=== PATIENT | male | born 1955 | race Caucasian/White ===

== ENCOUNTER → 2017-09-02 | Outpatient (CLI) | payer OTHER ==
[2017-09-02 08:49] LABS: CREATININE 1.44 mg/dL (0.70-1.30)
--- NOTE | 2017-09-02 10:53 | CT ---
Examination: CT of the chest with contrast. Clinical history: Cough, shortness of breath. Technique: Multiple axial images were obtained from the lung apices down to the lung bases, following the intravenous administration of 100 mL of Omnipaque 350. Dose reduction techniques including autom ated exposure control (AEC) and adjustment of mA and kV were utilized. Comparison: None available. Findings: There are multiple sternal wires and surgical clips in the mediastinum, consistent with a prior CABG. The heart is normal in size. The thoracic aorta is calcified with associated atherosclerotic changes, but is normal in caliber. Th e remainder of the great vessels are within normal limits. A small 1.7 x 0.8 cm right lower paratracheal lymph node is noted. No enlarged lymph nodes, by CT cri teria, are noted in the mediastinum, rita or axilla bilaterally. No central obstructing bronchial lesion is noted. No pleural or pericardial effusion is noted. Early emphysematous changes are noted at the lung apices bilaterally. The lungs otherwise clear. There is a 4.9 cm exophytic low-density mass associated with the mid to upper pole of the right kidne y, which measures approximately 23 Hounsfield units on the post contrasted images and probably repres ents a complicated benign cyst. A CT of the abdomen, with and without intravenous contrast could be o btained to exclude the possibility of a cystic neoplasm. The remainder of the visualized portion of t he upper abdomen is unremarkable. Degenerative changes are noted in the spine. No acute osseous abnormality is noted. Impression: 1. Early emphysematous changes are noted at the lung apices bilaterally. The lungs otherwise clear. 2. There is a 4.9 cm exophytic low-density mass associated with the mid to upper pole of the right ki dney, which measures approximately 23 Hounsfield units on the post contrasted images and probably rep resents a complicated benign cyst. A CT of the abdomen, with and without intravenous contrast could b e obtained to exclude the possibility of a cystic neoplasm. 3. There are postsurgical changes from a prior CABG. Reported By:
== END ==
LOC: RAD 08:11
PROVIDERS: ATTEND Nurse Practitioner Family
DX: R07.89 Other chest pain (principal); I25.10 Atherosclerotic heart disease of native coronary artery without angina pectoris; I70.219 Atherosclerosis of native arteries of extremities with intermittent claudication, unspecified extremity; J40 Bronchitis, not specified as acute or chronic; R09.89 Other specified symptoms and signs involving the circulatory and respiratory systems
CPT/HCPCS: 36415; 71260; 82565; 84520; A4222

== ENCOUNTER 2022-05-28 10:49 | Observation (INO) ==
[2022-05-28] MEDS: DUONEB 0.5 MG/3 MG (3 mL) NEB SCH ×3 (13:30→20:25)
[2022-05-28 14:27] LABS: BASOPHILS # (AUTO) 0.1 X10^3/uL (0.0-0.1); BASOPHILS % (AUTO) 1.2 % (0.2-1.0); EOSINOPHILS # (AUTO) 0.3 x10^3/uL (0.0-0.2); EOSINOPHILS % (AUTO) 2.8 % (0.9-2.9); HEMATOCRIT 46.2 % (42.0-54.0); HEMOGLOBIN 15.7 g/dL (13.5-18.0); LYMPHOCYTES # (AUTO) 4.2 X10^3/uL (1.3-2.9); LYMPHOCYTES % (AUTO) 35.8 % (21.0-51.0); MEAN CORPUSCULAR HEMOGLOBIN 28.6 pg (27.0-34.0); MEAN CORPUSCULAR HGB CONC 34.1 g/dL (33.0-35.0); MEAN PLATELET VOLUME 9.4 fL (7.4-11.0); MONOCYTES # (AUTO) 0.6 x10^3/uL (0.3-0.8); MONOCYTES % (AUTO) 5.5 % (0.0-13.0); NEUTROPHILS # (AUTO) 6.5 x10^3/uL (2.2-4.8); NEUTROPHILS % (AUTO) 54.7 % (42.0-75.0); RED CELL DISTRIBUTION WIDTH 15.3 % (11.6-16.5); WHITE BLOOD COUNT 11.8 X10^3/uL (3.6-10.0)
[2022-05-28 14:38] LABS: ALANINE AMINOTRANSFERASE 22 Units/L (12-78); ALBUMIN 3.8 g/dL (3.4-5.0); ALKALINE PHOSPHATASE 76 Units/L (46-116); ASPARTATE AMINO TRANSFERASE 13 Units/L (15-37); BLOOD UREA NITROGEN 17 mg/dL (7-18); CALCIUM 8.4 mg/dL (8.5-10.1); CARBON DIOXIDE 26.1 mmol/L (21-32); CHLORIDE 103 mmol/L (98-107); COR NA(FOR HYPERGLY) 137 mmol/L (136-145); SODIUM 137 mmol/L (136-145); TOTAL PROTEIN 7.1 g/dL (6.4-8.2); eGFR NON BLACK RACES 54 (>60)
[2022-05-28 15:48] VITALS: BMI 30.7
[2022-05-28] MEDS: NS 1,000 ML IV 1,000 ML IV SCH (16:00)
[2022-05-28] MEDS: LEVAQUIN PREMIX IV 750 MG 750 MG/150 ML BAG IV SCH (16:01)
[2022-05-28] MEDS: ZOSYN VIAL 4.5 GRAMS 4.5 G in NS 100 ML IV 100 ML IV SCH ×2 (16:03→21:12)
[2022-05-28] MEDS ORDERED: PULMICORT NEB TX 0.5 MG NEB ONE (19:27)
[2022-05-28] MEDS: PULMICORT NEB TX 0.5 MG NEB SCH (20:25)
[2022-05-28] MEDS: MORPHINE SULFATE INJ 2 MG INJ IVP PRN (23:47)
[2022-05-29] MEDS: DUONEB 0.5 MG/3 MG (3 mL) NEB SCH ×6 (00:05→21:00)
[2022-05-29 02:11] LABS: BASOPHILS # (AUTO) 0.1 X10^3/uL (0.0-0.1); BASOPHILS % (AUTO) 1.2 % (0.2-1.0); EOSINOPHILS # (AUTO) 0.1 x10^3/uL (0.0-0.2); EOSINOPHILS % (AUTO) 1.3 % (0.9-2.9); HEMATOCRIT 43.2 % (42.0-54.0); HEMOGLOBIN 14.8 g/dL (13.5-18.0); LYMPHOCYTES # (AUTO) 3.6 X10^3/uL (1.3-2.9); LYMPHOCYTES % (AUTO) 34.2 % (21.0-51.0); MEAN CORPUSCULAR HEMOGLOBIN 28.9 pg (27.0-34.0); MEAN CORPUSCULAR HGB CONC 34.4 g/dL (33.0-35.0); MEAN PLATELET VOLUME 9.3 fL (7.4-11.0); MONOCYTES # (AUTO) 0.6 x10^3/uL (0.3-0.8); MONOCYTES % (AUTO) 5.5 % (0.0-13.0); NEUTROPHILS # (AUTO) 6.1 x10^3/uL (2.2-4.8); NEUTROPHILS % (AUTO) 57.8 % (42.0-75.0); RED BLOOD COUNT 5.14 X10^6/uL (4.7-6.0); RED CELL DISTRIBUTION WIDTH 15.1 % (11.6-16.5); WHITE BLOOD COUNT 10.5 X10^3/uL (3.6-10.0)
[2022-05-29 02:22] LABS: ALBUMIN 3.3 g/dL (3.4-5.0); CALCIUM 7.9 mg/dL (8.5-10.1); CARBON DIOXIDE 26.8 mmol/L (21-32); COR CA(FOR HYPOALB) 8.5 mg/dL (8.5-10.1); CREATININE 1.49 mg/dL (0.70-1.30); TOTAL PROTEIN 6.2 g/dL (6.4-8.2)
[2022-05-29] MEDS: MORPHINE SULFATE INJ 2 MG INJ IVP PRN (03:56)
[2022-05-29] MEDS: NS 1,000 ML IV 1,000 ML IV SCH ×3 (03:58→19:53)
[2022-05-29] MEDS: ZOSYN VIAL 4.5 GRAMS 4.5 G in NS 100 ML IV 100 ML IV SCH ×3 (05:08→21:16)
--- NOTE | 2022-05-29 07:36 | RAD ---
HISTORYPneumoniaSTUDYChest AP [id number]/01/2022FINDINGSPati ent is status post median sternotomy and CABG. Heart size is normal. Serene are normal. Lung lopez are clear. No pleural effusions are identified. Bony thorax is unremarkable.IMPRESSIONNo significant abnormality identifiedElectronically signed by: NANCY RINALDI (May 29, 2022 07:35:13)
--- NOTE | 2022-05-29 08:25 | RAD ---
HISTORYFollow-up pneumoniaSTUDYChest AP [id number]/19/2022FINDINGSPati ent is status post median sternotomy and CABG. Heart size is normal. Serene are normal. Lungs are mildly hyperinflated but free of acute infiltrates. No pleural effusions are identified. Bony thorax is unremarkable.IMPRESSIONLungs hyperinflated but clearElectronically signed by: NANCY RINALDI (May 29, 2022 08:23:32)
[2022-05-29] MEDS: PULMICORT NEB TX 0.5 MG NEB SCH ×2 (08:37→21:00)
[2022-05-29] MEDS: LOVENOX INJ 40 MG SYR SC SCH (10:00)
[2022-05-29] MEDS: LEVAQUIN PREMIX IV 750 MG 750 MG/150 ML BAG IV SCH (10:00)
[2022-05-29] MEDS: DEMEROL INJ IVP PRN ×2 (11:34→17:57)
[2022-05-29] MEDS: PEPCID TAB 20 MG PO SCH (11:36)
[2022-05-29] MEDS: FLOMAX PO SCH (11:36)
[2022-05-29] MEDS: HYDROCHLOROTHIAZIDE 25 MG TAB PO SCH (11:36)
[2022-05-29] MEDS: PERCOCET TAB 5/325 MG PO SCH ×3 (11:45→21:15)
--- NOTE | 2022-05-29 13:14 | DR.UPDATE ---
H&P Update H&P Reviewed: Yes Any changes to H&P?: Yes Changes noted:: WAS A DIRECT ADMISSION FOR TREATMENT OF REFRACTORY SINUSITIS, DIZZINESS, AND BRONCHOPNEUMONIA. HE COMPLAINS OF INTRACTABLE HEADACHE, FRONTAL AND MAXILLARY SINUS TENDERNESS, DIZZINESS, NASAL CONGESTION, COUGH, AND INTERMITTENT CHEST DISCOMFORT. HE HAS TAKEN A Z-PACK AND LEVAQUIN 500MG PO DAILY X 7 DAYS, AND IPRATROPIUM NEBULIZER TREATMENTS WITHOUT IMPROVEMENT IN SYMPTOMS. ON ARRIVAL TO THE HOSPITAL, VITALS WERE 98.2 -64-20-97%-181/84. LABS WERE OBTAINED. WBC 11.87, RBC 5.50, HGB 15.7, HCT 46.2, SODIUM 137, POTASSIUM 4.5, CHLORIDE 103, CARBON DIOXIDE 26.1, BUN 17, CREATININE 1.40, GLUCOSE 118, CALCIUM 8.4, AST 13, ALT 22, ALK PHOS 76, TOTAL PROTEIN 7.1, ALBUMIN 3.8. A RESPIRATORY VIRAL PANEL WAS SET UP. CHEST XRAY WAS OBTAINED AND REVEALED: Patient is status post median sternotomy and CABG. Heart size is tosin l. Serene are normal. Lung lopez are clear. No pleural effusions are identified. Bony thorax is unremarkable. EKG REVEALED NORMAL SINUS RHYTHM WITH HR 60. HE WAS STARTED ON NORMAL SALINE AT 75 ML/HR, ZOSYN 4.5G IV TID, LEVAQUIN 750MG IV DAILY, DUONEBS Q4H, PULMICORT NEBS BID, LOVENOX 40MG SC DAILY, AND HIS HOME MEDICATIONS WERE RESUMED. WE WILL OBTAIN SERIAL CARDIAC ENZYMES AND EKGS, A CAROTID ULTRASOUND, AND A SINUS CT WITHOUT CONTRAST. OTHERWISE, WE PLAN TO FOLLOW-UP WITH AM LABS AND CONTINUE TO MONITOR. TIME SPENT ON CLINICAL ASSESSMENT, REVIWING LABS AND IMAGING, DECISION MAKING, AND DOCUMENTATION GREATER THAN 75 MINUTES. Patient was examined?: Yes
[2022-05-29] MEDS: NEURONTIN CAP 400 MG PO SCH ×2 (15:00→21:14)
[2022-05-30] MEDS: DEMEROL INJ IVP PRN ×2 (00:23→09:06)
[2022-05-30] MEDS: DUONEB 0.5 MG/3 MG (3 mL) NEB SCH ×3 (00:37→08:44)
[2022-05-30] MEDS: NEURONTIN CAP 400 MG PO SCH (05:21)
[2022-05-30] MEDS: PERCOCET TAB 5/325 MG PO SCH (05:23)
[2022-05-30] MEDS: ZOSYN VIAL 4.5 GRAMS 4.5 G in NS 100 ML IV 100 ML IV SCH (05:23)
[2022-05-30] MEDS: NS 1,000 ML IV 1,000 ML IV SCH ×2 (05:51→10:15)
[2022-05-30 06:44] LABS: BASOPHILS # (AUTO) 0.1 X10^3/uL (0.0-0.1); BASOPHILS % (AUTO) 1.2 % (0.2-1.0); EOSINOPHILS # (AUTO) 0.3 x10^3/uL (0.0-0.2); EOSINOPHILS % (AUTO) 3.1 % (0.9-2.9); HEMATOCRIT 41.7 % (42.0-54.0); HEMOGLOBIN 14.3 g/dL (13.5-18.0); LYMPHOCYTES # (AUTO) 4.6 X10^3/uL (1.3-2.9); LYMPHOCYTES % (AUTO) 44.5 % (21.0-51.0); MEAN CORPUSCULAR HGB CONC 34.3 g/dL (33.0-35.0); MEAN CORPUSCULAR VOLUME 84.6 fL (80.0-100.0); MEAN PLATELET VOLUME 9.8 fL (7.4-11.0); MONOCYTES # (AUTO) 0.7 x10^3/uL (0.3-0.8); MONOCYTES % (AUTO) 6.7 % (0.0-13.0); NEUTROPHILS # (AUTO) 4.6 x10^3/uL (2.2-4.8); NEUTROPHILS % (AUTO) 44.5 % (42.0-75.0); RED BLOOD COUNT 4.93 X10^6/uL (4.7-6.0); RED CELL DISTRIBUTION WIDTH 15.4 % (11.6-16.5); WHITE BLOOD COUNT 10.4 X10^3/uL (3.6-10.0)
[2022-05-30 06:58] LABS: ALANINE AMINOTRANSFERASE 20 Units/L (12-78); ALBUMIN 3.2 g/dL (3.4-5.0); ALKALINE PHOSPHATASE 70 Units/L (46-116); ASPARTATE AMINO TRANSFERASE 11 Units/L (15-37); BLOOD UREA NITROGEN 14 mg/dL (7-18); CALCIUM 7.8 mg/dL (8.5-10.1); CARBON DIOXIDE 25.1 mmol/L (21-32); CHLORIDE 107 mmol/L (98-107); COR CA(FOR HYPOALB) 8.4 mg/dL (8.5-10.1); COR NA(FOR HYPERGLY) 143 mmol/L (136-145); CREATININE 1.33 mg/dL (0.70-1.30); SODIUM 142 mmol/L (136-145); TOTAL PROTEIN 6.3 g/dL (6.4-8.2); eGFR NON BLACK RACES 57 (>60)
[2022-05-30] MEDS: PULMICORT NEB TX 0.5 MG NEB SCH (08:44)
[2022-05-30] MEDS: LEVAQUIN PREMIX IV 750 MG 750 MG/150 ML BAG IV SCH (08:55)
[2022-05-30] MEDS: HYDROCHLOROTHIAZIDE 25 MG TAB PO SCH (08:56)
[2022-05-30] MEDS: LOVENOX INJ 40 MG SYR SC SCH (08:56)
[2022-05-30] MEDS: FLOMAX PO SCH (08:56)
[2022-05-30] MEDS: PEPCID TAB 20 MG PO SCH (08:56)
--- NOTE | 2022-05-30 09:16 | VAS ---
HISTORY: Concern for carotid artery stenosis. Dizziness.EXAM: BILATERAL DOPPLER CAROTID ULTRASOUND EXAMTechnique: Multiple avila scale and color flow Doppler images of the right and left carotid arterial system were obtained. The vertebral arterial system was evaluated as well.Findings:Nonocclusive color flow Doppler is seen throughout the right and left carotid arterial system. No hemodynamically significant carotid arterial stenosis is seen based on velocity criteria. There is moderate bilateral carotid atherosclerosis and hard plaque formation of the bilateral carotid bulbs and ICAs with associated intimal thickening but without evidence for high-grade stenosis (>70%) or occlusion of the carotid arteries. The right and left vertebral artery demonstrate antegrade flow.IMPRESSION:Moderate bilateral carotid atherosclerosis and hard atherosclerotic plaque formation of the bilateral carotid bulbs and [in both] ICAs with [id number] associated carotid intimal thickening but without evidence for high-grade stenosis or occlusion of the carotid arteries, based on Doppler velocity criteria.Appropriate, antegrade, vertebral arterial flow.Peak right ICA velocity: 118 centimeter/seconds.Peak right CCA velocity: 76 centimeter/seconds.Peak left ICA velocity: 84 centimeter/seconds.Peak left CCA velocity: 54 centimeter/seconds.Right ICA to CCA ratio: 2.0.Left ICA to CCA ratio: 1.8.Electronically signed by: SAÚL JAQUEZ III (May 30, 2022 09:13:52)
[2022-05-30 10:13] VITALS: BP 159/71
== END 2022-05-30 13:34 | disposition home or self-care (01) ==
LOC: MED/SURG
PROVIDERS: ADMIT Internal Medicine; ATTEND Internal Medicine
DX: Z86.79 Personal history of other diseases of the circulatory system; Z20.822 Contact with and (suspected) exposure to COVID-19; J18.0 Bronchopneumonia, unspecified organism; E11.65 Type 2 diabetes mellitus with hyperglycemia; Z72.0 Tobacco use; J01.00 Acute maxillary sinusitis, unspecified; Z95.1 Presence of aortocoronary bypass graft; R51.9 Headache, unspecified; I10 Essential (primary) hypertension; I25.10 Atherosclerotic heart disease of native coronary artery without angina pectoris; R42 Dizziness and giddiness; B96.89 Other specified bacterial agents as the cause of diseases classified elsewhere; R07.9 Chest pain, unspecified; Z16.39 Resistance to other specified antimicrobial drug

== ENCOUNTER 2023-03-17 13:46 | Inpatient (IN) ==
--- NOTE | 2023-03-17 14:30 | DR.DIZZY ---
HPI Time seen Time Seen by Provider: 03/17/23 14:30 PCP Primary Care Physician: Dr. Ruff Complaint Chief Complaint Doctor Comments: 67 y/o male presents for evaluation. Having increasing weakness, dramatic weight loss over the past 6 weeks or so. Has had decreased appetite, worsening constipation. Has been falling frequently. Has left rib, R shoulder pain from recent falls. Saw GI today, recently had an EGD, dx'd with gastroparesis. Had a colonoscopy last year. Denies headache, visual changes, changes in meds. No URI symptoms. Has slight cough. No dyspnea. Denies vomiting or diarrhea. No urinary issues. Feels weak in general. Chief Complaint:: Pt states that over the past 6 weeks he has had around 45 lb weight loss. Over this period of time he has had progressively worsening generalized weakness, unsteady gait and several falls at home. Pt has had two falls this week. Pt c/o right shoulder pain and left rib pain from these recent falls. Nurses Notes Reviewed Nurses Notes Review: Yes Source History Provided: Patient Mode of Arrival Mode of Arrival: Wheelchair Timing Onset of Chief Complaint: 03/17/23 Context Stroke Symptoms: None PMH PMH Past Medical History: Yes Past Medical History: COPD, Coronary Artery Disease and Dyslipidemia Past Medical History Comment: gastroparesis Past Surgical History: Yes Surgical History: CABG/Valve Surgery Family History History of Family Medical Conditions: Yes Family Medical History: Diabetes Mellitus and Hypertension Social History Does patient currently use any type of tobacco product: Yes Have you used tobacco products in the last 12 months: Yes Type of Tobacco Use: Cigarettes Does any household member use tobacco: No Alcohol Use: None Do you use any recreational Drugs:: No Lives With: Spouse Lives Where: Home Infectious screening In the last 2 months have you had wt loss of >10#?: NO Have you had fever, night sweats or hemotysis?: No Have you traveled outside the country in the last 6 months?: No Isolation: Standard ROS Review of Systems Constitutional: Malaise and Weakness Eyes: No Symptoms Reported ENTM: No Symptoms Reported Respiratoy: Moist Cough Cardiovascular: Chest Pain (from fall) Gastrointestinal/Abdominal: Constipation Genitourinary: No Symptoms Reported Neurological: Weakness Musculoskeletal: No Symptoms Reported Integumentary: No Symptoms Reported Hematologic/Lymphatic: No Symptoms Reported All Other Systems: Reviewed and Negative PE Vital Signs Vitals: Vital Signs Temperature 98.1 F Pulse Rate 57 Pulse Rate 62 Pulse Rate 59 Pulse Rate 61 Pulse Rate 61 Pulse Rate 70 Pulse Rate 71 Pulse Rate 63 Pulse Rate 63 Pulse Rate 61 Pulse Rate 79 Pulse Rate 63 Respiratory Rate 22 Blood Pressure 157/72 Blood Pressure 153/74 Blood Pressure 172/82 Blood Pressure 154/84 Blood Pressure 187/86 O2 Sat by Pulse Oximetry 100 O2 Sat by Pulse Oximetry 98 O2 Sat by Pulse Oximetry 100 O2 Sat by Pulse Oximetry 98 O2 Sat by Pulse Oximetry 97 O2 Sat by Pulse Oximetry 97 O2 Sat by Pulse Oximetry 97 O2 Sat by Pulse Oximetry 98 O2 Sat by Pulse Oximetry 97 O2 Sat by Pulse Oximetry 98 O2 Sat by Pulse Oximetry 98 O2 Sat by Pulse Oximetry 100 General General Appearance: Alert and In No Apparent Distress Head Head Exam: Normal Inspection Eyes Eye exam: PERRL and EOMI ENT ENT Exam: Normal Exam, Normal Oropharynx and Mucous Membranes Moist Neck Neck Exam: Normal Inspection and Full ROM Respiratory Respiratory Exam: Normal Lung Sounds Bilat; negative Accessory Muscle Use or Respiratory Distress Cardiovascular Cardiovascular Exam: Regular Rate, Normal Rhythm and Normal Heart Sounds Abdominal Exam Abdominal Exam: Normal Bowel Sounds and Soft; negative Tenderness Extremeties Extremities Exam: Normal Inspection and Full ROM; negative Edema Neurologic Neurological Exam: Alert, Oriented X3 and CN II-XII Intact; negative Motor Sensory Deficit Skin Skin Exam: Warm and Dry COURSE Treatment Treatment: 67 y/o male with worsening weakness over the past several weaks, with a significant weight loss. PE benign, w/u initiated. 1614 - labs show calcium to be markedly elevated - 15.6. Rest of w/u overall acceptable. Highly concerning for possible bony malignancy. Recommend admission for IV hydration, to help lower calcium level. ROR Labs Reviewed Laboratory Results Reviewed?: Yes 03/17/23 15:10 03/17/23 15:10 Laboratory: WBC 16.0 X10^3/uL (3.6-10.0) H 03/17/23 15:10 RBC 5.98 X10^6/uL (4.7-6.0) 03/17/23 15:10 Hgb 16.3 g/dL (13.5-18.0) 03/17/23 15:10 Hct 49.5 % (42.0-54.0) 03/17/23 15:10 MCV 82.8 fL (80.0-100.0) 03/17/23 15:10 MCH 27.2 pg (27.0-34.0) 03/17/23 15:10 MCHC 32.8 g/dL (33.0-35.0) L 03/17/23 15:10 RDW 14.3 % (11.6-16.5) 03/17/23 15:10 Plt Count 364 X10^3/uL (150.0-450.0) 03/17/23 15:10 MPV 9.2 fL (7.4-11.0) 03/17/23 15:10 Neut % (Auto) 71.7 % (42.0-75.0) 03/17/23 15:10 Lymph % (Auto) 18.1 % (21.0-51.0) L 03/17/23 15:10 [place] % (Auto) 7.7 % (0.0-13.0) 03/17/23 15:10 Eos % (Auto) 1.3 % (0.9-2.9) 03/17/23 15:10 Baso % (Auto) 1.2 % (0.2-1.0) H 03/17/23 15:10 Neut # (Auto) 11.5 x10^3/uL (2.2-4.8) H 03/17/23 15:10 Lymph # (Auto) 2.9 X10^3/uL (1.3-2.9) 03/17/23 15:10 [place] # (Auto) 1.2 x10^3/uL (0.3-0.8) H 03/17/23 15:10 Eos # (Auto) 0.2 x10^3/uL (0.0-0.2) 03/17/23 15:10 Baso # (Auto) 0.2 X10^3/uL (0.0-0.1) H 03/17/23 15:10 Absolute Nucleated RBC 0.1 /100WBC 03/17/23 15:10 Sodium 134 mmol/L (136-145) L 03/17/23 15:10 Corrected Sodium 134 mmol/L (136-145) L 03/17/23 15:10 Potassium 3.3 mmol/L (3.5-5.1) L 03/17/23 15:10 Chloride 95 mmol/L (98-107) L 03/17/23 15:10 Carbon Dioxide 34.9 mmol/L (21-32) H 03/17/23 15:10 BUN 17 mg/dL (7-18) 03/17/23 15:10 Creatinine 2.02 mg/dL (0.70-1.30) H 03/17/23 15:10 Est GFR (MDRD) Af Amer 42 (>60) L 03/17/23 15:10 Est GFR (MDRD) Non-Af 35 (>60) L 03/17/23 15:10 Glucose 116 mg/dL (65-99) H 03/17/23 15:10 Calcium 15.6 mg/dL (8.5-10.1) H* 03/17/23 15:10 Corrected Calcium 16.2 mg/dL (8.5-10.1) H 03/17/23 15:10 Total Bilirubin 0.50 mg/dL (0.2-1.0) 03/17/23 15:10 AST 15 Units/L (15-37) 03/17/23 15:10 ALT 16 Units/L (12-78) 03/17/23 15:10 Alkaline Phosphatase 110 Units/L (46-116) 03/17/23 15:10 Troponin I High Sens 7.0 ng/L (4.0-60.0) 03/17/23 15:10 Total Protein 7.7 g/dL (6.4-8.2) 03/17/23 15:10 Albumin 3.3 g/dL (3.4-5.0) L 03/17/23 15:10 Globulin 4.4 g/dL (2.5-4.5) 03/17/23 15:10 Albumin/Globulin Ratio 0.8 Ratio (1.1-2.1) L 03/17/23 15:10 Lipase 99 Units/L (73-393) 03/17/23 15:10 TSH 3rd Generation 0.755 uIU/mL (0.358-3.74) 03/17/23 15:10 Specimen Type Clean catch urine 03/17/23 15:46 Urine Color Yellow (YELLOW) 03/17/23 15:46 Urine Appearance Hazy (CLEAR) 03/17/23 15:46 Urine pH 6.0 (5.0 - 8.0) 03/17/23 15:46 Ur Specific Lares 1.020 (1.000-1.030) 03/17/23 15:46 Urine Protein 1+ (NEGATIVE) 03/17/23 15:46 Urine Glucose (UA) Negative (NEGATIVE) 03/17/23 15:46 Urine Ketones Negative (NEGATIVE) 03/17/23 15:46 Urine Blood Negative (NEGATIVE) 03/17/23 15:46 Urine Nitrite Negative (NEGATIVE) 03/17/23 15:46 Urine Bilirubin Negative (NEGATIVE) 03/17/23 15:46 Urine Urobilinogen Normal (NORMAL) 03/17/23 15:46 Ur Leukocyte Esterase Negative (NEGATIVE) 03/17/23 15:46 Urine RBC None seen /HPF (0-3) 03/17/23 15:46 Urine WBC 0-2 /HPF (0-5) 03/17/23 15:46 Ur Squamous Epith Cells Few /HPF (NEGATIVE) 03/17/23 15:46 Amorphous Sediment 2+ /HPF (NEGATIVE) 03/17/23 15:46 Urine Bacteria Trace /HPF (NEGATIVE) 03/17/23 15:46 Hyaline Casts Few /LPF (NEGATIVE) 03/17/23 15:46 Urine Mucus Few /HPF (NEGATIVE) 03/17/23 15:46 Ur Culture Indicated? No/not indicated 03/17/23 15:46 Markedly elevated calcium XRAY XRAY Interpreted by: Both X-ray Results: CXR, R shoulder, L ribs - all without acute abnormallities. Opioid Opioid Risk Tool Total: 0 Total Score Risk Category: Low Risk Copyright: Nathaniel JAMES predicting aberrant behaviors Discharge Plan Diagnosis Discharge Problem: Hypercalcemia Discharge Plan Patient Disposition: 09 ADMITTED INPATIENT Condition: Stable Orders to Discharge Patient Discharge Orders: Transfer (Routine); Ordered 03/17/23 Ordered By: Bhupinder Crawley
[2023-03-17] MEDS ORDERED: NS 1,000 ML IV 1,000 ML IV ONE (14:35)
[2023-03-17] MEDS ORDERED: NS 1,000 ML IV 1,000 ML ONE (14:39)
[2023-03-17 15:20] LABS: BASOPHILS # (AUTO) 0.2 X10^3/uL (0.0-0.1); BASOPHILS % (AUTO) 1.2 % (0.2-1.0); EOSINOPHILS # (AUTO) 0.2 x10^3/uL (0.0-0.2); EOSINOPHILS % (AUTO) 1.3 % (0.9-2.9); HEMATOCRIT 49.5 % (42.0-54.0); HEMOGLOBIN 16.3 g/dL (13.5-18.0); LYMPHOCYTES # (AUTO) 2.9 X10^3/uL (1.3-2.9); LYMPHOCYTES % (AUTO) 18.1 % (21.0-51.0); MEAN CORPUSCULAR HEMOGLOBIN 27.2 pg (27.0-34.0); MEAN CORPUSCULAR HGB CONC 32.8 g/dL (33.0-35.0); MEAN CORPUSCULAR VOLUME 82.8 fL (80.0-100.0); MEAN PLATELET VOLUME 9.2 fL (7.4-11.0); MONOCYTES # (AUTO) 1.2 x10^3/uL (0.3-0.8); MONOCYTES % (AUTO) 7.7 % (0.0-13.0); NEUTROPHILS # (AUTO) 11.5 x10^3/uL (2.2-4.8); NEUTROPHILS % (AUTO) 71.7 % (42.0-75.0); PLATELET COUNT 364 X10^3/uL (150.0-450.0); RED BLOOD COUNT 5.98 X10^6/uL (4.7-6.0); RED CELL DISTRIBUTION WIDTH 14.3 % (11.6-16.5)
[2023-03-17 15:40] LABS: ALBUMIN 3.3 g/dL (3.4-5.0); CARBON DIOXIDE 34.9 mmol/L (21-32); CREATININE 2.02 mg/dL (0.70-1.30); POTASSIUM 3.3 mmol/L (3.5-5.1); TOTAL PROTEIN 7.7 g/dL (6.4-8.2); TSH (3RD GENERATION) 0.755 uIU/mL (0.358-3.74)
[2023-03-17 15:51] LABS: BILIRUBIN,URINE NEGATIVE (NEGATIVE); BLOOD/HEMOGLOBIN,URINE NEGATIVE (NEGATIVE); GLUCOSE, URINE NEGATIVE (NEGATIVE); KETONES,URINE NEGATIVE (NEGATIVE); LEUKOCYTE ESTERASE ,URINE NEGATIVE (NEGATIVE); NITRITES,URINE NEGATIVE (NEGATIVE); PROTEIN,URINE 1+ (NEGATIVE); UROBILINOGEN,URINE NORMAL (NORMAL)
--- NOTE | 2023-03-17 15:52 | CT ---
EXAM: HEAD CT WITHOUT INTRAVENOUS CONTRASTHISTORY: Frequent falls. Cannot keep balance.TECHNIQUE: Spiral axial CT images are obtained through the brain without the administration of intravenous contrast. Sagittal and coronal reformatted images are reconstructed.DOSIMETRY: Total DLP 912.24 mGycm; CTDI 48 mGyCOMPARISON: None available.FINDINGS:There is mild diffuse cerebral cortical atrophy. The centrum semiovale, basal ganglia, cerebellum, and brainstem are otherwise grossly unremarkable for a noncontrast CT scan. Atherosclerosis of the carotid siphons is seen. Consider follow-up MRA as clinically warranted.There is no acute intracranial hemorrhage, discernible acute infarction, mass lesion, midline shift, or hydrocephalus seen. Nonspecific pineal gland calcification is seen. No extra-axial mass or abnormal fluid collection is seen.The calvarium is intact. The partially imaged paranasal sinuses, middle ear cavities, and mastoid air cells are clear.IMPRESSION:1. No skull fracture, intracranial hemorrhage, discernible acute infarction, mass lesions, midline shift, mass effect or hydrocephalus seen.2. Mild diffuse cerebral cortical atrophy.3. Atherosclerosis of the carotid siphons is seen.4. Consider followup evaluation with MRI /MRA imaging for further assessment as clinically warranted.Electronically signed by: Nel Mckeon (Mar 17, 2023 15:49:21)
[2023-03-17 15:54] LABS: CALCIUM 15.6 mg/dL (8.5-10.1); COR CA(FOR HYPOALB) 16.2 mg/dL (8.5-10.1)
[2023-03-17 15:59] LABS: APPEARANCE,URINE HAZY (CLEAR); BACTERIA,URINE TRACE /HPF (NEGATIVE); COLOR,URINE YELLOW (YELLOW); HYALINE CASTS, URINE FEW /LPF (NEGATIVE); RBC,URINE NONE SEEN /HPF (0-3); SQUAMOUS EPITHELIAL CELL,UR FEW /HPF (NEGATIVE)
[2023-03-17] MEDS ORDERED: PROTONIX INJ 40 MG VIAL IVP ONE (16:29)
[2023-03-17] MEDS ORDERED: MAALOX or MYLANTA PO ONE (16:30)
[2023-03-17] MEDS ORDERED: MAALOX or MYLANTA ONE (16:32)
[2023-03-17] MEDS ORDERED: PROTONIX INJ 40 MG VIAL ONE (16:32)
[2023-03-17] MEDS ORDERED: CONSULT PHARMACY - POTASSIUM & MAGNESIUM XX SCH (17:36)
[2023-03-17] MEDS: D5 1/2 NS 1,000 ML 1,000 ML IV SCH (18:15)
[2023-03-17] MEDS: NICOTINE PATCH TD SCH (18:16)
[2023-03-17] MEDS ORDERED: K-DUR TAB 20 MEQ PO ONE (19:00)
[2023-03-17] MEDS: NEURONTIN CAP 400 MG PO SCH (21:02)
[2023-03-17] MEDS: ROXICODONE TAB 15 MG PO PRN (21:04)
--- NOTE | 2023-03-17 22:54 | RAD ---
HISTORYRib pain, injury in a fall, weakness and weight loss deleteSTUDYRIB SERIESCOMPARISONNoneFINDINGSThe frontal chest radiograph demonstrates abnormal masslike density in the right infrahilar lung. Median sternotomy wires. No displaced fracture.IMPRESSIONMasslike density right infrahilar chest requires further evaluation with contrast enhanced CT of the chest. Pulmonary malignancy, summation artifact, vascular engorgement or adenopathy would be differential considerations.No displaced rib fracture.Electronically signed by: Lalo Johnson (Mar 17, 2023 22:52:22)
--- NOTE | 2023-03-17 22:59 | RAD ---
HISTORYRight shoulder painSTUDYSHOULDER, RIGHTCOMPARISONNoneFINDINGSMedian sternotomy wires. There is lucency and cortical loss involving the distal clavicle which could be due to re-absorption. Shoulder is not dislocated. Possible right infrahilar mass.IMPRESSIONRight infrahilar masslike density may represent lung malignancy. Contrast enhanced CT imaging of the chest is suggested.Demineralization and cortical loss distal clavicle.Electronically signed by: Lalo Johnson (Mar 17, 2023 22:58:24)
[2023-03-18] MEDS: D5 1/2 NS 1,000 ML 1,000 ML IV SCH ×2 (01:04→07:28)
[2023-03-18] MEDS: NEURONTIN CAP 400 MG PO SCH (05:05)
[2023-03-18 06:22] LABS: ALBUMIN 2.7 g/dL (3.4-5.0); CARBON DIOXIDE 33.4 mmol/L (21-32); COR CA(FOR HYPOALB) 15.3 mg/dL (8.5-10.1); CREATININE 1.97 mg/dL (0.70-1.30); POTASSIUM 3.9 mmol/L (3.5-5.1); TOTAL PROTEIN 6.4 g/dL (6.4-8.2)
[2023-03-18 06:23] LABS: BASOPHILS # (AUTO) 0.1 X10^3/uL (0.0-0.1); BASOPHILS % (AUTO) 0.7 % (0.2-1.0); EOSINOPHILS # (AUTO) 0.4 x10^3/uL (0.0-0.2); EOSINOPHILS % (AUTO) 2.8 % (0.9-2.9); HEMATOCRIT 43.9 % (42.0-54.0); HEMOGLOBIN 14.7 g/dL (13.5-18.0); LYMPHOCYTES % (AUTO) 19.7 % (21.0-51.0); MEAN CORPUSCULAR HEMOGLOBIN 27.4 pg (27.0-34.0); MEAN CORPUSCULAR HGB CONC 33.4 g/dL (33.0-35.0); MEAN PLATELET VOLUME 9.7 fL (7.4-11.0); MONOCYTES # (AUTO) 1.2 x10^3/uL (0.3-0.8); MONOCYTES % (AUTO) 7.5 % (0.0-13.0); NEUTROPHILS # (AUTO) 10.7 x10^3/uL (2.2-4.8); NEUTROPHILS % (AUTO) 69.3 % (42.0-75.0); PLATELET COUNT 331 X10^3/uL (150.0-450.0); RED BLOOD COUNT 5.35 X10^6/uL (4.7-6.0); RED CELL DISTRIBUTION WIDTH 14.2 % (11.6-16.5); WHITE BLOOD COUNT 15.5 X10^3/uL (3.6-10.0)
[2023-03-18 06:31] LABS: CALCIUM 14.3 mg/dL (8.5-10.1)
[2023-03-18] MEDS: D5 NS 1,000 ML IV 1,000 ML IV SCH ×2 (08:30→20:26)
[2023-03-18] MEDS: ROXICODONE TAB 15 MG PO PRN ×2 (08:57→20:25)
[2023-03-18] MEDS: ATIVAN TAB 1 MG PO PRN (08:57)
[2023-03-18] MEDS: NICOTINE PATCH TD SCH (08:57)
[2023-03-18] MEDS: FLOMAX PO SCH (08:57)
[2023-03-18] MEDS ORDERED: LASIX IVP SCH (09:00)
[2023-03-18] MEDS ORDERED: PROTONIX TAB 40 MG PO SCH (09:00)
[2023-03-18] MEDS ORDERED: KEFLEX CAP 500 MG PO SCH (09:00)
[2023-03-18] MEDS ORDERED: PROTONIX INJ 40 MG VIAL IVP SCH (12:00)
--- NOTE | 2023-03-18 12:04 | DR.H&P ---
H&P - History & Physical for Day of: H&P Date: 03/17/23 - Chief Complaint Chief Complaint: WEAKNESS, WEIGHT LOSS, DECREASED APPETITE, COUGH - History of Present Illness History of Present Illness: IS A 67 YEAR OLD PATIENT OF OURS. HE PRESENTED TO THE ER WITH COMPLAINTS OF INCREASING WEAKNESS, WEIGHT LOSS, DECREASED APPETITE, AND WORSENING CONSTIPATION. HE ADMITS TO A 45 POUND WEIGHT LOSS OVER THE PAST 6 WEEKS. HE ALSO REPORTS RIGHT SHOULDER PAIN AND LEFT RIB PAIN DUE TO RECENT FALLS. PATIENT REPORTS THAT HE HAS BEEN FALLING FREQUENTLY. HE SAW THE PRODUCTION COST ESTIMATOR RECENTLY FOR AN EGD. HE WAS DIAGNOSED WITH GASTROPARESIS. HE REPORTS HAVING A COLONOSCOPY LAST YEAR. HE DENIES HEADACHE, VISUAL CHANGES, URI SYMPTOMS, OR CHANGES IN MEDICATIONS. HE DOES ADMIT TO HAVING A SLIGHT. COUGH. HE DESCRIBES HIS RIB AND SHOULDER PAIN DULL AND ACHING. HE RATES PAIN A HIS PMH INCLUDES: COPD, CAD, DYSLIPIDEMIA, GASTROPARESIS, CABG. ON ARRIVAL TO THE ER, HIS VITALS WERE: 98.1-79-22-98%-187/86. LABS WERE OBTAINED. WBC 16.0, RBC 5.98, HGB 16.3, HCT 49.5, PLT COUNT 364, SODIUM 134, POTASSIUM 3.3, CHLORIDE 95, CARBON DIOXIDE 34.9, BUN 17, CREATININE 2.02, GLUCOSE 116, CALCIUM 15.6, MAGENSIUM 2.2, AST 15, ALT 16, ALK PHOS 110, TOTAL PROTEIN 7.7, ALBUMIN 3.3, GLOBULIN 4.4, LIPASE 99, TSH 0.755, PSA 1.32. A URINALYSIS WAS OBTAINED. WBC 0-2, RBC NONE SEEN, BACTERIA TRACE, URINE PROTEIN 1+. A RIB SERIES AND CHEST XRAY WAS OBTAINED AND REVEALED: Masslike density right infrahilar chest requires further evaluation with contrast enhanced CT of the chest. Pulmonary malignancy, summation artifact, vascular engorgement or adenopathy would be differential considerations. No displaced rib fracture. A RIGHT SHOULDER XRAY WAS OBTAINED AND REVEALED: Right infrahilar masslike density may represent lung malignancy. Contrast enhanced CT imaging of the chest is suggested. Demineralization and cortical loss distal clavicle. A BRAIN CT WITHOUT CONTRAST WAS OBTAINED AND REVEALED: No skull fracture,. intracranial hemorrhage, discernible acute infarction, mass lesions, midline shift, mass effect or hydrocephalus seen. 2. Mild diffuse cerebral cortical atrophy. 3. Atherosclerosis of the carotid siphons is seen. 4. Consider follow-up e valuation with MRI /MRA imaging for further assessment as clinically. warranted. IN THE ER, HE WAS GIVEN A NORMAL SALINE BOLUS, PROTONIX 40MG IV X 1, MAALOX 30ML PO X 1, POTASSIUM 40MEQ PO X 1. HE WAS ADMITTED TO THE HOSPITAL FOR FURTHER EVALUATION AND TREATMENT OF RIGHT LUNG MASS, WEIGHT LOSS, GENERALIZED WEAKNESS, DEHYDRATION, HYPERCALCEMIA, HYPOKALEMIA, HYPOALBUMINEMIA. HE WAS STARTED ON D5NS AT 150 ML/HR, PEPCID 20MG IV Q12H, PROTONIX 40MG IV BID, AND A NICOTINE PATCH. WE WILL RESUME HIS HOME MEDICATIONS OF GABAPENTIN, LORAZEPAM, ROXICODONE, AND FLOMAX. WE WILL OBTAIN A CHEST CT WITH CONTRAST TO FURTHER ASSESS THE RIGHT LUNG MASS. WE WILL ORDER A CEA LEVEL, IONIZED CALCIUM, PTH INTACT, UPEP, SPEP, AND PROTEIN ELECTROPHORESIS. WE WILL ORDER AN OUTPATIENT BONE SCAN. OTHERWISE, WE WILL FOLLOW-UP WITH AM LABS AND CONTINUE TO MONITOR. TIME SPENT ON CLINICAL ASSESSMENT, REVIEWING LABS AND IMAGING, DECISION MAKING, AND DOCUMENTATION GREATER THAN 75 MINUTES. - Past Medical History Past Medical History: Coronary Artery Disease, Dyslipidemia, COPD Additional Medical History: GASTROPARESIS - Past Surgical History Surgical History: CABG/Valve Surgery - Family History Family Medical History: Diabetes Mellitus, Hypertension - Social History Does patient currently use any type of tobacco product: Yes Have you used tobacco products in the last 12 months: Yes Type of Tobacco Use: Cigarettes Does any household member use tobacco: No Alcohol Use: None Drug Use: None - Review of Systems Constitutional: Weakness, Other (WEIGHT LOSS ) ENT: No Symptoms Reported Respiratory: Cough Cardiovascular: Chest Pain (LEFT SIDE CHEST AND RIB PAIN ) Gastrointestinal: Nausea, Constipation. denies: Vomiting, Abdominal Pain Genitourinary: No Symptoms Reported Musculoskeletal: Shoulder Pain (RIGHT ), Other (LEFT SIDE RIB PAIN ) Skin: No Symptoms Reported Neurological: Weakness - Physical Exam Vital Signs: Vital Signs Temperature 97.0 F Temperature 98.2 F Pulse Rate [Left Radial] 72 Pulse Rate [Left Radial] 68 Respiratory Rate 15 Respiratory Rate 15 Respiratory Rate 20 Respiratory Rate 20 Blood Pressure [Left Arm] 132/66 Blood Pressure [Left Arm] 192/77 Blood Pressure [Left Arm] 169/75 O2 Sat by Pulse Oximetry 97 O2 Sat by Pulse Oximetry 98 Oriented: Normal Eyes: Normal Ear: Normal Nose: Normal Throat: Normal Respiratory: Diminished Throughout Cardiovascular: Normal : Normal Auscultation: Bowel Sounds: Normal Palpation: Normal Tenderness: Normal Skin: Decreased Turgur Musculoskeletal: Right, Shoulder, Tender Psychiatric: Normal Mood Description: Calm Affect: Normal Speech Pattern: Clear - Assessment/Plan (1) Mass of right lung Status: Acute Plan: ADMIT, D5NS AT 150 ML/HR, PEPCID 20MG IV Q12H, PROTONIX 40MG IV BID, AND A NICOTINE PATCH. WE WILL RESUME HIS HOME MEDICATIONS OF GABAPENTIN, LORAZEPAM, ROXICODONE, AND FLOMAX. OBTAIN CHEST CT WITH CONTAST, CEA LEVEL, IONIZED CALCIU M, PTH INTACT, UPEP, SPEP, AND PROTEIN ELECTROPHORESIS (2) Dehydration Status: Acute (3) Hypercalcemia Status: Acute (4) Hypokalemia Status: Acute (5) Hypoalbuminemia Status: Acute (6) Generalized weakness Status: Acute (7) Weight loss Status: Acute (8) BPH (benign prostatic hyperplasia) Qualifiers: Lower urinary tract symptom presence: unspecified whether lower urinary tract symptoms present Qualified Code(s): N40.0 - Benign prostatic hyperplasia without lower urinary tract symptoms Status: Chronic (9) GERD (gastroesophageal reflux disease) Qualifiers: Esophagitis presence: esophagitis presence not specified Qualified Code(s): K21.9 - Gastro-esophageal reflux disease without esophagitis Status: Chronic (10) Generalized anxiety disorder Status: Chronic (11) Gastroparesis Status: Chronic - Allergies Allergies/Adverse Reactions: Allergies Allergy/AdvReac Type Severity Reaction Status Date / Time No Known Allergies Allergy Verified 03/17/23 14:45 - Medications Home Medications: Home Medications Medication Instructions Recorded Confirmed ergocalciferol (vitamin D2) 1,250 1,250 mcg PO QWEEK 03/17/23 03/17/23 mcg (50,000 unit) capsule furosemide 40 mg tablet 40 mg PO BID 03/17/23 03/17/23 gabapentin 800 mg tablet 800 mg PO TID 03/17/23 03/17/23 lorazepam 1 mg tablet 1 mg PO BID PRN 03/17/23 03/17/23 oxycodone 15 mg tablet 15 mg PO TID PRN pain 03/17/23 03/17/23 pantoprazole 40 mg tablet,delayed 40 mg PO QDAY 03/17/23 03/17/23 release tamsulosin 0.4 mg capsule 0.4 mg PO QDAY 03/17/23 03/17/23
[2023-03-18] MEDS: PEPCID 20 MG VIAL 20 MG in NS 50 ML IV 50 ML IV SCH (13:06)
[2023-03-18] MEDS: NEURONTIN CAP 300 MG PO SCH ×2 (13:07→21:03)
[2023-03-18] MEDS: LOVENOX INJ 40 MG SYR SC SCH (15:13)
[2023-03-18] MEDS: PROTONIX INJ 40 MG VIAL IVP SCH (20:26)
[2023-03-19] MEDS: D5 NS 1,000 ML IV 1,000 ML IV SCH ×3 (03:04→16:10)
[2023-03-19 05:44] LABS: BASOPHILS # (AUTO) 0.2 X10^3/uL (0.0-0.1); BASOPHILS % (AUTO) 1.2 % (0.2-1.0); EOSINOPHILS # (AUTO) 0.6 x10^3/uL (0.0-0.2); EOSINOPHILS % (AUTO) 4.5 % (0.9-2.9); HEMATOCRIT 43.4 % (42.0-54.0); HEMOGLOBIN 14.3 g/dL (13.5-18.0); LYMPHOCYTES # (AUTO) 2.8 X10^3/uL (1.3-2.9); LYMPHOCYTES % (AUTO) 21.3 % (21.0-51.0); MEAN CORPUSCULAR HEMOGLOBIN 27.3 pg (27.0-34.0); MEAN CORPUSCULAR HGB CONC 33.1 g/dL (33.0-35.0); MEAN CORPUSCULAR VOLUME 82.5 fL (80.0-100.0); MEAN PLATELET VOLUME 9.5 fL (7.4-11.0); MONOCYTES % (AUTO) 7.4 % (0.0-13.0); NEUTROPHILS # (AUTO) 8.8 x10^3/uL (2.2-4.8); NEUTROPHILS % (AUTO) 65.6 % (42.0-75.0); PLATELET COUNT 363 X10^3/uL (150.0-450.0); RED BLOOD COUNT 5.25 X10^6/uL (4.7-6.0); WHITE BLOOD COUNT 13.4 X10^3/uL (3.6-10.0)
[2023-03-19] MEDS: ROXICODONE TAB 15 MG PO PRN ×2 (05:48→10:03)
[2023-03-19] MEDS: NEURONTIN CAP 300 MG PO SCH ×4 (05:48→22:02)
[2023-03-19] MEDS ORDERED: OMNIPAQUE 350 mg/mL 100 mL BTL 100 ML ONE (05:49)
[2023-03-19 05:59] LABS: ALANINE AMINOTRANSFERASE 40 Units/L (12-78); ALBUMIN 2.5 g/dL (3.4-5.0); ALKALINE PHOSPHATASE 103 Units/L (46-116); ASPARTATE AMINO TRANSFERASE 39 Units/L (15-37); BLOOD UREA NITROGEN 15 mg/dL (7-18); CHLORIDE 100 mmol/L (98-107); COR CA(FOR HYPOALB) 14.4 mg/dL (8.5-10.1); CREATININE 1.87 mg/dL (0.70-1.30); GLUCOSE 108 mg/dL (65-99); POTASSIUM 3.7 mmol/L (3.5-5.1); SODIUM 136 mmol/L (136-145); TOTAL PROTEIN 6.2 g/dL (6.4-8.2); eGFR NON BLACK RACES 38 (>60)
[2023-03-19 06:02] LABS: CALCIUM 13.2 mg/dL (8.5-10.1)
[2023-03-19] MEDS ORDERED: CONSULT PHARMACY - POTASSIUM & MAGNESIUM XX SCH (07:00)
[2023-03-19] MEDS ORDERED: K-DUR TAB 20 MEQ PO SCH (09:00)
[2023-03-19] MEDS: FLOMAX PO SCH (09:16)
[2023-03-19] MEDS: MAG-OX TAB PO SCH ×2 (09:16→20:34)
[2023-03-19] MEDS: LOVENOX INJ 40 MG SYR SC SCH (09:16)
[2023-03-19] MEDS: PEPCID 20 MG VIAL 20 MG in NS 50 ML IV 50 ML IV SCH (09:17)
[2023-03-19] MEDS: PROTONIX INJ 40 MG VIAL IVP SCH ×2 (09:17→20:34)
[2023-03-19] MEDS: NICOTINE PATCH TD SCH (09:17)
[2023-03-19] MEDS ORDERED: NS 500 ML IV 500 ML with AREDIA 90 MG IV ONE ×2 (11:00)
--- NOTE | 2023-03-19 11:31 | CT ---
HISTORYSUSPECTED MASS right infrahilar region, abnormal chest x-ray, weight loss, weaknessSTUDYCT chest with IV contrastCOMPARISONX-ray 03/17/2023TECHNIQUEMultiple axial images of the chest were obtained from the thoracic inlet to the upper abdomenwith the administration of IV contrast. Sagittal and coronal reformations are performed. Dose reduction techniques including Automated Exposure Control (AEC) and adjustment of mA and kV were utilized.FINDINGSThere is a mass in the right hilum and right lower lobe of the lungs. It is highly suspicious for primary lung cancer. It measures approximately 5.6 x 3.9 x 4.8 cm. There is probable endobronchial spread of the tumor in the right lower lobe, also but this may just be mucous plugging. There is a 1.5 mm right lower lobe nodule on image 49 of series 5.In the left lower lobe there is a 9 mm nodule on image 56 of series 5. This could be metastatic disease but may just be rounded atelectasis. Another 2.0 mm nodule is suspected in the right upper lobe on image 25. No pneumothorax or pleural effusion is seen. Mild COPD changes are suspected.There is malignant sub carinal lymphadenopathy that measures 2.9 x 2.1 cm. In the superior aspect of the right hilum there is either malignant lymphadenopathy or direct spread of tumor that measures 2.1 x 1.4 cm. A few small mediastinal lymph nodes are present, also. The heart and thoracic aorta are normal in size.There is a slightly hyperdense nodule in the lateral limb of the left adrenal gland. It measures 1.1 x 1.0 cm and is worrisome for metastatic disease. Suggest characterization with MRI. There is a mass medial to the superior aspect of the right kidney that measures 1.5 x 1.5 cm. A few smaller nodules are seen in the para renal fat, also. These are suspicious for metastatic disease. It is uncertain if the 1.5 cm mass near the right renal hilum is renal in origin or is metastatic disease. Two benign-appearing right renal cysts are present, also. Accessory splenule is seen inferiorly.IMPRESSION5.6 x 3.9 x 4.8 cm mass is seen in the right hilum and right lower lobe of the lungs and is highly suspicious for lung cancer. Less likely this is metastatic disease. Malignant-appearing mediastinal lymphadenopathy is seen.Probable small metastasis is seen in the left adrenal gland and there are severalRenal nodular density that are suspicious for metastatic disease. A 1.5 cm mass associated with the medial aspect of the right kidney could be of renal origin but may be metastatic disease.Suggest further evaluation of the lung mass with biopsy. Contrast enhanced MRI of the abdomen is recommended to evaluate the adrenal and renal lesions.Electronically signed by: Kenneth Smith (Mar 19, 2023 11:29:59)
--- NOTE | 2023-03-19 13:16 | PCM.PROG ---
Progress Note - Progress Note for Day of Date of Exam: 03/19/23 - Subjective Subjective: IS CURRENTLY INPATIENT STATUS. HE WAS ADMITTED FOR FURTHER EVALUATION AND TREATMENT OF A MASS OF THE RIGHT LUNG, DEHYDRATION, HYPERCALCEMIA, HYPOKALEMIA, HYPOALBUMINEMIA, GENERALIZED WEAKNESS, AND WEIGHT LOSS. HE HAS A PMH OF COPD, CAD, DYSLIPIDEMIA, GASTROPARESIS, CABG. TODAY, HE IS ALERT AND ORIENTED, LYING IN BED ON MORNING ROUNDS. HE CONTINUES TO COMPLAIN OF WEAKNESS, DECREASED APPETITE, RIGHT SHOULDER PAIN, AND CONSTIPATION THIS MORNING. HE DENIES SIGNIFICANT IMPROVEMENT IN SYMPTOMS SINCE ADMISSION. ON EXAMINATION, HEART IS REGULAR IN RATE AND RHYTHM. BILATERAL LUNGS ARE NOTED WITH DIMINISHED LUNG SOUNDS THROUGHOUT. ABDOMEN IS ROUND, SOFT, AND NON-TENDER WITH HYPERACTIVE BOWEL SOUNDS NOTED IN ALL QUADRANTS. GOOD MOVEMENT NOTED TO UPPER AND LOWER EXTREMITIES WITH NO EDEMA NOTED. HIS VITALS THIS MORNING ARE: 97.6-66-20-98%-150/70. LABS WERE OBTAINED. WBC 13.4, RBC 5.25, HGB 14.3, HCT 43.4, PLT COUNT 363, SODIUM 136, POTASSIUM 3.7, CHLORIDE 100, CARBON DIOXIDE 33.0, BUN 15, CREATININE 1.87, GLUCOSE 108, CALCIUM 13.2, MAGNESIUM 1.8, AST 39, ALT 40, ALK PHOS 103, TOTAL PROTEIN 6.2, ALBUMIN 2.5. A CHEST CT WITH CONTRAST WAS OBTAINED THIS MORNING AND REVEALED: 5.6 x 3.9 x 4.8 cm mass is seen in the right hilum and right lower lobe of the lungs and is highly suspicious for lung cancer. Less likely this is metastatic disease. Malignant-appearing mediastinal. lymphadenopathy is seen. Probable small metastasis is seen in the left adrenal gland and there are several. Renal nodular density that are suspicious for metastatic disease. A 1.5 cm mass associated with the medial aspect of the right kidney could be of renal origin but may be metastatic disease. Suggest further evaluation of the lung mass with biopsy. Contrast enhanced MRI of the abdomen is recommended to evaluate the adrenal and renal lesions. HE IS CURRENTLY RECEIVING D5NS AT 150 ML/HR, PEPCID 20MG IV Q12H, PROTONIX 40MG IV BID, AND A NICOTINE PATCH. WE WILL RESUME HIS HOME MEDICATIONS OF GABAPENTIN, LORAZEPAM, ROXICODONE, AND FLOMAX. WE WILL ORDER A MRI OF THE ABDOMEN WITH CONTRAST TO GET A BETTER LOOK AT THE ADRENAL AND RENAL LESIONS. OTHERWISE, WE WILL CONTINUE WITH CURRENT PLAN OF CARE TODAY. HE WILL NEED AN ONCOLOGY REFERRAL FOLLOWING DISCHARGE. CEA, IONIZED CALCIUM, PTH INTACT, UPEP, SPEP, AND PROTEIN ELECTROPHORESIS LEVELS ARE PENDING. WE WILL FOLLOW UP WITH AM LABS AND CONTINUE TO MONITOR. TIME SPENT ON CLINICAL ASSESSMENT, REVIEWING LABS AND IMAGING, DECISION MAKING, AND DOCUM ENTATION GREATER THAN 45 MINUTES. - Past Medical Family Social History Past Med/Fam/Surg Hx: No changes since H&P Allergies: Allergies No Known Allergies Allergy (Verified 03/17/23 14:45) - Review of Systems ROS: No change since H&P - Vital Signs and I&O's Vital Signs: Vital Signs Temperature 98.2 F Temperature 97.6 F Pulse Rate [Left Radial] 55 Pulse Rate [Left Radial] 66 Respiratory Rate 20 Respiratory Rate 20 Respiratory Rate 20 Respiratory Rate 20 Respiratory Rate 16 Respiratory Rate 16 Blood Pressure [Left Arm] 112/64 Blood Pressure [Left Arm] 150/70 O2 Sat by Pulse Oximetry 99 O2 Sat by Pulse Oximetry 98 Intake and Output: Intake & Output 03/17/23 03/18/23 03/19/23 03/20/23 11:59 11:59 11:59 11:59 Intake Total 1700 / 1700 4722 / 4722 Balance 1700 / 1700 4722 / 4722 - Physical Exam Oriented: Normal Eyes: Normal Ear: Normal Nose: Normal Throat: Normal Respiratory: Generalized, Diminished Cardiovascular: Normal : Normal Auscultation: Bowel Sounds: Increased Palpation: Normal Tenderness: Normal Skin: Decreased Turgur Musculoskeletal: Right, Shoulder, Tender Psychiatric: Normal Mood Description: Calm Affect: Normal Speech Pattern: Clear, Appropriate - Laboratory and Diagnostics Result Diagrams: 03/19/23 05:14 03/19/23 05:14 Labs: Laboratory WBC 13.4 X10^3/uL (3.6-10.0) H 03/19/23 05:14 RBC 5.25 X10^6/uL (4.7-6.0) 03/19/23 05:14 Hgb 14.3 g/dL (13.5-18.0) 03/19/23 05:14 Hct 43.4 % (42.0-54.0) 03/19/23 05:14 MCV 82.5 fL (80.0-100.0) 03/19/23 05:14 MCH 27.3 pg (27.0-34.0) 03/19/23 05:14 MCHC 33.1 g/dL (33.0-35.0) 03/19/23 05:14 RDW 14.0 % (11.6-16.5) 03/19/23 05:14 Plt Count 363 X10^3/uL (150.0-450.0) 03/19/23 05:14 MPV 9.5 fL (7.4-11.0) 03/19/23 05:14 Neut % (Auto) 65.6 % (42.0-75.0) 03/19/23 05:14 Lymph % (Auto) 21.3 % (21.0-51.0) 03/19/23 05:14 [place] % (Auto) 7.4 % (0.0-13.0) 03/19/23 05:14 Eos % (Auto) 4.5 % (0.9-2.9) H 03/19/23 05:14 Baso % (Auto) 1.2 % (0.2-1.0) H 03/19/23 05:14 Neut # (Auto) 8.8 x10^3/uL (2.2-4.8) H 03/19/23 05:14 Lymph # (Auto) 2.8 X10^3/uL (1.3-2.9) 03/19/23 05:14 [place] # (Auto) 1.0 x10^3/uL (0.3-0.8) H 03/19/23 05:14 Eos # (Auto) 0.6 x10^3/uL (0.0-0.2) H 03/19/23 05:14 Baso # (Auto) 0.2 X10^3/uL (0.0-0.1) H 03/19/23 05:14 Absolute Nucleated RBC 0.1 /100WBC 03/19/23 05:14 Sodium 136 mmol/L (136-145) 03/19/23 05:14 Corrected Sodium TNP 03/19/23 05:14 Potassium 3.7 mmol/L (3.5-5.1) 03/19/23 05:14 Chloride 100 mmol/L (98-107) 03/19/23 05:14 Carbon Dioxide 33.0 mmol/L (21-32) H 03/19/23 05:14 BUN 15 mg/dL (7-18) 03/19/23 05:14 Creatinine 1.87 mg/dL (0.70-1.30) H 03/19/23 05:14 Est GFR (MDRD) Af Amer 46 (>60) L 03/19/23 05:14 Est GFR (MDRD) Non-Af 38 (>60) L 03/19/23 05:14 Glucose 108 mg/dL (65-99) H 03/19/23 05:14 Calcium 13.2 mg/dL (8.5-10.1) H* 03/19/23 05:14 Corrected Calcium 14.4 mg/dL (8.5-10.1) H 03/19/23 05:14 Magnesium 1.8 mg/dL (2.0-2.9) L 03/19/23 05:14 Total Bilirubin 0.40 mg/dL (0.2-1.0) 03/19/23 05:14 AST 39 Units/L (15-37) H 03/19/23 05:14 ALT 40 Units/L (12-78) 03/19/23 05:14 Alkaline Phosphatase 103 Units/L (46-116) 03/19/23 05:14 Troponin I High Sens 7.0 ng/L (4.0-60.0) 03/17/23 15:10 Total Protein 6.2 g/dL (6.4-8.2) L 03/19/23 05:14 Albumin 2.5 g/dL (3.4-5.0) L 03/19/23 05:14 Globulin 3.7 g/dL (2.5-4.5) 03/19/23 05:14 Albumin/Globulin Ratio 0.7 Ratio (1.1-2.1) L 03/19/23 05:14 Lipase 99 Units/L (73-393) 03/17/23 15:10 Total PSA 1.32 ng/mL (0.13-4.0) 03/17/23 16:51 TSH 3rd Generation 0.755 uIU/mL (0.358-3.74) 03/17/23 15:10 Specimen Type Clean catch urine 03/17/23 15:46 Urine Color Yellow (YELLOW) 03/17/23 15:46 Urine Appearance Hazy (CLEAR) 03/17/23 15:46 Urine pH 6.0 (5.0 - 8.0) 03/17/23 15:46 Ur Specific [place] 1.020 (1.000-1.030) 03/17/23 15:46 Urine Protein 1+ (NEGATIVE) 03/17/23 15:46 Urine Glucose (UA) Negative (NEGATIVE) 03/17/23 15:46 Urine Ketones Negative (NEGATIVE) 03/17/23 15:46 Urine Blood Negative (NEGATIVE) 03/17/23 15:46 Urine Nitrite Negative (NEGATIVE) 03/17/23 15:46 Urine Bilirubin Negative (NEGATIVE) 03/17/23 15:46 Urine Urobilinogen Normal (NORMAL) 03/17/23 15:46 Ur Leukocyte Esterase Negative (NEGATIVE) 03/17/23 15:46 Urine RBC None seen /HPF (0-3) 03/17/23 15:46 Urine WBC 0-2 /HPF (0-5) 03/17/23 15:46 Ur Squamous Epith Cells Few /HPF (NEGATIVE) 03/17/23 15:46 Amorphous Sediment 2+ /HPF (NEGATIVE) 03/17/23 15:46 Urine Bacteria Trace /HPF (NEGATIVE) 03/17/23 15:46 Hyaline Casts Few /LPF (NEGATIVE) 03/17/23 15:46 Urine Mucus Few /HPF (NEGATIVE) 03/17/23 15:46 Ur Culture Indicated? No/not indicated 03/17/23 15:46 - Plan (1) Mass of right lung Status: Acute Plan: ADMIT, D5NS AT 150 ML/HR, PEPCID 20MG IV Q12H, PROTONIX 40MG IV BID, AND A NICOTINE PATCH. WE WILL RESUME HIS HOME MEDICATIONS OF GABAPENTIN, LORAZEPAM, ROXICODONE, AND FLOMAX. OBTAIN CHEST CT WITH CONTAST, CEA LEVEL, IONIZED CALCIUM, PTH INTACT, UPEP, SPEP, AND PROTEIN ELECTROPHORESIS (2) Dehydration Status: Acute (3) Hypercalcemia Status: Acute (4) Hypokalemia Status: Acute (5) Hypoalbuminemia Status: Acute (6) Generalized weakness Status: Acute (7) Weight loss Status: Acute (8) BPH (benign prostatic hyperplasia) Status: Chronic Qualifiers: Lower urinary tract symptom presence: unspecified whether lower urinary tract symptoms present Qualified Code(s): N40.0 - Benign prostatic hyperplasia without lower urinary tract symptoms (9) GERD (gastroesophageal reflux disease) Status: Chronic Qualifiers: Esophagitis presence: esophagitis presence not specified Qualified Code(s): K21.9 - Gastro-esophageal reflux disease without esophagitis (10) Generalized anxiety disorder Status: Chronic (11) Gastroparesis Status: Chronic
[2023-03-19] MEDS: MILK OF MAGNESIA PO SCH ×2 (15:34→20:33)
[2023-03-19] MEDS: COLACE CAP 100 MG PO SCH ×2 (15:34→20:33)
[2023-03-19] MEDS: MIRALAX POWDER (1 DOSE 17 G) PO SCH (15:35)
[2023-03-19] MEDS ORDERED: ZOFRAN INJ 4 MG VIAL IVP PRN (22:48)
[2023-03-20] MEDS: D5 NS 1,000 ML IV 1,000 ML IV SCH (00:52)
[2023-03-20] MEDS: NEURONTIN CAP 300 MG PO SCH ×3 (05:13→21:39)
[2023-03-20 05:51] LABS: BASOPHILS # (AUTO) 0.1 X10^3/uL (0.0-0.1); BASOPHILS % (AUTO) 1.2 % (0.2-1.0); EOSINOPHILS # (AUTO) 0.2 x10^3/uL (0.0-0.2); EOSINOPHILS % (AUTO) 1.7 % (0.9-2.9); HEMATOCRIT 43.9 % (42.0-54.0); HEMOGLOBIN 14.9 g/dL (13.5-18.0); LYMPHOCYTES # (AUTO) 0.5 X10^3/uL (1.3-2.9); LYMPHOCYTES % (AUTO) 5.2 % (21.0-51.0); MEAN CORPUSCULAR HEMOGLOBIN 27.7 pg (27.0-34.0); MEAN CORPUSCULAR VOLUME 81.5 fL (80.0-100.0); MEAN PLATELET VOLUME 9.8 fL (7.4-11.0); MONOCYTES # (AUTO) 0.5 x10^3/uL (0.3-0.8); MONOCYTES % (AUTO) 4.6 % (0.0-13.0); NEUTROPHILS # (AUTO) 9.1 x10^3/uL (2.2-4.8); NEUTROPHILS % (AUTO) 87.3 % (42.0-75.0); PLATELET COUNT 304 X10^3/uL (150.0-450.0); RED BLOOD COUNT 5.39 X10^6/uL (4.7-6.0); RED CELL DISTRIBUTION WIDTH 14.4 % (11.6-16.5); WHITE BLOOD COUNT 10.4 X10^3/uL (3.6-10.0)
[2023-03-20 06:01] LABS: ALBUMIN 2.8 g/dL (3.4-5.0); CARBON DIOXIDE 30.3 mmol/L (21-32); COR CA(FOR HYPOALB) 13.7 mg/dL (8.5-10.1); CREATININE 1.87 mg/dL (0.70-1.30); TOTAL PROTEIN 6.8 g/dL (6.4-8.2)
[2023-03-20 06:10] LABS: CALCIUM 12.7 mg/dL (8.5-10.1)
[2023-03-20] MEDS ORDERED: CONSULT PHARMACY - POTASSIUM & MAGNESIUM XX SCH ×2 (07:00)
[2023-03-20] MEDS: PEPCID 20 MG VIAL 20 MG in NS 50 ML IV 50 ML IV SCH (08:26)
[2023-03-20] MEDS: LOVENOX INJ 40 MG SYR SC SCH (08:27)
[2023-03-20] MEDS: NICOTINE PATCH TD SCH (08:27)
[2023-03-20] MEDS: PROTONIX INJ 40 MG VIAL IVP SCH ×2 (08:27→20:27)
[2023-03-20] MEDS: COLACE CAP 100 MG PO SCH ×2 (08:39→20:30)
[2023-03-20] MEDS: MILK OF MAGNESIA PO SCH ×4 (08:40→20:32)
[2023-03-20] MEDS: FLOMAX PO SCH (08:40)
[2023-03-20] MEDS: MAG-OX TAB PO SCH ×2 (08:41→20:33)
[2023-03-20] MEDS: MIRALAX POWDER (1 DOSE 17 G) PO SCH (08:41)
[2023-03-20] MEDS ORDERED: K-DUR TAB 20 MEQ PO SCH (09:00)
[2023-03-20] MEDS: D5 NS + KCL 20 MEQ/L 1,000 ML IV SCH ×4 (10:45→20:33)
[2023-03-20] MEDS ORDERED: MULTIHANCE INJ VIAL ONE (12:31)
--- NOTE | 2023-03-20 13:20 | PCM.PROG ---
Progress Note - Progress Note for Day of Date of Exam: 03/20/23 - Subjective Subjective: IS CURRENTLY INPATIENT STATUS. HE WAS ADMITTED FOR FURTHER EVALUATION AND TREATMENT OF A MASS OF THE RIGHT LUNG, DEHYDRATION, HYPERCALCEMIA, HYPOKALEMIA, HYPOALBUMINEMIA, GENERALIZED WEAKNESS, AND WEIGHT LOSS. HE HAS A PMH OF COPD, CAD, DYSLIPIDEMIA, GASTROPARESIS, CABG. TODAY, HE IS LYING IN BED WITH EYES CLOSED ON MORNING ROUNDS. HE DOES AWAKEN TO VERBAL STIMULI, BUT IS DISORIENTED. HE CONTINUES TO COMPLAIN OF WEAKNESS, DECREASED APPETITE, RIGHT SHOULDER PAIN, AND CONSTIPATION THIS MORNING. HE DENIES SIGNIFICANT IMPROVEMENT IN SYMPTOMS SINCE ADMISSION. ON EXAMINATION, HEART IS REGULAR IN RATE AND RHYTHM. BILATERAL LUNGS ARE NOTED WITH DIMINISHED LUNG SOUNDS THROUGHOUT. ABDOMEN IS ROUND, SOFT, AND NON-TENDER WITH HYPERACTIVE BOWEL SOUNDS NOTED IN ALL QUADRANTS. GOOD MOVEMENT NOTED TO UPPER AND LOWER EXTREMITIES WITH NO EDEMA NOTED. HIS VITALS THIS MORNING ARE: 98.6-90-20 -91%-127/58. LABS WERE OBTAINED. WBC 10.4, RBC 5.39, HGB 14.9, HCT 43.9, PLT COUNT 304, SODIUM 134, POTASSIUM 3.0, CHLORIDE 97, BUN 14, CREATININE 1.87, GLUCOSE 127, CALCIUM 12.7, TOTAL BILI 0.60, AST 35, ALT 44, ALK PHOS 123, TOTAL PROTIEN 6.8, ALBUMIN 2.8. A CHEST CT WITH CONTRAST WAS OBTAINED YESTERDAY AND REVEALED: 5.6 x 3.9 x 4.8 cm mass is seen in the right hilum and right lower lobe of the lungs and is highly suspicious for lung cancer. Less likely this is metastatic disease. Malignant-appearing mediastinal. lymphadenopathy is seen. Probable small metastasis is seen in the left adrenal gland and there are several. Renal nodular density that are suspicious for metastatic disease. A 1.5 cm mass associated with the medial aspect of the right kidney could be of renal origin but may be metastatic disease. Suggest further evaluation of the lung mass with biopsy. Contrast enhanced MRI of the abdomen is recommended to evaluate the adrenal and renal lesions. HE IS CURRENTLY RECEIVING D5NS WITH 20MEQ KCL AT 150 ML/HR, PEPCID 20MG IV Q12H, PROTONIX 40MG IV BID, AND A NICOTINE PATCH. WE WILL RESUME HIS HOME MEDICATIONS OF GABAPENTIN, LORAZEPAM, ROXICODONE, AND FLOMAX. WE WILL OBTAIN A MRI OF THE ABDOMEN WITH CONTRAST THIS MORNING TO GET A BETTER LOOK AT THE ADRENAL AND RENAL LESIONS. OTHERWISE, WE WILL CONTINUE WITH CURRENT PLAN OF CARE TODAY. HE WILL NEED AN ONCOLOGY REFERRAL FOLLOWING DISCHARGE. CEA, IONIZED CALCIUM, PTH INTACT, UPEP, SPEP, AND PROTEIN ELECTROPHORESIS LEVELS ARE PENDING. WE WILL FOLLOW UP WITH AM LABS AND CONTINUE TO MONITOR. TIME SPENT ON CLINICAL ASSESSMENT, REVIEWING LABS AND IMAGING, DECISION MAKING, AND DOCUMENTATION GREATER THAN 45 MINUTES. - Past Medical Family Social History Past Med/Fam/Surg Hx: No changes since H&P Allergies: Allergies No Known Allergies Allergy (Verified 03/17/23 14:45) - Review of Systems ROS: No change since H&P - Vital Signs and I&O's Vital Signs: Vital Signs Temperature 99.0 F Temperature 98.6 F Pulse Rate [Left Radial] 78 Pulse Rate [Left Radial] 90 Respiratory Rate 20 Respiratory Rate 20 Blood Pressure [Left Arm] 119/59 Blood Pressure [Left Arm] 127/58 O2 Sat by Pulse Oximetry 96 O2 Sat by Pulse Oximetry 91 Intake and Output: Intake & Output 03/18/23 03/19/23 03/20/23 03/21/23 11:59 11:59 11:59 11:59 Intake Total 1700 / 1700 4722 / 4722 2618 / 2618 Balance 1700 / 1700 4722 / 4722 2618 / 2618 - Physical Exam Oriented: Normal Eyes: Normal Ear: Normal Nose: Normal Throat: Normal Respiratory: Generalized, Diminished Cardiovascular: Normal : Normal Auscultation: Bowel Sounds: Increased Palpation: Normal Tenderness: Normal Skin: Decreased Turgur Musculoskeletal: Right, Shoulder, Tender Psychiatric: Normal Mood Description: Calm Affect: Normal Speech Pattern: Clear, Appropriate - Laboratory and Diagnostics Result Diagrams: 03/20/23 05:00 03/20/23 05:00 Labs: Laboratory WBC 10.4 X10^3/uL (3.6-10.0) H 03/20/23 05:00 RBC 5.39 X10^6/uL (4.7-6.0) 03/20/23 05:00 Hgb 14.9 g/dL (13.5-18.0) 03/20/23 05:00 Hct 43.9 % (42.0-54.0) 03/20/23 05:00 MCV 81.5 fL (80.0-100.0) 03/20/23 05:00 MCH 27.7 pg (27.0-34.0) 03/20/23 05:00 MCHC 34.0 g/dL (33.0-35.0) 03/20/23 05:00 RDW 14.4 % (11.6-16.5) 03/20/23 05:00 Plt Count 304 X10^3/uL (150.0-450.0) 03/20/23 05:00 MPV 9.8 fL (7.4-11.0) 03/20/23 05:00 Neut % (Auto) 87.3 % (42.0-75.0) H 03/20/23 05:00 Lymph % (Auto) 5.2 % (21.0-51.0) L 03/20/23 05:00 [place] % (Auto) 4.6 % (0.0-13.0) 03/20/23 05:00 Eos % (Auto) 1.7 % (0.9-2.9) 03/20/23 05:00 Baso % (Auto) 1.2 % (0.2-1.0) H 03/20/23 05:00 Neut # (Auto) 9.1 x10^3/uL (2.2-4.8) H 03/20/23 05:00 Lymph # (Auto) 0.5 X10^3/uL (1.3-2.9) L 03/20/23 05:00 [place] # (Auto) 0.5 x10^3/uL (0.3-0.8) 03/20/23 05:00 Eos # (Auto) 0.2 x10^3/uL (0.0-0.2) 03/20/23 05:00 Baso # (Auto) 0.1 X10^3/uL (0.0-0.1) 03/20/23 05:00 Absolute Nucleated RBC 0.1 /100WBC 03/20/23 05:00 Sodium 134 mmol/L (136-145) L 03/20/23 05:00 Corrected Sodium 135 mmol/L (136-145) L 03/20/23 05:00 Potassium 3.0 mmol/L (3.5-5.1) L 03/20/23 05:00 Chloride 97 mmol/L (98-107) L 03/20/23 05:00 Carbon Dioxide 30.3 mmol/L (21-32) 03/20/23 05:00 BUN 14 mg/dL (7-18) 03/20/23 05:00 Creatinine 1.87 mg/dL (0.70-1.30) H 03/20/23 05:00 Est GFR (MDRD) Af Amer 46 (>60) L 03/20/23 05:00 Est GFR (MDRD) Non-Af 38 (>60) L 03/20/23 05:00 Glucose 127 mg/dL (65-99) H 03/20/23 05:00 Calcium 12.7 mg/dL (8.5-10.1) H* 03/20/23 05:00 Corrected Calcium 13.7 mg/dL (8.5-10.1) H 03/20/23 05:00 Ionized Calcium Feli 1.87 mmol/L (1.09-1.30) H* 03/17/23 16:51 Ionized Calcium pH 7.4 1.95 mmol/L (1.09-1.30) H* 03/17/23 16:51 Magnesium 2.2 mg/dL (2.0-2.9) 03/20/23 05:00 Total Bilirubin 0.60 mg/dL (0.2-1.0) 03/20/23 05:00 AST 35 Units/L (15-37) 03/20/23 05:00 ALT 44 Units/L (12-78) 03/20/23 05:00 Alkaline Phosphatase 123 Units/L (46-116) H 03/20/23 05:00 Troponin I High Sens 7.0 ng/L (4.0-60.0) 03/17/23 15:10 Total Protein 6.8 g/dL (6.4-8.2) 03/20/23 05:00 Albumin 2.8 g/dL (3.4-5.0) L 03/20/23 05:00 Globulin 4.0 g/dL (2.5-4.5) 03/20/23 05:00 Albumin/Globulin Ratio 0.7 Ratio (1.1-2.1) L 03/20/23 05:00 Lipase 99 Units/L (73-393) 03/17/23 15:10 Carcinoembryonic Ag 66.6 ng/mL (<=3.8) H 03/17/23 16:51 Total PSA 1.32 ng/mL (0.13-4.0) 03/17/23 16:51 TSH 3rd Generation 0.755 uIU/mL (0.358-3.74) 03/17/23 15:10 Specimen Type Clean catch urine 03/17/23 15:46 Urine Color Yellow (YELLOW) 03/17/23 15:46 Urine Appearance Hazy (CLEAR) 03/17/23 15:46 Urine pH 6.0 (5.0 - 8.0) 03/17/23 15:46 Ur Specific [place] 1.020 (1.000-1.030) 03/17/23 15:46 Urine Protein 1+ (NEGATIVE) 03/17/23 15:46 Urine Glucose (UA) Negative (NEGATIVE) 03/17/23 15:46 Urine Ketones Negative (NEGATIVE) 03/17/23 15:46 Urine Blood Negative (NEGATIVE) 03/17/23 15:46 Urine Nitrite Negative (NEGATIVE) 03/17/23 15:46 Urine Bilirubin Negative (NEGATIVE) 03/17/23 15:46 Urine Urobilinogen Normal (NORMAL) 03/17/23 15:46 Ur Leukocyte Esterase Negative (NEGATIVE) 03/17/23 15:46 Urine RBC None seen /HPF (0-3) 03/17/23 15:46 Urine WBC 0-2 /HPF (0-5) 03/17/23 15:46 Ur Squamous Epith Cells Few /HPF (NEGATIVE) 03/17/23 15:46 Amorphous Sediment 2+ /HPF (NEGATIVE) 03/17/23 15:46 Urine Bacteria Trace /HPF (NEGATIVE) 03/17/23 15:46 Hyaline Casts Few /LPF (NEGATIVE) 03/17/23 15:46 Urine Mucus Few /HPF (NEGATIVE) 03/17/23 15:46 Ur Culture Indicated? No/not indicated 03/17/23 15:46 - Plan (1) Mass of right lung Status: Acute Plan: D5NS WITH 20MEQ KCL AT ML/HR, PEPCID 20MG IV Q12H, PROTONIX 40MG IV BID, AND A NICOTINE PATCH. WE WILL RESUME HIS HOME MEDICATIONS OF GABAPENTIN, LORAZEPAM, ROXICODONE, AND FLOMAX. OBTAIN CHEST CT WITH CONTAST, CEA LEVEL, IONIZED CALCIUM, PTH INTACT, UPEP, SPEP, AND PROTEIN ELECTROPHORESIS (2) Dehydration Status: Acute (3) Hypercalcemia Status: Acute (4) Hypokalemia Status: Acute (5) Hypoalbuminemia Status: Acute (6) Generalized weakness Status: Acute (7) Weight loss Status: Acute (8) BPH (benign prostatic hyperplasia) Status: Chronic Qualifiers: Lower urinary tract symptom presence: unspecified whether lower urinary tract symptoms present Qualified Code(s): N40.0 - Benign prostatic hyperplasia without lower urinary tract symptoms (9) GERD (gastroesophageal reflux disease) Status: Chronic Qualifiers: Esophagitis presence: esophagitis presence not specified Qualified Code(s): K21.9 - Gastro-esophageal reflux disease without esophagitis (10) Generalized anxiety disorder Status: Chronic (11) Gastroparesis Status: Chronic
[2023-03-20] MEDS: ATIVAN TAB 1 MG PO PRN (20:30)
[2023-03-21] MEDS: D5 NS + KCL 20 MEQ/L 1,000 ML IV SCH ×6 (00:15→21:12)
[2023-03-21] MEDS: NEURONTIN CAP 300 MG PO SCH ×3 (05:18→21:02)
[2023-03-21 06:33] LABS: BASOPHILS # (AUTO) 0.2 X10^3/uL (0.0-0.1); BASOPHILS % (AUTO) 2.4 % (0.2-1.0); EOSINOPHILS # (AUTO) 0.2 x10^3/uL (0.0-0.2); EOSINOPHILS % (AUTO) 2.3 % (0.9-2.9); HEMATOCRIT 42.6 % (42.0-54.0); HEMOGLOBIN 14.3 g/dL (13.5-18.0); LYMPHOCYTES # (AUTO) 1.4 X10^3/uL (1.3-2.9); LYMPHOCYTES % (AUTO) 14.6 % (21.0-51.0); MEAN CORPUSCULAR HEMOGLOBIN 27.1 pg (27.0-34.0); MEAN CORPUSCULAR HGB CONC 33.6 g/dL (33.0-35.0); MEAN CORPUSCULAR VOLUME 80.6 fL (80.0-100.0); MEAN PLATELET VOLUME 9.6 fL (7.4-11.0); MONOCYTES # (AUTO) 0.4 x10^3/uL (0.3-0.8); MONOCYTES % (AUTO) 4.1 % (0.0-13.0); NEUTROPHILS # (AUTO) 7.4 x10^3/uL (2.2-4.8); NEUTROPHILS % (AUTO) 76.6 % (42.0-75.0); PLATELET COUNT 263 X10^3/uL (150.0-450.0); RED BLOOD COUNT 5.28 X10^6/uL (4.7-6.0); RED CELL DISTRIBUTION WIDTH 14.1 % (11.6-16.5); WHITE BLOOD COUNT 9.6 X10^3/uL (3.6-10.0)
[2023-03-21 06:54] LABS: ALBUMIN 2.4 g/dL (3.4-5.0); CALCIUM 10.5 mg/dL (8.5-10.1); CARBON DIOXIDE 26.1 mmol/L (21-32); COR CA(FOR HYPOALB) 11.8 mg/dL (8.5-10.1); CREATININE 1.71 mg/dL (0.70-1.30); MAGNESIUM 2.6 mg/dL (2.0-2.9); POTASSIUM 3.2 mmol/L (3.5-5.1); TOTAL PROTEIN 6.1 g/dL (6.4-8.2)
[2023-03-21] MEDS: MILK OF MAGNESIA PO SCH ×4 (08:45→21:03)
[2023-03-21] MEDS: COLACE CAP 100 MG PO SCH ×2 (08:45→21:02)
[2023-03-21] MEDS: FLOMAX PO SCH (08:45)
[2023-03-21] MEDS: LOVENOX INJ 40 MG SYR SC SCH (08:46)
[2023-03-21] MEDS: NICOTINE PATCH TD SCH (08:46)
[2023-03-21] MEDS: MIRALAX POWDER (1 DOSE 17 G) PO SCH (08:46)
[2023-03-21] MEDS: MAG-OX TAB PO SCH (08:46)
[2023-03-21] MEDS: PEPCID 20 MG VIAL 20 MG in NS 50 ML IV 50 ML IV SCH (08:47)
[2023-03-21] MEDS: PROTONIX INJ 40 MG VIAL IVP SCH ×2 (08:47→21:05)
[2023-03-21] MEDS ORDERED: K-DUR TAB 20 MEQ PO SCH (10:00)
[2023-03-21] MEDS ORDERED: CONSULT PHARMACY - POTASSIUM & MAGNESIUM XX SCH (10:00)
[2023-03-21 10:21] LABS: PARATHYROID HORMONE INT 9 pg/mL (15-65)
[2023-03-21 15:33] LABS: ALPHA-2 (SPEP) 1.12 g/dL (0.48-1.05); GAMMA (SPEP) 0.83 g/dL (0.62-1.51)
[2023-03-21] MEDS: ROXICODONE TAB 15 MG PO PRN (17:33)
[2023-03-21] MEDS: ATIVAN TAB 1 MG PO PRN (21:02)
[2023-03-22] MEDS: D5 NS + KCL 20 MEQ/L 1,000 ML IV SCH ×3 (02:00→08:53)
[2023-03-22] MEDS: NEURONTIN CAP 300 MG PO SCH ×3 (05:23→21:00)
[2023-03-22] MEDS: ROXICODONE TAB 15 MG PO PRN ×2 (05:29→15:27)
[2023-03-22 06:13] LABS: BASOPHILS # (AUTO) 0.1 X10^3/uL (0.0-0.1); EOSINOPHILS # (AUTO) 0.4 x10^3/uL (0.0-0.2); EOSINOPHILS % (AUTO) 2.7 % (0.9-2.9); HEMATOCRIT 41.4 % (42.0-54.0); HEMOGLOBIN 13.8 g/dL (13.5-18.0); LYMPHOCYTES # (AUTO) 2.2 X10^3/uL (1.3-2.9); LYMPHOCYTES % (AUTO) 16.6 % (21.0-51.0); MEAN CORPUSCULAR HGB CONC 33.3 g/dL (33.0-35.0); MEAN CORPUSCULAR VOLUME 81.2 fL (80.0-100.0); MEAN PLATELET VOLUME 9.3 fL (7.4-11.0); MONOCYTES # (AUTO) 0.9 x10^3/uL (0.3-0.8); NEUTROPHILS # (AUTO) 9.6 x10^3/uL (2.2-4.8); NEUTROPHILS % (AUTO) 72.7 % (42.0-75.0); PLATELET COUNT 269 X10^3/uL (150.0-450.0); RED BLOOD COUNT 5.09 X10^6/uL (4.7-6.0); RED CELL DISTRIBUTION WIDTH 14.2 % (11.6-16.5); WHITE BLOOD COUNT 13.1 X10^3/uL (3.6-10.0)
[2023-03-22 06:24] LABS: ALANINE AMINOTRANSFERASE 30 Units/L (12-78); ALBUMIN 2.4 g/dL (3.4-5.0); ALKALINE PHOSPHATASE 101 Units/L (46-116); ASPARTATE AMINO TRANSFERASE 25 Units/L (15-37); BLOOD UREA NITROGEN 9 mg/dL (7-18); CARBON DIOXIDE 28.7 mmol/L (21-32); CHLORIDE 102 mmol/L (98-107); COR CA(FOR HYPOALB) 10.3 mg/dL (8.5-10.1); COR NA(FOR HYPERGLY) 135 mmol/L (136-145); CREATININE 1.41 mg/dL (0.70-1.30); GLUCOSE 119 mg/dL (65-99); POTASSIUM 3.6 mmol/L (3.5-5.1); SODIUM 135 mmol/L (136-145); eGFR NON BLACK RACES 53 (>60)
[2023-03-22] MEDS ORDERED: CONSULT PHARMACY - POTASSIUM & MAGNESIUM XX SCH (07:00)
[2023-03-22] MEDS: NICOTINE PATCH TD SCH (08:46)
[2023-03-22] MEDS: LOVENOX INJ 40 MG SYR SC SCH (08:47)
[2023-03-22] MEDS: PEPCID 20 MG VIAL 20 MG in NS 50 ML IV 50 ML IV SCH (08:47)
[2023-03-22] MEDS: FLOMAX PO SCH (08:48)
[2023-03-22] MEDS: PROTONIX INJ 40 MG VIAL IVP SCH ×2 (08:49→20:59)
[2023-03-22] MEDS: MIRALAX POWDER (1 DOSE 17 G) PO SCH (08:53)
[2023-03-22] MEDS: MILK OF MAGNESIA PO SCH ×4 (08:54→21:03)
[2023-03-22] MEDS: COLACE CAP 100 MG PO SCH ×2 (08:54→21:02)
[2023-03-22] MEDS ORDERED: K-DUR TAB 20 MEQ PO SCH (09:00)
[2023-03-22] MEDS: MAG-OX TAB PO SCH (10:01)
[2023-03-22 13:11] VITALS: BMI 30.1
[2023-03-22] MEDS: NS 1,000 ML IV 1,000 ML IV SCH ×2 (15:25→21:01)
[2023-03-22] MEDS: ATIVAN TAB 1 MG PO PRN (15:29)
[2023-03-23] MEDS: ROXICODONE TAB 15 MG PO PRN ×2 (00:48→09:27)
[2023-03-23] MEDS: ATIVAN TAB 1 MG PO PRN ×2 (00:51→09:47)
[2023-03-23] MEDS: NEURONTIN CAP 300 MG PO SCH ×2 (05:07→14:45)
[2023-03-23] MEDS: NS 1,000 ML IV 1,000 ML IV SCH ×2 (05:08→14:44)
[2023-03-23 06:21] LABS: BASOPHILS # (AUTO) 0.1 X10^3/uL (0.0-0.1); BASOPHILS % (AUTO) 0.8 % (0.2-1.0); EOSINOPHILS # (AUTO) 0.5 x10^3/uL (0.0-0.2); EOSINOPHILS % (AUTO) 3.8 % (0.9-2.9); HEMATOCRIT 39.2 % (42.0-54.0); HEMOGLOBIN 12.9 g/dL (13.5-18.0); LYMPHOCYTES # (AUTO) 2.4 X10^3/uL (1.3-2.9); LYMPHOCYTES % (AUTO) 19.3 % (21.0-51.0); MEAN CORPUSCULAR HEMOGLOBIN 26.7 pg (27.0-34.0); MEAN CORPUSCULAR HGB CONC 32.9 g/dL (33.0-35.0); MEAN CORPUSCULAR VOLUME 81.4 fL (80.0-100.0); MEAN PLATELET VOLUME 9.6 fL (7.4-11.0); MONOCYTES # (AUTO) 1.1 x10^3/uL (0.3-0.8); MONOCYTES % (AUTO) 8.9 % (0.0-13.0); NEUTROPHILS # (AUTO) 8.2 x10^3/uL (2.2-4.8); NEUTROPHILS % (AUTO) 67.2 % (42.0-75.0); PLATELET COUNT 274 X10^3/uL (150.0-450.0); RED BLOOD COUNT 4.82 X10^6/uL (4.7-6.0); RED CELL DISTRIBUTION WIDTH 14.1 % (11.6-16.5); WHITE BLOOD COUNT 12.2 X10^3/uL (3.6-10.0)
[2023-03-23 06:26] LABS: ALANINE AMINOTRANSFERASE 21 Units/L (12-78); ALBUMIN 2.1 g/dL (3.4-5.0); ALKALINE PHOSPHATASE 89 Units/L (46-116); ASPARTATE AMINO TRANSFERASE 17 Units/L (15-37); BLOOD UREA NITROGEN 9 mg/dL (7-18); CALCIUM 7.9 mg/dL (8.5-10.1); CARBON DIOXIDE 25.9 mmol/L (21-32); CHLORIDE 102 mmol/L (98-107); COR CA(FOR HYPOALB) 9.4 mg/dL (8.5-10.1); CREATININE 1.37 mg/dL (0.70-1.30); GLUCOSE 108 mg/dL (65-99); POTASSIUM 3.9 mmol/L (3.5-5.1); SODIUM 134 mmol/L (136-145); TOTAL PROTEIN 5.4 g/dL (6.4-8.2); eGFR NON BLACK RACES 55 (>60)
[2023-03-23 08:03] VITALS: RESP 20
[2023-03-23] MEDS: MILK OF MAGNESIA PO SCH ×2 (09:08→14:44)
[2023-03-23] MEDS: COLACE CAP 100 MG PO SCH (09:08)
--- NOTE | 2023-03-23 09:15 | MRI ---
HISTORYRENAL AND ADRENAL MASSESSTUDYMRI ABDOMEN without and with IV contrastCOMPARISONCT 03/19/2023TECHNIQUEMRI of the abdomenwithout and with IV contrast is performed using standard sequences in multiple planes. 20 cc MultiHance IV contrast.FINDINGSRight adrenal gland appears normal. There is a 1.3 cm nodule in the left adrenal gland that has no loss of signal on out of phase imaging. It enhances following contrast administration and is worrisome for metastatic disease.Multiple renal lesions are seen. The largest of these lesions are benign simple cysts. However, abnormal appearing lesion medial to the right kidney has heterogeneous signal and enhances. It is probably of renal origin and may be an exophytic 2.0 x 1.7 cm renal cell carcinoma. A 2nd exophytic lesion in the mid right kidney laterally has thick rim enhancement. It only measures 1.0 cm. It is difficult to determine internal enhancement but may have delayed internal enhancement. It could be malignancy, also. The other renal foci appear to be proteinaceous/hemorrhagic cysts.There is a probable malignant lymph node anterior to the left psoas muscle in the lower abdomen. It measures 1.0 x 1.2 cm. There is normal variant diminished enhancement in the bare area of the liver. No suspicious hepatic lesion is seen. There is another probable retroperitoneal metastasis is inferior and lateral to the left kidney that measures 9 mm greatest dimension. Probable mild diffuse constipation. There is mild cholelithiasis without suggestion of cholecystitis or biliary ductal dilation.IMPRESSION1.3 cm left adrenal nodule is concerning for metastatic disease.2 of the right renal lesions measuring 1.0 cm and 2.0 cm are worrisome for possible renal cell carcinoma. Other lesions in the right kidney and left kidney appear more likely benign.However, there is a probable malignant lymph node anterior to the left psoas muscle near the pelvic inlet and another retroperitoneal metastasis measuring 9 mm inferior to the left kidney.Electronically signed by: Kenneth Smith (Mar 23, 2023 09:14:18)
[2023-03-23] MEDS: MAG-OX TAB PO SCH (09:27)
[2023-03-23] MEDS: PROTONIX INJ 40 MG VIAL IVP SCH (09:28)
[2023-03-23] MEDS: NICOTINE PATCH TD SCH (09:28)
[2023-03-23] MEDS: LOVENOX INJ 40 MG SYR SC SCH (09:29)
[2023-03-23] MEDS: PEPCID 20 MG VIAL 20 MG in NS 50 ML IV 50 ML IV SCH (09:30)
[2023-03-23] MEDS: FLOMAX PO SCH (09:47)
[2023-03-23 12:13] VITALS: BP 112/56; PULSE 67; TEMP 97.9; O2SAT 98
[2023-03-23] MEDS: MIRALAX POWDER (1 DOSE 17 G) PO SCH (14:41)
== END 2023-03-23 14:35 | disposition home health service (06) | DRG 182 ==
LOC: ER 13:46 → MERGE 16:30 → MED/SURG 16:30 → UNDODISIN 17:05 → MED/SURG 17:06
PROVIDERS: ADMIT Internal Medicine; ATTEND Internal Medicine
DX: E83.42 Hypomagnesemia; K59.00 Constipation, unspecified; W19.XXXA Unspecified fall, initial encounter; R55 Syncope and collapse; M25.511 Pain in right shoulder; F41.9 Anxiety disorder, unspecified; Z91.81 History of falling; K31.84 Gastroparesis; Y92.231 Patient bathroom in hospital as the place of occurrence of the external cause; C34.90 Malignant neoplasm of unspecified part of unspecified bronchus or lung; Z87.09 Personal history of other diseases of the respiratory system; R26.81 Unsteadiness on feet; R63.4 Abnormal weight loss; E87.6 Hypokalemia; Z20.822 Contact with and (suspected) exposure to COVID-19; Z95.1 Presence of aortocoronary bypass graft; E88.09 Other disorders of plasma-protein metabolism, not elsewhere classified; N40.0 Benign prostatic hyperplasia without lower urinary tract symptoms; E86.0 Dehydration; E78.49 Other hyperlipidemia; R07.9 Chest pain, unspecified; Z72.0 Tobacco use; R53.1 Weakness; N28.89 Other specified disorders of kidney and ureter

== ENCOUNTER 2023-04-01 09:50 | Inpatient (IN) ==
[2023-04-01 10:01] VITALS: BMI 25.4
--- NOTE | 2023-04-01 11:57 | DR.GENAD ---
HPI Time Seen Time Seen by Provider: 04/01/23 10:47 PCP Primary Care Physician: JESUS Fallon Complaint/Symptoms Chief Complaint Doctors Comments: 67 y/o male presents for evaluation. Seen and admitted here 03/17 for hypercalcemia. W/u showed lung CA to be present. Has had decreased po intake, increasing weakness, since d/c from the hospital. Denies fever, chills, abdominal pain, cough or shortness of breath. Having some muscle pain. + slight nausea, no active vomiting. Has been constipated, but not eating. Chief Complaint:: Since being discharged from our hospital 9 days ago pt has had progressively worsening generalized weakness, decreased appetite, and nausea. Pt states that he is barely able to eat or drink anything. Denies vomiting or fever. Pt does c/o 7 days of generalized bodyaches and states that he hasn't had a BM since he left the hospital but that he does suffer with chronic constipation. COVID-19 Coronavirus risk:travel/contact w/high risk person: No Has patient experienced Coronavirus symptoms: No Nurses notes reviewed Nurses Notes Review: Yes Source History Provided: Patient Mode of Arrival Mode of Arrival: Wheelchair Timing Onset of Chief Complaint: 03/18/23 PMH PMH Past Medical History: Yes Past Medical History: COPD, Coronary Artery Disease and Dyslipidemia Past Medical History Comment: metastatic lung cancer, gastroparesis Past Surgical History: Yes Surgical History: CABG/Valve Surgery Family History History of Family Medical Conditions: Yes Family Medical History: Diabetes Mellitus and Hypertension Social History Does patient currently use any type of tobacco product: Yes Have you used tobacco products in the last 12 months: Yes Type of Tobacco Use: Cigarettes Does any household member use tobacco: No Alcohol Use: None Do you use any recreational Drugs:: No Lives With: Spouse Lives Where: Home Travel Risk Coronavirus risk:travel/contact w/high risk person: No Has patient experienced Coronavirus symptoms: No Infectious screening In the last 2 months have you had wt loss of >10#?: NO Have you had fever, night sweats or hemotysis?: No Have you traveled outside the country in the last 6 months?: No Isolation: Standard ROS Review of Systems Constitutional: Malaise and Weakness Eyes: No Symptoms Reported ENTM: No Symptoms Reported Respiratoy: No Symptoms Reported Cardiovascular: No Symptoms Reported Gastrointestinal/Abdominal: Nausea Genitourinary: No Symptoms Reported Neurological: Weakness Musculoskeletal: Muscle Pain Integumentary: No Symptoms Reported Hematologic/Lymphatic: No Symptoms Reported All Other Systems: Reviewed and Negative PE Vital Signs Vitals: Vital Signs Temperature 98.0 F Pulse Rate 89 Respiratory Rate 18 Blood Pressure 102/58 O2 Sat by Pulse Oximetry 94 General General Appearance: Alert and In No Apparent Distress Eyes Eye exam: PERRL and EOMI ENT ENT Exam: Mucous Membranes Moist Neck Neck Exam: Normal Inspection and Full ROM Respiratory Respiratory Exam: Normal Lung Sounds Bilat; negative Accessory Muscle Use or Respiratory Distress Cardiovascular Cardiovascular Exam: Regular Rate, Normal Rhythm and Normal Heart Sounds Abdominal Exam Abdominal Exam: Normal Inspection, Normal Bowel Sounds and Soft; negative Tenderness Extremities Extremities Exam: Normal Inspection; negative Edema Neurologic Neurological Exam: Alert, Oriented X3 and CN II-XII Intact; negative Motor Sensory Deficit Skin Skin Exam: Warm and Dry COURSE Treatment Treatment: 67 y/o male with recent CA diagnosis, due to see oncology in 1 week. Having poor po intake, generalized weakness. W/u initiated. Pt given IV fluids, IV zofran/protonix. Labs - shows elevated calcium, 13, and low sodium, 130. Pt given additional IV hydration/ Discussed with Dr morris, will admit. ROR Labs Reviewed Laboratory Results Reviewed?: Yes 04/01/23 12:50 04/01/23 12:50 Laboratory: WBC 18.0 X10^3/uL (3.6-10.0) H 04/01/23 12:50 RBC 4.79 X10^6/uL (4.7-6.0) 04/01/23 12:50 Hgb 12.7 g/dL (13.5-18.0) L 04/01/23 12:50 Hct 38.8 % (42.0-54.0) L 04/01/23 12:50 MCV 80.8 fL (80.0-100.0) 04/01/23 12:50 MCH 26.5 pg (27.0-34.0) L 04/01/23 12:50 MCHC 32.8 g/dL (33.0-35.0) L 04/01/23 12:50 RDW 14.6 % (11.6-16.5) 04/01/23 12:50 Plt Count 470 X10^3/uL (150.0-450.0) H 04/01/23 12:50 MPV 8.4 fL (7.4-11.0) 04/01/23 12:50 Neut % (Auto) 81.2 % (42.0-75.0) H 04/01/23 12:50 Lymph % (Auto) 11.6 % (21.0-51.0) L 04/01/23 12:50 [place] % (Auto) 5.3 % (0.0-13.0) 04/01/23 12:50 Eos % (Auto) 0.9 % (0.9-2.9) 04/01/23 12:50 Baso % (Auto) 1.0 % (0.2-1.0) 04/01/23 12:50 Neut # (Auto) 14.7 x10^3/uL (2.2-4.8) H 04/01/23 12:50 Lymph # (Auto) 2.1 X10^3/uL (1.3-2.9) 04/01/23 12:50 [place] # (Auto) 0.9 x10^3/uL (0.3-0.8) H 04/01/23 12:50 Eos # (Auto) 0.2 x10^3/uL (0.0-0.2) 04/01/23 12:50 Baso # (Auto) 0.2 X10^3/uL (0.0-0.1) H 04/01/23 12:50 Absolute Nucleated RBC 0.0 /100WBC 04/01/23 12:50 Sodium 130 mmol/L (136-145) L 04/01/23 12:50 Corrected Sodium 131 mmol/L (136-145) L 04/01/23 12:50 Potassium 5.6 mmol/L (3.5-5.1) H 04/01/23 12:50 Chloride 100 mmol/L (98-107) 04/01/23 12:50 Carbon Dioxide 25.4 mmol/L (21-32) 04/01/23 12:50 BUN 10 mg/dL (7-18) 04/01/23 12:50 Creatinine 1.26 mg/dL (0.70-1.30) 04/01/23 12:50 Est GFR (MDRD) Af Amer > 60 (>60) 04/01/23 12:50 Est GFR (MDRD) Non-Af > 60 (>60) 04/01/23 12:50 Glucose 121 mg/dL (65-99) H 04/01/23 12:50 Calcium 13.0 mg/dL (8.5-10.1) H* 04/01/23 12:50 Corrected Calcium 14.4 mg/dL (8.5-10.1) H 04/01/23 12:50 Total Bilirubin 0.50 mg/dL (0.2-1.0) 04/01/23 12:50 AST 17 Units/L (15-37) 04/01/23 12:50 ALT 17 Units/L (12-78) 04/01/23 12:50 Alkaline Phosphatase 106 Units/L (46-116) 04/01/23 12:50 Total Protein 6.4 g/dL (6.4-8.2) 04/01/23 12:50 Albumin 2.3 g/dL (3.4-5.0) L 04/01/23 12:50 Globulin 4.1 g/dL (2.5-4.5) 04/01/23 12:50 Albumin/Globulin Ratio 0.6 Ratio (1.1-2.1) L 04/01/23 12:50 Lipase 166 Units/L (73-393) 04/01/23 12:50 Specimen Type Clean catch urine 04/01/23 13:41 Urine Color Yellow (YELLOW) 04/01/23 13:41 Urine Appearance Clear (CLEAR) 04/01/23 13:41 Urine pH 6.0 (5.0 - 8.0) 04/01/23 13:41 Ur Specific [place] 1.020 (1.000-1.030) 04/01/23 13:41 Urine Protein 1+ (NEGATIVE) 04/01/23 13:41 Urine Glucose (UA) Negative (NEGATIVE) 04/01/23 13:41 Urine Ketones Negative (NEGATIVE) 04/01/23 13:41 Urine Blood Negative (NEGATIVE) 04/01/23 13:41 Urine Nitrite Negative (NEGATIVE) 04/01/23 13:41 Urine Bilirubin Negative (NEGATIVE) 04/01/23 13:41 Urine Urobilinogen Normal (NORMAL) 04/01/23 13:41 Ur Leukocyte Esterase Negative (NEGATIVE) 04/01/23 13:41 Urine RBC 0-2 /HPF (0-3) 04/01/23 13:41 Urine WBC 0-2 /HPF (0-5) 04/01/23 13:41 Ur Squamous Epith Cells Rare /HPF (NEGATIVE) 04/01/23 13:41 Urine Bacteria Trace /HPF (NEGATIVE) 04/01/23 13:41 Hyaline Casts Rare /LPF (NEGATIVE) 04/01/23 13:41 Ur Culture Indicated? No/not indicated 04/01/23 13:41 SARS CoV-2 RNA Rapid [place] Negative (NEGATIVE) 04/01/23 10:40 Ca 13, Na 130 XRAY XRAY Interpreted by: Both X-ray Results: + R sided mass Opioid Opioid Risk Tool Age ([place]liver box if 16-45): No History of Preadolescent Sexual Abuse: No Total: 0 Total Score Risk Category: Low Risk Copyright: Nathaniel JAMES predicting aberrant behaviors Discharge Plan Diagnosis Discharge Problem: Hypercalcemia, Hyponatremia Discharge Plan Patient Disposition: ADMITTED INPATIENT Condition: Stable Orders to Discharge Patient Discharge Orders: Transfer (Routine); Ordered 04/01/23 Ordered By: Bhupinder Crawley
[2023-04-01] MEDS ORDERED: PROTONIX INJ 40 MG VIAL IVP ONE (11:59)
[2023-04-01] MEDS ORDERED: NS 1,000 ML IV 1,000 ML IV ONE ×2 (11:59→15:02)
[2023-04-01] MEDS ORDERED: ZOFRAN INJ 4 MG VIAL IVP ONE (11:59)
[2023-04-01] MEDS ORDERED: ZOFRAN INJ 4 MG VIAL ONE (12:08)
[2023-04-01] MEDS ORDERED: PROTONIX INJ 40 MG VIAL ONE (12:08)
[2023-04-01] MEDS ORDERED: NS 1,000 ML IV 1,000 ML ONE ×4 (12:08→20:38)
[2023-04-01 12:57] LABS: BASOPHILS # (AUTO) 0.2 X10^3/uL (0.0-0.1); EOSINOPHILS # (AUTO) 0.2 x10^3/uL (0.0-0.2); EOSINOPHILS % (AUTO) 0.9 % (0.9-2.9); HEMATOCRIT 38.8 % (42.0-54.0); HEMOGLOBIN 12.7 g/dL (13.5-18.0); LYMPHOCYTES # (AUTO) 2.1 X10^3/uL (1.3-2.9); LYMPHOCYTES % (AUTO) 11.6 % (21.0-51.0); MEAN CORPUSCULAR HEMOGLOBIN 26.5 pg (27.0-34.0); MEAN CORPUSCULAR HGB CONC 32.8 g/dL (33.0-35.0); MEAN CORPUSCULAR VOLUME 80.8 fL (80.0-100.0); MEAN PLATELET VOLUME 8.4 fL (7.4-11.0); MONOCYTES # (AUTO) 0.9 x10^3/uL (0.3-0.8); MONOCYTES % (AUTO) 5.3 % (0.0-13.0); NEUTROPHILS # (AUTO) 14.7 x10^3/uL (2.2-4.8); NEUTROPHILS % (AUTO) 81.2 % (42.0-75.0); PLATELET COUNT 470 X10^3/uL (150.0-450.0); RED BLOOD COUNT 4.79 X10^6/uL (4.7-6.0); RED CELL DISTRIBUTION WIDTH 14.6 % (11.6-16.5)
[2023-04-01 13:09] LABS: ALANINE AMINOTRANSFERASE 17 Units/L (12-78); ALBUMIN 2.3 g/dL (3.4-5.0); ALKALINE PHOSPHATASE 106 Units/L (46-116); ASPARTATE AMINO TRANSFERASE 17 Units/L (15-37); BLOOD UREA NITROGEN 10 mg/dL (7-18); CARBON DIOXIDE 25.4 mmol/L (21-32); CHLORIDE 100 mmol/L (98-107); COR CA(FOR HYPOALB) 14.4 mg/dL (8.5-10.1); COR NA(FOR HYPERGLY) 131 mmol/L (136-145); CREATININE 1.26 mg/dL (0.70-1.30); GLUCOSE 121 mg/dL (65-99); LIPASE 166 Units/L (73-393); POTASSIUM 5.6 mmol/L (3.5-5.1); SODIUM 130 mmol/L (136-145); TOTAL PROTEIN 6.4 g/dL (6.4-8.2); eGFR NON BLACK RACES > 60 (>60)
[2023-04-01 13:48] LABS: BILIRUBIN,URINE NEGATIVE (NEGATIVE); BLOOD/HEMOGLOBIN,URINE NEGATIVE (NEGATIVE); GLUCOSE, URINE NEGATIVE (NEGATIVE); KETONES,URINE NEGATIVE (NEGATIVE); LEUKOCYTE ESTERASE ,URINE NEGATIVE (NEGATIVE); NITRITES,URINE NEGATIVE (NEGATIVE); PROTEIN,URINE 1+ (NEGATIVE); UROBILINOGEN,URINE NORMAL (NORMAL)
[2023-04-01 13:50] LABS: APPEARANCE,URINE CLEAR (CLEAR); COLOR,URINE YELLOW (YELLOW)
[2023-04-01 14:00] LABS: BACTERIA,URINE TRACE /HPF (NEGATIVE); HYALINE CASTS, URINE RARE /LPF (NEGATIVE); RBC,URINE 0-2 /HPF (0-3); SQUAMOUS EPITHELIAL CELL,UR RARE /HPF (NEGATIVE)
--- NOTE | 2023-04-01 15:48 | RAD ---
HISTORYWeakness, history of lung CASTUDYAP chestCOMPARISONChest CT March 19, 2023FINDINGSHeart size normal with sternal wires. The left lung is clear. There is a soft tissue mass density projected below the right hilum in the medial right lower lung. The right upper lobe is clear. There is no definite pleural fluid.IMPRESSIONSoft tissue mass density in the right lower lung is concerning for neoplasm, as described on the recent chest CT examination.Electronically signed by: ADAL SUAREZ (Apr 01, 2023 15:46:40)
[2023-04-01] MEDS: NS 1,000 ML IV 1,000 ML IV SCH ×3 (15:59→22:49)
[2023-04-01] MEDS ORDERED: LASIX PO PRN (16:53)
[2023-04-01] MEDS ORDERED: NS 1,000 ML IV 1,000 ML IV SCH (17:00)
[2023-04-01] MEDS ORDERED: CONSULT PHARMACY - POTASSIUM & MAGNESIUM XX SCH (17:00)
[2023-04-01] MEDS ORDERED: NICOTINE PATCH TD ONE (17:02)
[2023-04-01] MEDS ORDERED: ROXICODONE TAB 5 MG PO ONE (17:03)
[2023-04-01] MEDS: NICOTINE PATCH TD SCH (17:07)
[2023-04-01] MEDS: ROXICODONE TAB 15 MG PO PRN (17:08)
[2023-04-01] MEDS ORDERED: TUMS PO PRN (17:09)
[2023-04-01] MEDS ORDERED: TUMS ONE (17:12)
[2023-04-01] MEDS: REGLAN TAB 10 MG PO SCH ×2 (17:19→20:46)
[2023-04-01] MEDS ORDERED: MAALOX or MYLANTA PO PRN (19:40)
[2023-04-01] MEDS ORDERED: COLACE CAP 100 MG PO ONE (19:57)
[2023-04-01] MEDS ORDERED: MAALOX or MYLANTA ONE (19:58)
[2023-04-01] MEDS ORDERED: CHRONULAC ONE (19:58)
[2023-04-01] MEDS ORDERED: ELIQUIS ONE (19:58)
[2023-04-01] MEDS ORDERED: NEURONTIN CAP 400 MG ONE (20:33)
[2023-04-01] MEDS: CHRONULAC PO SCH (20:46)
[2023-04-01] MEDS: ELIQUIS PO SCH (20:46)
[2023-04-01] MEDS: COLACE CAP 100 MG PO SCH (20:47)
[2023-04-01] MEDS: CHECK PATCH XX SCH (20:47)
[2023-04-01] MEDS ORDERED: PATIENT'S HOME MEDICATION (Lactulose 10 gram/15 mL solution) PO SCH (21:00)
[2023-04-01] MEDS: NEURONTIN CAP 400 MG PO SCH (21:34)
[2023-04-02] MEDS: NS 1,000 ML IV 1,000 ML IV SCH ×3 (00:55→21:04)
--- NOTE | 2023-04-02 04:52 | RAD ---
HISTORYSOB Relevant Clinical InformationSTUDYCHEST, 1 [id number]/23/2023FINDINGSThe trachea is midline. The cardiac silhouette is unremarkable. Changes of prior CABG surgery. The lungs are clear without focal infiltrate or effusion. The bony thorax is unremarkable.IMPRESSIONNo acute cardiopulmonary findings .Electronically signed by: Dimitry Mcwilliams (Apr 02, 2023 04:51:15)
[2023-04-02] MEDS: ROXICODONE TAB 15 MG PO PRN ×3 (05:25→20:57)
[2023-04-02] MEDS: NEURONTIN CAP 400 MG PO SCH ×3 (05:25→23:05)
[2023-04-02] MEDS: REGLAN TAB 10 MG PO SCH ×4 (05:48→20:58)
[2023-04-02 06:29] LABS: BASOPHILS # (AUTO) 0.3 X10^3/uL (0.0-0.1); BASOPHILS % (AUTO) 1.5 % (0.2-1.0); EOSINOPHILS # (AUTO) 0.1 x10^3/uL (0.0-0.2); EOSINOPHILS % (AUTO) 0.7 % (0.9-2.9); HEMATOCRIT 39.5 % (42.0-54.0); HEMOGLOBIN 12.9 g/dL (13.5-18.0); LYMPHOCYTES % (AUTO) 9.9 % (21.0-51.0); MEAN CORPUSCULAR HEMOGLOBIN 26.4 pg (27.0-34.0); MEAN CORPUSCULAR HGB CONC 32.6 g/dL (33.0-35.0); MEAN CORPUSCULAR VOLUME 80.7 fL (80.0-100.0); MEAN PLATELET VOLUME 9.1 fL (7.4-11.0); MONOCYTES # (AUTO) 1.1 x10^3/uL (0.3-0.8); MONOCYTES % (AUTO) 5.5 % (0.0-13.0); NEUTROPHILS # (AUTO) 16.5 x10^3/uL (2.2-4.8); NEUTROPHILS % (AUTO) 82.4 % (42.0-75.0); PLATELET COUNT 454 X10^3/uL (150.0-450.0); RED BLOOD COUNT 4.89 X10^6/uL (4.7-6.0); RED CELL DISTRIBUTION WIDTH 14.6 % (11.6-16.5)
[2023-04-02 06:52] LABS: ALANINE AMINOTRANSFERASE 15 Units/L (12-78); ALBUMIN 2.3 g/dL (3.4-5.0); ALKALINE PHOSPHATASE 99 Units/L (46-116); ASPARTATE AMINO TRANSFERASE 23 Units/L (15-37); BLOOD UREA NITROGEN 9 mg/dL (7-18); CARBON DIOXIDE 21.6 mmol/L (21-32); CHLORIDE 101 mmol/L (98-107); COR CA(FOR HYPOALB) 14.7 mg/dL (8.5-10.1); CREATININE 1.12 mg/dL (0.70-1.30); GLUCOSE 106 mg/dL (65-99); POTASSIUM 5.3 mmol/L (3.5-5.1); SODIUM 130 mmol/L (136-145); TOTAL PROTEIN 6.5 g/dL (6.4-8.2); eGFR NON BLACK RACES > 60 (>60)
[2023-04-02 07:02] LABS: CALCIUM 13.3 mg/dL (8.5-10.1)
[2023-04-02] MEDS: ELIQUIS PO SCH ×2 (09:27→20:58)
[2023-04-02] MEDS: COLACE CAP 100 MG PO SCH ×2 (09:27→20:58)
[2023-04-02] MEDS: CHRONULAC PO SCH ×2 (09:27→20:58)
[2023-04-02] MEDS: PROTONIX TAB 40 MG PO SCH (09:27)
[2023-04-02] MEDS: NICOTINE PATCH TD SCH (09:28)
[2023-04-02] MEDS: FLOMAX PO SCH (09:28)
[2023-04-02] MEDS: CHECK PATCH XX SCH ×2 (09:28→21:03)
[2023-04-02] MEDS: LEVAQUIN PREMIX IV 500 MG 500 MG/100 ML BAG IV SCH (10:39)
[2023-04-02] MEDS: LASIX IVP SCH ×2 (10:39→16:44)
[2023-04-02] MEDS ORDERED: FORTAZ or TAZICEF VIAL INJ IVP SCH (11:00)
[2023-04-02] MEDS ORDERED: NS 500 ML IV 500 ML with AREDIA 90 MG IV ONE ×2 (11:00)
[2023-04-02] MEDS: FORTAZ or TAZICEF VIAL INJ 1 G in NS 100 ML IV 100 ML IV SCH ×3 (12:20→23:04)
--- NOTE | 2023-04-02 12:31 | DR.UPDATE ---
H&P Update Prescription drug monitoring program results: PDMP reviewed with concerns identified H&P Reviewed: Yes Any changes to H&P?: Yes Changes noted:: WAS HOSPITALIZED FROM 03/17 UNTIL 03/23 FOR TREATMENT OF DEHYDRATION, HYPERCALCEMIA, HYPOKALEMIA, AND HYPOALBUMINEMIA. CT AND MRI ALSO REVEALED A LUNG MASS AND A LEFT ADRENAL NODULE AND RENAL LESIONS, CONCERNING FOR METASTATIC DISEASE. HE WAS REFERRED TO ONCOLOGY, . HE HAS AN APPOINTMENT SCHEDULE WITH HIM ON 04/08/23. HE RETURNED TO THE ER ON 04/01 WITH COMPLAINTS OF INCREASING WEAKNESS, DECREASED ORAL INTAKE, NAUSEA, AND GENERALIZED BODY ACHES. HE DENIES HAVING A BOWEL MOVEMENT IN THE PAST WEEK, BUT DOES REPORT HAVING CHRONIC CONSTIPATION. HE DENIES FEVER, CHILLS, ABDOMINAL PAIN, COUGH, OR SHORTNESS OF BREATH. ON ARRIVAL TO THE ER, HIS VITALS WERE: 98.0-89-18-94%-102/58. LABS WERE OBTAINED. WBC 18.0, RBC 4.79, HGB 12.7, HCT 38.8, PLT COUNT 470, SODIUM 130, POTASSIUM 5.6, CHLORIDE 100, CARBON DIOXIDE 25.4, BUN 10, CREATININE 1.26, GLUCOSE 121, CALCIUM 13.0, TOTAL BILI 0.50, AST 17, ALT 17, ALK PHOS 106, TOTAL PROTEIN 6.4, ALBUMIN 2.3, LIPASE 166. URINALYSIS WAS OBTAINED AND REVEALED: WBC 0-2, RBC 0-2, BACTERIA TRACE, LEUKOCYTES NEGATIVE. BLOOD CULTURES WERE SET UP. A CHEST XRAY WAS OBTAINED AND REVEALED: Soft tissue mass density in the right lower lung is concerning for neoplasm, as described on the recent chest CT examination. IN THE ER, HE WAS GIVEN A NORMAL SALINE BOLUS X 2 LITERS, PROTONIX 40MG IV X 1, ZOFRAN 4MG IV X 1. HE WAS ADMITTED TO THE HOSPITAL, INPATIENT STATUS, FOR FURTHER EVALUATION AND TREATMENT OF LEUKOCYTOSIS, HYPERCALCEMIA, HYPERKALEMIA, HYPONATREMIA. HE WAS STARTED ON NORMAL SALINE AT 125 ML/HR, FORTAZ 1G IV Q8H, LEVAQUIN 500MG IV DAILY, PAMIDRONATE DISODIUM 90MG IV X 1, LASIX 20MG IV BID, AND A NICOTINE PATCH. HIS HOME MEDICATIONS OF ELIQUIS, NEURONITIN, LACTULOSE, LORAZEPAM, METOCLOPRAMIDE, OXYCODONE, PANTOPRAZOLE, AND TAMSULOSIN WERE RESUMED. WE WILL OBTAIN A KUB, AIT RESPIRATORY PANEL, STOOL CULTURE, AND URINE CULTURE. OTHERWISE, WE WILL FOLLOW UP WITH AM LABS AND CONTINUE TO MONITOR. TIME SPENT ON CLINICAL ASSESSMENT, REVIEWING LABS AND IMAGING, DECISION MAKING, AND DOCUMENTATION GREATER THAN 75 MINUTES. Patient was examined?: Yes
--- NOTE | 2023-04-02 16:55 | RAD ---
HISTORYconstipationSTUDYKUBCOMPARISON r.br.br.br.br.br normal bowel gas pattern. No pathological soft tissue mass or calcification can be observed. The bony structures are grossly intact.IMPRESSIONNo evidence for acute abdominal pathology identified.Electronically signed by: Awais Jennings (Apr 02, 2023 16:54:29)
[2023-04-03] MEDS: NS 1,000 ML IV 1,000 ML IV SCH ×3 (01:31→18:57)
[2023-04-03] MEDS: FORTAZ or TAZICEF VIAL INJ 1 G in NS 100 ML IV 100 ML IV SCH ×3 (05:30→20:59)
[2023-04-03] MEDS: ROXICODONE TAB 15 MG PO PRN ×3 (05:31→20:52)
[2023-04-03] MEDS: NEURONTIN CAP 400 MG PO SCH ×3 (05:31→20:59)
[2023-04-03] MEDS: REGLAN TAB 10 MG PO SCH ×4 (05:32→20:51)
--- NOTE | 2023-04-03 06:42 | RAD ---
HISTORYShortness of breathSTUDYChest AP [id number]/24/2023FINDINGSPati ent is status post median sternotomy and CABG. Heart size is normal. Lungs are mildly hyperinflated and free of acute infiltrates. No pneumothoraces or pleural effusions are identified. Bony thorax is unremarkable.IMPRESSIONLungs mildly hyperinflated but clearElectronically signed by: NANCY RINALDI (Apr 03, 2023 06:40:47)
[2023-04-03 06:48] LABS: BASOPHILS # (AUTO) 0.2 X10^3/uL (0.0-0.1); BASOPHILS % (AUTO) 0.8 % (0.2-1.0); EOSINOPHILS # (AUTO) 0.1 x10^3/uL (0.0-0.2); EOSINOPHILS % (AUTO) 0.6 % (0.9-2.9); HEMATOCRIT 36.3 % (42.0-54.0); LYMPHOCYTES # (AUTO) 1.7 X10^3/uL (1.3-2.9); LYMPHOCYTES % (AUTO) 9.3 % (21.0-51.0); MEAN CORPUSCULAR HEMOGLOBIN 26.4 pg (27.0-34.0); MEAN CORPUSCULAR VOLUME 79.9 fL (80.0-100.0); MEAN PLATELET VOLUME 9.2 fL (7.4-11.0); MONOCYTES % (AUTO) 5.8 % (0.0-13.0); NEUTROPHILS % (AUTO) 83.5 % (42.0-75.0); PLATELET COUNT 452 X10^3/uL (150.0-450.0); RED BLOOD COUNT 4.54 X10^6/uL (4.7-6.0); RED CELL DISTRIBUTION WIDTH 14.7 % (11.6-16.5)
[2023-04-03 06:56] LABS: ALANINE AMINOTRANSFERASE 13 Units/L (12-78); ALKALINE PHOSPHATASE 97 Units/L (46-116); ASPARTATE AMINO TRANSFERASE 26 Units/L (15-37); BLOOD UREA NITROGEN 9 mg/dL (7-18); CHLORIDE 101 mmol/L (98-107); COR CA(FOR HYPOALB) 14.7 mg/dL (8.5-10.1); CREATININE 1.07 mg/dL (0.70-1.30); GLUCOSE 110 mg/dL (65-99); POTASSIUM 4.7 mmol/L (3.5-5.1); SODIUM 130 mmol/L (136-145); TOTAL PROTEIN 6.1 g/dL (6.4-8.2); eGFR NON BLACK RACES > 60 (>60)
[2023-04-03 07:00] LABS: CALCIUM 13.1 mg/dL (8.5-10.1)
[2023-04-03] MEDS: COLACE CAP 100 MG PO SCH ×2 (09:30→20:51)
[2023-04-03] MEDS: CHRONULAC PO SCH ×2 (09:30→20:51)
[2023-04-03] MEDS: PROTONIX TAB 40 MG PO SCH (09:31)
[2023-04-03] MEDS: LEVAQUIN PREMIX IV 500 MG 500 MG/100 ML BAG IV SCH (09:31)
[2023-04-03] MEDS: NICOTINE PATCH TD SCH (09:31)
[2023-04-03] MEDS: LASIX IVP SCH ×2 (09:31→16:58)
[2023-04-03] MEDS: CHECK PATCH XX SCH ×2 (09:31→20:51)
[2023-04-03] MEDS: FLOMAX PO SCH (09:31)
[2023-04-03] MEDS: ELIQUIS PO SCH ×2 (09:31→20:51)
[2023-04-03] MEDS: TORADOL 30 MG VIAL IVP SCH ×2 (09:35→17:00)
--- NOTE | 2023-04-03 10:52 | PCM.PROG ---
Progress Note - Progress Note for Day of Date of Exam: 04/03/23 - Subjective Subjective: IS CURRENTLY INPATIENT STATUS. HE WAS ADMITTED FOR TREATMENT OF LEUKOCYTOSIS, HYPERCALCEMIA, HYPERKALEMIA, HYPONATREMIA, AND NEWLY DIAGNOSED METASTATIC DISEASE. PRIMARY IS IN THE LUNGS. THERE ARE ADRENAL AND RENAL LESIONS. HE HAS AN INITIAL APPOINTMENT SCHEDULED WITH NEXT WEEK. HE HAS A PMH OF COPD, CAD, DYSLIPIDEMIA, GASTROPARESIS, CABG. TODAY, HE IS LYING IN BED WITH EYES CLOSED ON MORNING ROUNDS. HE DOES AWAKEN TO VERBAL STIMULI. HE IS ABLE TO ANSWER QUESTIONS AND FOLLOW COMMANDS APPROPRIATELY THIS MORNING. HE CONTINUES TO COMPLAIN OF WEAKNESS, DECREASED APPETITE, NAUSEA, AND GENERALIZED PAIN THIS MORNING. HE DENIES SIGNIFICANT IMPROVEMENT IN SYMPTOMS SINCE ADMISSIO N. ON EXAMINATION, HEART IS REGULAR IN RATE AND RHYTHM. BILATERAL LUNGS ARE NOTED WITH DIMINISHED LUNG SOUNDS THROUGHOUT. ABDOMEN IS ROUND, SOFT, AND NON- TENDER WITH HYPERACTIVE BOWEL SOUNDS NOTED IN ALL QUADRANTS. GOOD MOVEMENT NOTED TO UPPER AND LOWER EXTREMITIES WITH NO EDEMA NOTED. A FREEDMAN CATHETER IS NOTED TO BEDSIDE DRAINAGE. HIS VITALS THIS MORNING ARE: 98.5-93-20-96%-133/63. LABS WERE OBTAINED. WBC 18.0, RBC 4.54, HGB 12.0, HCT 36.3, PLT COUNT 452, SODIUM 130, POTASSIUM 4.7, CHLORIDE 101, BUN 9, CREATININE 1.07, GLUCOSE 110, CALCIUM 13.1, TOTAL BILI 0.50, AST 26, ALT 13, ALK PHOS 97, TOTAL PROTEIN 6.1, ALBUMIN 2.0. BLOOD AND URINE CULTURES ARE PENDING. RESPIRATORY PANEL IS PENDING. A KUB WAS OBTAINED YESTERDAY AND WAS UNREMARKABLE. A CHEST XRAY WAS REPEATED THIS MORNING. LUNGS WERE MILDLY HYPERINFLATED, BUT CLEAR. HE IS CURRENTLY RECEIVING NORMAL SALINE AT 125 ML/HR, FORTAZ 1G IV Q8H, LEVAQUIN 500MG IV DAILY, PAMIDRONATE DISODIUM 90MG IV X 1, LASIX 20MG IV BID, AND A NICOTINE PATCH. HIS HOME MEDICATIONS OF ELIQUIS, NEURONITIN, LACTULOSE, LORAZEPAM, METOCLOPRAMIDE, OXYCODONE, PANTOPRAZOLE, AND TAMSULOSIN WERE RESUMED. WE WILL OBTAIN A KUB, AIT RESPIRATORY PANEL, STOOL CULTURE, AND URINE CULTURE. TODAY, WE WILL ADD TORADOL 30MG IV Q8H AND INCREASE OXYCODONE TO 15MG QID. OTHERWISE, WE WILL FOLLOW UP WITH AM LABS AND CONTINUE TO MONITOR. TIME SPENT ON CLINICAL ASSESSMENT, R EVIEWING LABS AND IMAGING, DECISION MAKING, AND DOCUMENTATION GREATER THAN 45 MINUTES. - Past Medical Family Social History Past Med/Fam/Surg Hx: No changes since H&P Allergies: Allergies No Known Drug Allergies Allergy (Verified 03/25/23 08:37) - Review of Systems ROS: No change since H&P - Vital Signs and I&O's Vital Signs: Vital Signs Temperature 98.5 F Temperature 98.9 F Pulse Rate [Left Radial] 93 Pulse Rate [Left Radial] 74 Respiratory Rate 18 Respiratory Rate 15 Respiratory Rate 20 Respiratory Rate 18 Respiratory Rate 18 Respiratory Rate 20 Blood Pressure [Left Arm] 133/63 Blood Pressure [Left Arm] 145/65 O2 Sat by Pulse Oximetry 96 O2 Sat by Pulse Oximetry 96 Intake and Output: Intake & Output 03/31/23 04/01/23 04/02/23 04/03/23 11:59 11:59 11:59 11:59 Intake Total 1913 4300 / 4300 Output Total 4000 / 4000 Balance 1913 300 / 300 - Physical Exam Oriented: Normal Eyes: Normal Ear: Normal Nose: Normal Throat: Normal Respiratory: Diminished Cardiovascular: Normal : Normal Auscultation: Bowel Sounds: Normal Palpation: Normal Tenderness: Normal Skin: Normal Musculoskeletal: Normal Psychiatric: Normal Mood Description: Calm Affect: Normal Speech Pattern: Clear, Appropriate - Laboratory and Diagnostics Result Diagrams: 04/03/23 05:52 04/03/23 05:52 Labs: Laboratory WBC 18.0 X10^3/uL (3.6-10.0) H 04/03/23 05:52 RBC 4.54 X10^6/uL (4.7-6.0) L 04/03/23 05:52 Hgb 12.0 g/dL (13.5-18.0) L 04/03/23 05:52 Hct 36.3 % (42.0-54.0) L 04/03/23 05:52 MCV 79.9 fL (80.0-100.0) L 04/03/23 05:52 MCH 26.4 pg (27.0-34.0) L 04/03/23 05:52 MCHC 33.0 g/dL (33.0-35.0) 04/03/23 05:52 RDW 14.7 % (11.6-16.5) 04/03/23 05:52 Plt Count 452 X10^3/uL (150.0-450.0) H 04/03/23 05:52 MPV 9.2 fL (7.4-11.0) 04/03/23 05:52 Neut % (Auto) 83.5 % (42.0-75.0) H 04/03/23 05:52 Lymph % (Auto) 9.3 % (21.0-51.0) L 04/03/23 05:52 [place] % (Auto) 5.8 % (0.0-13.0) 04/03/23 05:52 Eos % (Auto) 0.6 % (0.9-2.9) L 04/03/23 05:52 Baso % (Auto) 0.8 % (0.2-1.0) 04/03/23 05:52 Neut # (Auto) 15.0 x10^3/uL (2.2-4.8) H 04/03/23 05:52 Lymph # (Auto) 1.7 X10^3/uL (1.3-2.9) 04/03/23 05:52 [place] # (Auto) 1.0 x10^3/uL (0.3-0.8) H 04/03/23 05:52 Eos # (Auto) 0.1 x10^3/uL (0.0-0.2) 04/03/23 05:52 Baso # (Auto) 0.2 X10^3/uL (0.0-0.1) H 04/03/23 05:52 Absolute Nucleated RBC 0.0 /100WBC 04/03/23 05:52 Sodium 130 mmol/L (136-145) L 04/03/23 05:52 Corrected Sodium TNP 04/03/23 05:52 Potassium 4.7 mmol/L (3.5-5.1) 04/03/23 05:52 Chloride 101 mmol/L (98-107) 04/03/23 05:52 Carbon Dioxide 23.0 mmol/L (21-32) 04/03/23 05:52 BUN 9 mg/dL (7-18) 04/03/23 05:52 Creatinine 1.07 mg/dL (0.70-1.30) 04/03/23 05:52 Est GFR (MDRD) Af Amer > 60 (>60) 04/03/23 05:52 Est GFR (MDRD) Non-Af > 60 (>60) 04/03/23 05:52 Glucose 110 mg/dL (65-99) H 04/03/23 05:52 POC Glucose (mg/dL) 109 mg/dL (65-99) H 04/03/23 05:31 Calcium 13.1 mg/dL (8.5-10.1) H* 04/03/23 05:52 Corrected Calcium 14.7 mg/dL (8.5-10.1) H 04/03/23 05:52 Total Bilirubin 0.50 mg/dL (0.2-1.0) 04/03/23 05:52 AST 26 Units/L (15-37) 04/03/23 05:52 ALT 13 Units/L (12-78) 04/03/23 05:52 Alkaline Phosphatase 97 Units/L (46-116) 04/03/23 05:52 Total Protein 6.1 g/dL (6.4-8.2) L 04/03/23 05:52 Albumin 2.0 g/dL (3.4-5.0) L 04/03/23 05:52 Globulin 4.1 g/dL (2.5-4.5) 04/03/23 05:52 Albumin/Globulin Ratio 0.5 Ratio (1.1-2.1) L 04/03/23 05:52 Lipase 166 Units/L (73-393) 04/01/23 12:50 Specimen Type Clean catch urine 04/01/23 13:41 Urine Color Yellow (YELLOW) 04/01/23 13:41 Urine Appearance Clear (CLEAR) 04/01/23 13:41 Urine pH 6.0 (5.0 - 8.0) 04/01/23 13:41 Ur Specific [place] 1.020 (1.000-1.030) 04/01/23 13:41 Urine Protein 1+ (NEGATIVE) 04/01/23 13:41 Urine Glucose (UA) Negative (NEGATIVE) 04/01/23 13:41 Urine Ketones Negative (NEGATIVE) 04/01/23 13:41 Urine Blood Negative (NEGATIVE) 04/01/23 13:41 Urine Nitrite Negative (NEGATIVE) 04/01/23 13:41 Urine Bilirubin Negative (NEGATIVE) 04/01/23 13:41 Urine Urobilinogen Normal (NORMAL) 04/01/23 13:41 Ur Leukocyte Esterase Negative (NEGATIVE) 04/01/23 13:41 Urine RBC 0-2 /HPF (0-3) 04/01/23 13:41 Urine WBC 0-2 /HPF (0-5) 04/01/23 13:41 Ur Squamous Epith Cells Rare /HPF (NEGATIVE) 04/01/23 13:41 Urine Bacteria Trace /HPF (NEGATIVE) 04/01/23 13:41 Hyaline Casts Rare /LPF (NEGATIVE) 04/01/23 13:41 Ur Culture Indicated? No/not indicated 04/01/23 13:41 SARS CoV-2 RNA Rapid [place] Negative (NEGATIVE) 04/01/23 10:40 - Plan (1) Leukocytosis Status: Acute Qualifiers: Leukocytosis type: unspecified Qualified Code(s): D72.829 - Elevated white blood cell count, unspecified Plan: NORMAL SALINE AT 125 ML/HR, FORTAZ 1G IV Q8H, LEVAQUIN 500MG IV DAILY, PAMIDRONATE DISODIUM 90MG IV X 1, LASIX 20MG IV BID, AND A NICOTINE PATCH. RESUME HOME MEDS (2) Hypercalcemia Status: Acute (3) Hyponatremia Status: Acute (4) Generalized weakness Status: Acute (5) Mass of right lung Status: Acute (6) BPH (benign prostatic hyperplasia) Status: Chronic Qualifiers: Lower urinary tract symptom presence: unspecified whether lower urinary tract symptoms present Plan: CONTINUE TAMSULOSIN (7) GERD (gastroesophageal reflux disease) Status: Chronic Qualifiers: Esophagitis presence: esophagitis presence not specified Plan: CONTINUE PANTOPRAZOLE (8) Generalized anxiety disorder Status: Chronic Plan: CONTINUE LORAZEPAM (9) CAD (coronary artery disease) Status: Chronic Qualifiers: Coronary Disease-Associated Artery/Lesion type: bypass graft [place] vs. transplanted heart: [place] heart Associated angina: unspecified whether angina present Qualified Code(s): I25.810 - Atherosclerosis of coronary artery bypass graft(s) without angina pectoris Plan: CONTINUE ELIQUIS (10) Gastroparesis Status: Chronic Plan: CONTINUE METOCLOPRAMIDE
[2023-04-04] MEDS: NS 1,000 ML IV 1,000 ML IV SCH ×3 (02:02→15:59)
[2023-04-04] MEDS: TORADOL 30 MG VIAL IVP SCH ×3 (02:03→16:59)
[2023-04-04] MEDS: FORTAZ or TAZICEF VIAL INJ 1 G in NS 100 ML IV 100 ML IV SCH ×3 (05:31→20:59)
[2023-04-04] MEDS: NEURONTIN CAP 400 MG PO SCH ×3 (05:32→20:59)
[2023-04-04] MEDS: REGLAN TAB 10 MG PO SCH ×4 (05:32→20:56)
[2023-04-04] MEDS: ROXICODONE TAB 15 MG PO PRN ×2 (05:34→20:57)
[2023-04-04] MEDS: CHRONULAC PO SCH ×5 (05:41→20:57)
[2023-04-04 06:07] LABS: BASOPHILS # (AUTO) 0.2 X10^3/uL (0.0-0.1); BASOPHILS % (AUTO) 1.3 % (0.2-1.0); EOSINOPHILS # (AUTO) 0.2 x10^3/uL (0.0-0.2); EOSINOPHILS % (AUTO) 1.3 % (0.9-2.9); HEMATOCRIT 34.2 % (42.0-54.0); HEMOGLOBIN 11.1 g/dL (13.5-18.0); LYMPHOCYTES # (AUTO) 1.3 X10^3/uL (1.3-2.9); LYMPHOCYTES % (AUTO) 9.1 % (21.0-51.0); MEAN CORPUSCULAR HEMOGLOBIN 25.9 pg (27.0-34.0); MEAN CORPUSCULAR HGB CONC 32.6 g/dL (33.0-35.0); MEAN CORPUSCULAR VOLUME 79.5 fL (80.0-100.0); MEAN PLATELET VOLUME 9.2 fL (7.4-11.0); MONOCYTES # (AUTO) 0.8 x10^3/uL (0.3-0.8); MONOCYTES % (AUTO) 5.2 % (0.0-13.0); NEUTROPHILS # (AUTO) 12.1 x10^3/uL (2.2-4.8); NEUTROPHILS % (AUTO) 83.1 % (42.0-75.0); PLATELET COUNT 428 X10^3/uL (150.0-450.0); RED CELL DISTRIBUTION WIDTH 14.8 % (11.6-16.5); WHITE BLOOD COUNT 14.5 X10^3/uL (3.6-10.0)
[2023-04-04 06:22] LABS: ALANINE AMINOTRANSFERASE 19 Units/L (12-78); ALBUMIN 1.8 g/dL (3.4-5.0); ALKALINE PHOSPHATASE 95 Units/L (46-116); ASPARTATE AMINO TRANSFERASE 31 Units/L (15-37); BLOOD UREA NITROGEN 11 mg/dL (7-18); CARBON DIOXIDE 24.7 mmol/L (21-32); CHLORIDE 102 mmol/L (98-107); COR CA(FOR HYPOALB) 14.7 mg/dL (8.5-10.1); GLUCOSE 105 mg/dL (65-99); POTASSIUM 4.3 mmol/L (3.5-5.1); SODIUM 131 mmol/L (136-145); TOTAL PROTEIN 5.5 g/dL (6.4-8.2); eGFR NON BLACK RACES > 60 (>60)
[2023-04-04 06:25] LABS: CALCIUM 12.9 mg/dL (8.5-10.1)
--- NOTE | 2023-04-04 08:11 | RAD ---
HISTORYSOBSTUDYCHEST, 1 [id number]/25/2023FINDINGSThe cardiomediastinal silhouette is stable. Similar post sternotomy changes. Right basilar opacities. No pneumothorax or effusion. The bony thorax appears intact.IMPRESSIONRight basilar opacities which may reflect atelectasis or pneumonia. Continued follow-up recommended.Electronically signed by: NANCY RINALDI (Apr 04, 2023 08:10:15)
[2023-04-04] MEDS: LEVAQUIN PREMIX IV 500 MG 500 MG/100 ML BAG IV SCH (09:19)
[2023-04-04] MEDS: COLACE CAP 100 MG PO SCH ×2 (09:19→20:57)
[2023-04-04] MEDS: PROTONIX TAB 40 MG PO SCH (09:20)
[2023-04-04] MEDS: LASIX IVP SCH ×2 (09:20→16:12)
[2023-04-04] MEDS: FLOMAX PO SCH (09:20)
[2023-04-04] MEDS: ELIQUIS PO SCH ×2 (09:20→20:56)
[2023-04-04] MEDS: NICOTINE PATCH TD SCH (09:21)
[2023-04-04] MEDS: CHECK PATCH XX SCH ×2 (10:30→20:56)
[2023-04-05] MEDS: NS 1,000 ML IV 1,000 ML IV SCH ×3 (01:34→20:47)
[2023-04-05] MEDS: TORADOL 30 MG VIAL IVP SCH ×3 (01:35→18:44)
[2023-04-05] MEDS: ROXICODONE TAB 15 MG PO PRN ×2 (04:29→20:47)
[2023-04-05] MEDS: FORTAZ or TAZICEF VIAL INJ 1 G in NS 100 ML IV 100 ML IV SCH ×3 (05:03→20:59)
[2023-04-05] MEDS: NEURONTIN CAP 400 MG PO SCH ×3 (05:04→20:59)
[2023-04-05] MEDS: REGLAN TAB 10 MG PO SCH ×4 (05:39→20:46)
[2023-04-05] MEDS: MILK OF MAGNESIA PO SCH ×2 (05:39→18:45)
[2023-04-05 07:18] LABS: BASOPHILS # (AUTO) 0.1 X10^3/uL (0.0-0.1); BASOPHILS % (AUTO) 0.7 % (0.2-1.0); EOSINOPHILS # (AUTO) 0.2 x10^3/uL (0.0-0.2); EOSINOPHILS % (AUTO) 0.8 % (0.9-2.9); HEMATOCRIT 34.8 % (42.0-54.0); HEMOGLOBIN 11.5 g/dL (13.5-18.0); LYMPHOCYTES # (AUTO) 1.7 X10^3/uL (1.3-2.9); LYMPHOCYTES % (AUTO) 9.1 % (21.0-51.0); MEAN CORPUSCULAR HEMOGLOBIN 26.1 pg (27.0-34.0); MEAN CORPUSCULAR HGB CONC 32.9 g/dL (33.0-35.0); MEAN CORPUSCULAR VOLUME 79.4 fL (80.0-100.0); MEAN PLATELET VOLUME 9.6 fL (7.4-11.0); MONOCYTES # (AUTO) 1.3 x10^3/uL (0.3-0.8); MONOCYTES % (AUTO) 6.9 % (0.0-13.0); NEUTROPHILS # (AUTO) 15.6 x10^3/uL (2.2-4.8); NEUTROPHILS % (AUTO) 82.5 % (42.0-75.0); PLATELET COUNT 427 X10^3/uL (150.0-450.0); RED BLOOD COUNT 4.39 X10^6/uL (4.7-6.0); RED CELL DISTRIBUTION WIDTH 14.9 % (11.6-16.5); WHITE BLOOD COUNT 18.9 X10^3/uL (3.6-10.0)
--- NOTE | 2023-04-05 07:45 | RAD ---
HISTORYSOBSTUDYCHEST, 1 [id number]/26/2023FINDINGSThe cardiomediastinal silhouette is stable. Similar post sternotomy changes. Right basilar opacities. No pneumothorax or effusion. The bony thorax appears intact.IMPRESSIONSimilar right basilar opacities which may reflect atelectasis or pneumonia.Electronically signed by: NANCY RINALDI (Apr 05, 2023 07:43:47)
[2023-04-05 07:51] LABS: ALANINE AMINOTRANSFERASE 20 Units/L (12-78); ALBUMIN 1.8 g/dL (3.4-5.0); ALKALINE PHOSPHATASE 94 Units/L (46-116); ASPARTATE AMINO TRANSFERASE 33 Units/L (15-37); BLOOD UREA NITROGEN 14 mg/dL (7-18); CARBON DIOXIDE 24.7 mmol/L (21-32); CHLORIDE 101 mmol/L (98-107); COR CA(FOR HYPOALB) 14.5 mg/dL (8.5-10.1); CREATININE 1.01 mg/dL (0.70-1.30); GLUCOSE 89 mg/dL (65-99); POTASSIUM 4.6 mmol/L (3.5-5.1); SODIUM 133 mmol/L (136-145); TOTAL PROTEIN 5.8 g/dL (6.4-8.2); eGFR NON BLACK RACES > 60 (>60)
[2023-04-05 08:07] LABS: CALCIUM 12.7 mg/dL (8.5-10.1)
[2023-04-05] MEDS: LEVAQUIN PREMIX IV 500 MG 500 MG/100 ML BAG IV SCH (08:56)
[2023-04-05] MEDS: NICOTINE PATCH TD SCH (08:58)
[2023-04-05] MEDS: ELIQUIS PO SCH ×2 (08:59→20:45)
[2023-04-05] MEDS: COLACE CAP 100 MG PO SCH ×2 (08:59→20:45)
[2023-04-05] MEDS: FLOMAX PO SCH (08:59)
[2023-04-05] MEDS: CHRONULAC PO SCH ×3 (09:00→20:46)
[2023-04-05] MEDS: CHECK PATCH XX SCH ×2 (09:00→20:46)
[2023-04-05] MEDS: PROTONIX TAB 40 MG PO SCH (09:04)
[2023-04-05] MEDS: LASIX IVP SCH ×2 (09:04→18:43)
[2023-04-06] MEDS: TORADOL 30 MG VIAL IVP SCH ×3 (02:35→17:54)
[2023-04-06] MEDS: MILK OF MAGNESIA PO SCH ×2 (05:19→17:53)
[2023-04-06] MEDS: FORTAZ or TAZICEF VIAL INJ 1 G in NS 100 ML IV 100 ML IV SCH ×3 (05:19→21:02)
[2023-04-06] MEDS: NEURONTIN CAP 400 MG PO SCH ×3 (05:19→21:02)
[2023-04-06] MEDS: REGLAN TAB 10 MG PO SCH ×4 (05:37→21:02)
--- NOTE | 2023-04-06 05:52 | RAD ---
HISTORYSOBSTUDYCHEST, 1 [id number]/27/2023FINDINGSThe cardiomediastinal silhouette is stable. Similar post sternotomy changes. Similar mild elevation of the right hemidiaphragm. No acute airspace disease. No pneumothorax or effusion. The bony thorax appears intact.IMPRESSIONNo acute cardiopulmonary disease.Electronically signed by: NANCY RINALDI (Apr 06, 2023 05:51:05)
[2023-04-06 06:11] LABS: BASOPHILS # (AUTO) 0.2 X10^3/uL (0.0-0.1); BASOPHILS % (AUTO) 0.9 % (0.2-1.0); EOSINOPHILS # (AUTO) 0.1 x10^3/uL (0.0-0.2); EOSINOPHILS % (AUTO) 0.6 % (0.9-2.9); HEMATOCRIT 33.4 % (42.0-54.0); HEMOGLOBIN 11.2 g/dL (13.5-18.0); LYMPHOCYTES # (AUTO) 1.8 X10^3/uL (1.3-2.9); LYMPHOCYTES % (AUTO) 9.2 % (21.0-51.0); MEAN CORPUSCULAR HEMOGLOBIN 26.2 pg (27.0-34.0); MEAN CORPUSCULAR HGB CONC 33.4 g/dL (33.0-35.0); MEAN CORPUSCULAR VOLUME 78.5 fL (80.0-100.0); MEAN PLATELET VOLUME 9.3 fL (7.4-11.0); MONOCYTES # (AUTO) 1.2 x10^3/uL (0.3-0.8); MONOCYTES % (AUTO) 6.1 % (0.0-13.0); NEUTROPHILS # (AUTO) 16.4 x10^3/uL (2.2-4.8); NEUTROPHILS % (AUTO) 83.2 % (42.0-75.0); PLATELET COUNT 422 X10^3/uL (150.0-450.0); RED BLOOD COUNT 4.26 X10^6/uL (4.7-6.0); RED CELL DISTRIBUTION WIDTH 14.7 % (11.6-16.5); WHITE BLOOD COUNT 19.8 X10^3/uL (3.6-10.0)
[2023-04-06 06:22] LABS: ALANINE AMINOTRANSFERASE 20 Units/L (12-78); ALBUMIN 1.9 g/dL (3.4-5.0); ALKALINE PHOSPHATASE 105 Units/L (46-116); ASPARTATE AMINO TRANSFERASE 35 Units/L (15-37); BLOOD UREA NITROGEN 16 mg/dL (7-18); CARBON DIOXIDE 24.5 mmol/L (21-32); CHLORIDE 101 mmol/L (98-107); COR CA(FOR HYPOALB) 14.8 mg/dL (8.5-10.1); COR NA(FOR HYPERGLY) 133 mmol/L (136-145); CREATININE 0.86 mg/dL (0.70-1.30); GLUCOSE 111 mg/dL (65-99); POTASSIUM 4.9 mmol/L (3.5-5.1); SODIUM 133 mmol/L (136-145); eGFR NON BLACK RACES > 60 (>60)
[2023-04-06 06:27] LABS: CALCIUM 13.1 mg/dL (8.5-10.1)
[2023-04-06] MEDS: LEVAQUIN PREMIX IV 500 MG 500 MG/100 ML BAG IV SCH (09:15)
[2023-04-06] MEDS: LASIX IVP SCH ×2 (09:18→17:53)
[2023-04-06] MEDS: ELIQUIS PO SCH ×2 (09:18→21:02)
[2023-04-06] MEDS: COLACE CAP 100 MG PO SCH ×2 (09:19→21:02)
[2023-04-06] MEDS: PROTONIX TAB 40 MG PO SCH (09:19)
[2023-04-06] MEDS: FLOMAX PO SCH (09:19)
[2023-04-06] MEDS: NICOTINE PATCH TD SCH (09:19)
[2023-04-06] MEDS: CHRONULAC PO SCH ×2 (09:24→21:04)
[2023-04-06] MEDS: CHECK PATCH XX SCH ×2 (09:24→21:03)
--- NOTE | 2023-04-06 10:11 | PCM.PROG ---
Progress Note - Progress Note for Day of Date of Exam: 04/06/23 - Subjective Subjective: IS CURRENTLY INPATIENT STATUS. HE IS CURRENTLY BEING TREATED FOR PNEUMONIA, HYPERCALCEMIA, HYPERKALEMIA, HYPONATREMIA, AND NEWLY DIAGNOSED METASTATIC DISEASE. PRIMARY IS IN THE LUNGS. THERE ARE ADRENAL AND RENAL LESIONS. HE HAS AN INITIAL APPOINTMENT SCHEDULED WITH ON THURSDAY OF THIS WEEK. HE HAS A PMH OF COPD, CAD, DYSLIPIDEMIA, GASTROPARESIS, CABG. TODAY, HE IS LYING IN BED WITH EYES CLOSED ON MORNING ROUNDS. HE DOES AWAKEN TO VERBAL STIMULI. HE IS ABLE TO ANSWER QUESTIONS AND FOLLOW COMMANDS APPROPRIATELY THIS MORNING. HE CONTINUES TO COMPLAIN OF WEAKNESS, OCCASIONAL SHORTNESS OF BREATH, DECREASED APPETITE, NAUSEA, AND GENERALIZED PAIN THIS MORNING. HE ONLY REPORTS MILD IMPROVEMENT IN SYMPTOMS SINCE ADMISSION. ON EXAMINATION, HEART IS REGULAR IN RATE AND RHYTHM. BILATERAL LUNGS ARE NOTED WITH DIMINISHED LUNG SOUNDS THROUGHOUT. ABDOMEN IS ROUND, SOFT, AND NON-TENDER WITH HYPERACTIVE BOWEL SOUNDS NOTED IN ALL QUADRANTS. GOOD MOVEMENT NOTED TO UPPER AND LOWER E XTREMITIES WITH NO EDEMA NOTED. A FREEDMAN CATHETER IS NOTED TO BEDSIDE DRAINAGE. HIS VITALS THIS MORNING ARE: 97.6-88-18-95%-127/62. LABS WERE OBTAINED. WBC 19.8, RBC 4.26, HGB 11.2, HCT 33.4, PLT COUNT 422, SODIUM 133, POTASSIUM 4.9, CHLORIDE 101, BUN 16, CREATININE 0.86, GLUCOSE 111, CALCIUM 13.1, AST 35, ALT 20, ALK PHOS 105, TOTAL PROTEIN 6.0, ALBUMIN 1.9. BLOOD AND URINE CULTURES ARE PENDING. RESPIRATORY PANEL IS NEGATIVE. A CHEST XRAY WAS REPEATED THIS MORNING. IT REVEALED: The cardiomediastinal silhouette is stable. Similar post sternotomy changes. Similar mild elevation of the right hemidiaphragm. No acute airspace disease. No pneumothorax or effusion. The bony thorax appears intact. HE IS CURRENTLY RECEIVING NORMAL SALINE AT 125 ML/HR, FORTAZ 1G IV Q8H, LEVAQUIN 500MG IV DAILY, LASIX 20MG IV BID, TORADOL 30MG IV Q8H, MILK OF MAGNESIA 30ML Q12H, AND A NICOTINE PATCH. HIS HOME MEDICATIONS OF ELIQUIS, NEURONITIN, LACTULOSE, LORAZEPAM, METOCLOPRAMIDE, OXYCODONE, PANTOPRAZOLE, AND TAMSULOSIN WERE RESUMED. WE WILL ADD ALBUMIN 25% IV DAILY, XOPENEX NEBS TID, AND PULMICORT NEBS BID. WE WILL HAVE PT/OT WORK WITH HIM TODAY. OTHERWISE, WE WILL FOLLOW UP WITH AM LABS AND CONTINUE TO MONITOR. TIME SPENT ON CLINICAL ASSESSMENT, REVIEWING LABS AND IMAGING, DECISION MAKING, AND DOCUMENTATION GREATER THAN 45 MINUTES. - Past Medical Family Social History Past Med/Fam/Surg Hx: No changes since H&P Allergies: Allergies No Known Drug Allergies Allergy (Verified 03/25/23 08:37) - Review of Systems ROS: No change since H&P - Vital Signs and I&O's Vital Signs: Vital Signs Temperature 97.6 F Temperature 98.5 F Pulse Rate [Left Radial] 88 Pulse Rate [Left Radial] 98 Respiratory Rate 18 Respiratory Rate 18 Respiratory Rate 18 Respiratory Rate 18 Respiratory Rate 18 Blood Pressure [Right Arm] 127/62 Blood Pressure [Right Arm] 113/60 O2 Sat by Pulse Oximetry 95 O2 Sat by Pulse Oximetry 95 Intake and Output: Intake & Output 04/03/23 04/04/23 04/05/23 04/06/23 11:59 11:59 11:59 11:59 Intake Total 4300 / 4300 4840 / 4840 3844 / 3844 4626 / 4626 Output Total 4000 / 4000 1925 / 1925 1700 / 1700 2450 / 2450 Balance 300 / 300 2915 / 2915 2144 / 2144 2176 / 2176 - Physical Exam Oriented: Normal Eyes: Normal Ear: Normal Nose: Normal Throat: Normal Respiratory: Diminished Cardiovascular: Normal : Normal Auscultation: Bowel Sounds: Normal Palpation: Normal Tenderness: Normal Skin: Normal Musculoskeletal: Normal Psychiatric: Normal Mood Description: Calm Affect: Normal Speech Pattern: Clear, Appropriate - Laboratory and Diagnostics Result Diagrams: 04/06/23 05:23 04/06/23 05:23 Labs: 04/03/23 02:12 Urine,Clean Catch Urine Culture - Final 04/02/23 09:21 Blood Blood Culture - Preliminary 04/02/23 09:05 Blood Blood Culture - Preliminary Laboratory WBC 19.8 X10^3/uL (3.6-10.0) H 04/06/23 05:23 RBC 4.26 X10^6/uL (4.7-6.0) L 04/06/23 05:23 Hgb 11.2 g/dL (13.5-18.0) L 04/06/23 05:23 Hct 33.4 % (42.0-54.0) L 04/06/23 05:23 MCV 78.5 fL (80.0-100.0) L 04/06/23 05:23 MCH 26.2 pg (27.0-34.0) L 04/06/23 05:23 MCHC 33.4 g/dL (33.0-35.0) 04/06/23 05:23 RDW 14.7 % (11.6-16.5) 04/06/23 05:23 Plt Count 422 X10^3/uL (150.0-450.0) 04/06/23 05:23 MPV 9.3 fL (7.4-11.0) 04/06/23 05:23 Neut % (Auto) 83.2 % (42.0-75.0) H 04/06/23 05:23 Lymph % (Auto) 9.2 % (21.0-51.0) L 04/06/23 05:23 [place] % (Auto) 6.1 % (0.0-13.0) 04/06/23 05:23 Eos % (Auto) 0.6 % (0.9-2.9) L 04/06/23 05:23 Baso % (Auto) 0.9 % (0.2-1.0) 04/06/23 05:23 Neut # (Auto) 16.4 x10^3/uL (2.2-4.8) H 04/06/23 05:23 Lymph # (Auto) 1.8 X10^3/uL (1.3-2.9) 04/06/23 05:23 [place] # (Auto) 1.2 x10^3/uL (0.3-0.8) H 04/06/23 05:23 Eos # (Auto) 0.1 x10^3/uL (0.0-0.2) 04/06/23 05:23 Baso # (Auto) 0.2 X10^3/uL (0.0-0.1) H 04/06/23 05:23 Absolute Nucleated RBC 0.9 /100WBC 04/06/23 05:23 Sodium 133 mmol/L (136-145) L 04/06/23 05:23 Corrected Sodium 133 mmol/L (136-145) L 04/06/23 05:23 Potassium 4.9 mmol/L (3.5-5.1) 04/06/23 05:23 Chloride 101 mmol/L (98-107) 04/06/23 05:23 Carbon Dioxide 24.5 mmol/L (21-32) 04/06/23 05:23 BUN 16 mg/dL (7-18) 04/06/23 05:23 Creatinine 0.86 mg/dL (0.70-1.30) 04/06/23 05:23 Est GFR (MDRD) Af Amer > 60 (>60) 04/06/23 05:23 Est GFR (MDRD) Non-Af > 60 (>60) 04/06/23 05:23 Glucose 111 mg/dL (65-99) H 04/06/23 05:23 POC Glucose (mg/dL) 115 mg/dL (65-99) H 04/06/23 05:23 Calcium 13.1 mg/dL (8.5-10.1) H* 04/06/23 05:23 Corrected Calcium 14.8 mg/dL (8.5-10.1) H 04/06/23 05:23 Total Bilirubin 0.40 mg/dL (0.2-1.0) 04/06/23 05:23 AST 35 Units/L (15-37) 04/06/23 05:23 ALT 20 Units/L (12-78) 04/06/23 05:23 Alkaline Phosphatase 105 Units/L (46-116) 04/06/23 05:23 Total Protein 6.0 g/dL (6.4-8.2) L 04/06/23 05:23 Albumin 1.9 g/dL (3.4-5.0) L 04/06/23 05:23 Globulin 4.1 g/dL (2.5-4.5) 04/06/23 05:23 Albumin/Globulin Ratio 0.5 Ratio (1.1-2.1) L 04/06/23 05:23 Lipase 166 Units/L (73-393) 04/01/23 12:50 Specimen Type Clean catch urine 04/01/23 13:41 Urine Color Yellow (YELLOW) 04/01/23 13:41 Urine Appearance Clear (CLEAR) 04/01/23 13:41 Urine pH 6.0 (5.0 - 8.0) 04/01/23 13:41 Ur Specific [place] 1.020 (1.000-1.030) 04/01/23 13:41 Urine Protein 1+ (NEGATIVE) 04/01/23 13:41 Urine Glucose (UA) Negative (NEGATIVE) 04/01/23 13:41 Urine Ketones Negative (NEGATIVE) 04/01/23 13:41 Urine Blood Negative (NEGATIVE) 04/01/23 13:41 Urine Nitrite Negative (NEGATIVE) 04/01/23 13:41 Urine Bilirubin Negative (NEGATIVE) 04/01/23 13:41 Urine Urobilinogen Normal (NORMAL) 04/01/23 13:41 Ur Leukocyte Esterase Negative (NEGATIVE) 04/01/23 13:41 Urine RBC 0-2 /HPF (0-3) 04/01/23 13:41 Urine WBC 0-2 /HPF (0-5) 04/01/23 13:41 Ur Squamous Epith Cells Rare /HPF (NEGATIVE) 04/01/23 13:41 Urine Bacteria Trace /HPF (NEGATIVE) 04/01/23 13:41 Hyaline Casts Rare /LPF (NEGATIVE) 04/01/23 13:41 Ur Culture Indicated? No/not indicated 04/01/23 13:41 Resp Viral Panel (PCR) See scanned report 04/02/23 14:54 SARS CoV-2 RNA Rapid [place] Negative (NEGATIVE) 04/01/23 10:40 - Plan (1) Pneumonia Status: Acute Qualifiers: Pneumonia type: due to unspecified organism Laterality: right Lung location: lower lobe of lung Qualified Code(s): J18.9 - Pneumonia, unspecified organism Plan: NORMAL SALINE AT 125 ML/HR, ALBUMIN 25% IV DAILY, PULMICORT NEBS BID, XOPENEX NEBS TID, FORTAZ 1G IV Q8H, LEVAQUIN 500MG IV DAILY, LASIX 20MG IV BID, AND A NICOTINE PATCH. RESUME HOME MEDS (2) Hypercalcemia Status: Acute (3) Hyponatremia Status: Acute (4) Generalized weakness Status: Acute (5) Mass of right lung Status: Acute (6) BPH (benign prostatic hyperplasia) Status: Chronic Qualifiers: Lower urinary tract symptom presence: unspecified whether lower urinary tract symptoms present Plan: CONTINUE TAMSULOSIN (7) GERD (gastroesophageal reflux disease) Status: Chronic Qualifiers: Esophagitis presence: esophagitis presence not specified Plan: CONTINUE PANTOPRAZOLE (8) Generalized anxiety disorder Status: Chronic Plan: CONTINUE LORAZEPAM (9) CAD (coronary artery disease) Status: Chronic Qualifiers: Coronary Disease-Associated Artery/Lesion type: bypass graft [place] vs. transplanted heart: [place] heart Associated angina: unspecified whether angina present Qualified Code(s): I25.810 - Atherosclerosis of coronary artery bypass graft(s) without angina pectoris Plan: CONTINUE ELIQUIS (10) Gastroparesis Status: Chronic Plan: CONTINUE METOCLOPRAMIDE
[2023-04-06] MEDS: PULMICORT NEB TX 0.5 MG NEB SCH ×2 (10:51→20:08)
[2023-04-06] MEDS: XOPENEX 1.25 MG/3 ML NEBULE NEB SCH ×3 (10:51→20:08)
[2023-04-06] MEDS: ALBUMIN HUMAN 25%- 100 ML 100 ML IV SCH (11:02)
[2023-04-06] MEDS: NS 1,000 ML IV 1,000 ML IV SCH ×3 (13:57→21:03)
[2023-04-06] MEDS: ROXICODONE TAB 15 MG PO PRN (21:05)
[2023-04-07] MEDS: TORADOL 30 MG VIAL IVP SCH ×3 (01:36→18:22)
[2023-04-07] MEDS: MILK OF MAGNESIA PO SCH ×2 (04:59→17:08)
[2023-04-07] MEDS: FORTAZ or TAZICEF VIAL INJ 1 G in NS 100 ML IV 100 ML IV SCH ×3 (05:00→21:04)
[2023-04-07] MEDS: NEURONTIN CAP 400 MG PO SCH ×3 (05:00→21:04)
[2023-04-07] MEDS: ROXICODONE TAB 15 MG PO PRN ×3 (05:02→21:58)
--- NOTE | 2023-04-07 05:17 | RAD ---
HISTORYSOBSTUDYCHEST, 1 [id number] cardiomediastinal silhouette is stable. Similar post sternotomy changes. No acute airspace disease. No pneumothorax or effusion. The bony thorax appears intact.IMPRESSIONNo acute cardiopulmonary disease.Electronically signed by: NANCY RINALDI (Apr 07, 2023 05:16:15)
[2023-04-07] MEDS: REGLAN TAB 10 MG PO SCH ×4 (05:31→20:29)
[2023-04-07] MEDS: NS 1,000 ML IV 1,000 ML IV SCH ×5 (05:32→22:20)
[2023-04-07] MEDS: XOPENEX 1.25 MG/3 ML NEBULE NEB SCH ×3 (05:50→21:20)
[2023-04-07 06:24] LABS: BASOPHILS # (AUTO) 0.2 X10^3/uL (0.0-0.1); BASOPHILS % (AUTO) 0.9 % (0.2-1.0); EOSINOPHILS # (AUTO) 0.1 x10^3/uL (0.0-0.2); EOSINOPHILS % (AUTO) 0.7 % (0.9-2.9); HEMATOCRIT 31.9 % (42.0-54.0); HEMOGLOBIN 10.3 g/dL (13.5-18.0); LYMPHOCYTES # (AUTO) 2.3 X10^3/uL (1.3-2.9); LYMPHOCYTES % (AUTO) 11.5 % (21.0-51.0); MEAN CORPUSCULAR HEMOGLOBIN 25.6 pg (27.0-34.0); MEAN CORPUSCULAR HGB CONC 32.2 g/dL (33.0-35.0); MEAN CORPUSCULAR VOLUME 79.5 fL (80.0-100.0); MEAN PLATELET VOLUME 9.5 fL (7.4-11.0); MONOCYTES # (AUTO) 1.4 x10^3/uL (0.3-0.8); NEUTROPHILS % (AUTO) 79.9 % (42.0-75.0); PLATELET COUNT 447 X10^3/uL (150.0-450.0); RED BLOOD COUNT 4.01 X10^6/uL (4.7-6.0); RED CELL DISTRIBUTION WIDTH 15.1 % (11.6-16.5)
[2023-04-07 06:49] LABS: ALANINE AMINOTRANSFERASE 22 Units/L (12-78); ALBUMIN 2.1 g/dL (3.4-5.0); ALKALINE PHOSPHATASE 96 Units/L (46-116); ASPARTATE AMINO TRANSFERASE 34 Units/L (15-37); BLOOD UREA NITROGEN 18 mg/dL (7-18); CARBON DIOXIDE 24.4 mmol/L (21-32); CHLORIDE 102 mmol/L (98-107); COR CA(FOR HYPOALB) 14.3 mg/dL (8.5-10.1); CREATININE 0.99 mg/dL (0.70-1.30); GLUCOSE 108 mg/dL (65-99); POTASSIUM 4.5 mmol/L (3.5-5.1); SODIUM 134 mmol/L (136-145); TOTAL PROTEIN 5.8 g/dL (6.4-8.2); eGFR NON BLACK RACES > 60 (>60)
[2023-04-07 07:02] LABS: CALCIUM 12.8 mg/dL (8.5-10.1)
[2023-04-07] MEDS: LEVAQUIN PREMIX IV 500 MG 500 MG/100 ML BAG IV SCH (08:48)
[2023-04-07] MEDS: ELIQUIS PO SCH ×2 (08:49→21:03)
[2023-04-07] MEDS: PROTONIX TAB 40 MG PO SCH (08:49)
[2023-04-07] MEDS: COLACE CAP 100 MG PO SCH ×2 (08:49→21:03)
[2023-04-07] MEDS: FLOMAX PO SCH (08:49)
[2023-04-07] MEDS: LASIX IVP SCH ×2 (08:49→17:09)
[2023-04-07] MEDS: NICOTINE PATCH TD SCH (08:51)
[2023-04-07] MEDS: CHRONULAC PO SCH ×2 (08:52→21:03)
[2023-04-07] MEDS: CHECK PATCH XX SCH ×2 (08:52→21:03)
[2023-04-07] MEDS: PULMICORT NEB TX 0.5 MG NEB SCH ×2 (09:01→21:20)
[2023-04-07] MEDS: ALBUMIN HUMAN 25%- 100 ML 100 ML IV SCH (10:23)
[2023-04-07] MEDS: ATIVAN TAB 1 MG PO PRN (17:09)
[2023-04-08] MEDS: NS 1,000 ML IV 1,000 ML IV SCH ×4 (00:12→19:11)
[2023-04-08] MEDS: TORADOL 30 MG VIAL IVP SCH (01:57)
[2023-04-08] MEDS: ROXICODONE TAB 15 MG PO PRN ×3 (03:34→15:24)
[2023-04-08] MEDS: MILK OF MAGNESIA PO SCH ×2 (05:11→18:19)
[2023-04-08] MEDS: FORTAZ or TAZICEF VIAL INJ 1 G in NS 100 ML IV 100 ML IV SCH ×3 (05:12→21:06)
[2023-04-08] MEDS: NEURONTIN CAP 400 MG PO SCH ×3 (05:12→21:06)
[2023-04-08] MEDS: REGLAN TAB 10 MG PO SCH ×4 (05:30→21:06)
--- NOTE | 2023-04-08 05:52 | RAD ---
HISTORYSOBSTUDYCHEST, 1 [id number] cardiomediastinal silhouette is stable. Similar post sternotomy changes. Right basilar atelectasis. No acute airspace disease. No pneumothorax or effusion. The bony thorax appears intact.IMPRESSIONNo acute cardiopulmonary disease.Electronically signed by: NANCY RINALDI (Apr 08, 2023 05:44:32)
[2023-04-08] MEDS: XOPENEX 1.25 MG/3 ML NEBULE NEB SCH ×3 (06:10→21:22)
[2023-04-08 06:11] LABS: ALANINE AMINOTRANSFERASE 20 Units/L (12-78); ALBUMIN 2.1 g/dL (3.4-5.0); ALKALINE PHOSPHATASE 85 Units/L (46-116); ASPARTATE AMINO TRANSFERASE 30 Units/L (15-37); BLOOD UREA NITROGEN 15 mg/dL (7-18); CARBON DIOXIDE 27.3 mmol/L (21-32); CHLORIDE 102 mmol/L (98-107); COR CA(FOR HYPOALB) 14.9 mg/dL (8.5-10.1); CREATININE 1.01 mg/dL (0.70-1.30); GLUCOSE 103 mg/dL (65-99); POTASSIUM 4.6 mmol/L (3.5-5.1); SODIUM 134 mmol/L (136-145); TOTAL PROTEIN 5.7 g/dL (6.4-8.2); eGFR NON BLACK RACES > 60 (>60)
[2023-04-08 06:14] LABS: CALCIUM 13.4 mg/dL (8.5-10.1)
[2023-04-08 06:24] LABS: BASOPHILS # (AUTO) 0.2 X10^3/uL (0.0-0.1); BASOPHILS % (AUTO) 0.9 % (0.2-1.0); EOSINOPHILS # (AUTO) 0.2 x10^3/uL (0.0-0.2); EOSINOPHILS % (AUTO) 1.1 % (0.9-2.9); HEMOGLOBIN 9.7 g/dL (13.5-18.0); LYMPHOCYTES % (AUTO) 9.9 % (21.0-51.0); MEAN CORPUSCULAR HEMOGLOBIN 26.4 pg (27.0-34.0); MEAN CORPUSCULAR HGB CONC 33.3 g/dL (33.0-35.0); MEAN CORPUSCULAR VOLUME 79.1 fL (80.0-100.0); MEAN PLATELET VOLUME 9.5 fL (7.4-11.0); MONOCYTES # (AUTO) 1.4 x10^3/uL (0.3-0.8); MONOCYTES % (AUTO) 7.1 % (0.0-13.0); PLATELET COUNT 486 X10^3/uL (150.0-450.0); RED BLOOD COUNT 3.67 X10^6/uL (4.7-6.0); RED CELL DISTRIBUTION WIDTH 15.1 % (11.6-16.5); WHITE BLOOD COUNT 19.7 X10^3/uL (3.6-10.0)
[2023-04-08] MEDS: ATIVAN TAB 1 MG PO PRN (07:40)
[2023-04-08] MEDS: PULMICORT NEB TX 0.5 MG NEB SCH ×2 (08:18→21:22)
--- NOTE | 2023-04-08 08:18 | PCM.PROG ---
Progress Note - Progress Note for Day of Date of Exam: 04/07/23 - Subjective Subjective: IS CURRENTLY INPATIENT STATUS. HE IS CURRENTLY BEING TREATED FOR PNEUMONIA, HYPERCALCEMIA, HYPERKALEMIA, HYPONATREMIA, AND NEWLY DIAGNOSED METASTATIC DISEASE. PRIMARY IS IN THE LUNGS. THERE ARE ADRENAL AND RENAL LESIONS. HE HAD AN APPOINTMENT SCHEDULED WITH FOR THIS WEEK, BUT APPOINTMENT WAS RESCHEDULED FOR NEXT THURSDAY. HE HAS A PMH OF COPD, CAD, DYSLIPIDEMIA, GASTROPARESIS, CABG. TODAY, HE IS LYING IN BED WITH EYES CLOSED ON MORNING ROUNDS. HE DOES AWAKEN TO VERBAL STIMULI. HE IS ABLE TO ANSWER QUESTIONS AND FOLLOW COMMANDS APPROPRIATELY THIS MORNING. HE CONTINUES TO COMPLAIN OF WEAKNESS, OCCASIONAL SHORTNESS OF BREATH, DECREASED APPETITE, NAUSEA, AND GENERALIZED PAIN THIS MORNING. HE ONLY REPORTS MILD IMPROVEMENT IN SYMPTOMS SINCE ADMISSION. ON EXAMINATION, HEART IS REGULAR IN RATE AND RHYTHM. BILATERAL LUNGS ARE NOTED WITH DIMINISHED LUNG SOUNDS THROUGHOUT. ABDOMEN IS ROUND, SOFT, AND NON-TENDER WITH HYPERACTIVE BOWEL SOUNDS NOTED IN ALL QUADRANTS. GOOD MOVEM ENT NOTED TO UPPER AND LOWER EXTREMITIES WITH NO EDEMA NOTED. A FREEDMAN CATHETER IS NOTED TO BEDSIDE DRAINAGE. HIS VITALS THIS MORNING ARE: 98.8-99-18-97%-117/58. LABS WERE OBTAINED. WBC 20.0, RBC 4.01, HGB 10.3, HCT 31.9, PLT COUNT 447, SODIUM 134, POTASSIUM 4.5, CHLORIDE 102, CARBON DIOXIDE 24.4, BUN 18, CREATININE 0.99, GLUCOSE 108, CALCIUM 12.8, AST 34, ALT 22, ALK PHOS 96, TOTAL PROTEIN 5.8, ALBUMIN 2.1. BLOOD AND URINE CULTURES ARE PENDING. RESPIRATORY PANEL IS NEGATIVE. A CHEST XRAY WAS REPEATED THIS MORNING. IT REVEALED: The. cardiomediastinal silhouette is stable. Similar post sternotomy changes. No acute airspace disease. No pneumothorax or effusion. The bony thorax appears intact. HE IS CURRENTLY RECEIVING NORMAL SALINE AT 125 ML/HR, ALBUMIN 25% IV DAILY, FORTAZ 1G IV Q8H, LEVAQUIN 500MG IV DAILY, XOPENEX NEBS TID, PULMICORT NEBS BID, LASIX 20MG IV BID, TORADOL 30MG IV Q8H, MILK OF MAGNESIA 30ML Q12H, AND A NICOTINE PATCH. HIS HOME MEDICATIONS OF ELIQUIS, NEURONITIN, LACTULOSE, LORAZEPAM, METOCLOPRAMIDE, OXYCODONE, PANTOPRAZOLE, AND TAMSULOSIN WERE RESUMED. WE WILL HAVE PT/OT WORK WITH HIM TODAY. OTHERWISE, WE WILL FOLLOW UP WITH AM LABS AND CONTINUE TO MONITOR. TIME SPENT ON CLINICAL ASSESSMENT, REVIEWING LABS AND IMAGING, DECISION MAKING, AND DOCUMENTATION GREATER THAN 45 MINUTES. - Past Medical Family Social History Past Med/Fam/Surg Hx: No changes since H&P Allergies: Allergies No Known Drug Allergies Allergy (Verified 03/25/23 08:37) - Review of Systems ROS: No change since H&P - Vital Signs and I&O's Vital Signs: Vital Signs Temperature 98.2 F Pulse Rate [Left Radial] 93 Respiratory Rate 18 Respiratory Rate 20 Respiratory Rate 18 Respiratory Rate 20 Respiratory Rate 16 Blood Pressure [Right Arm] 158/70 O2 Sat by Pulse Oximetry 97 Intake and Output: Intake & Output 04/05/23 04/06/23 04/07/23 04/08/23 11:59 11:59 11:59 11:59 Intake Total 3844 / 3844 5026 / 5026 3684 / 3684 4588 / 4588 Output Total 1700 / 1700 3650 / 3650 700 / 700 2361 / 2361 Balance 2144 / 2144 1376 / 1376 2984 / 2984 2227 / 2227 - Physical Exam Oriented: Normal Eyes: Normal Ear: Normal Nose: Normal Throat: Normal Respiratory: Diminished Cardiovascular: Normal : Normal Auscultation: Bowel Sounds: Normal Tenderness: Normal Skin: Normal Musculoskeletal: Normal Psychiatric: Normal Mood Description: Calm Affect: Normal Speech Pattern: Clear, Appropriate - Laboratory and Diagnostics Result Diagrams: 04/08/23 05:18 04/08/23 05:18 Labs: 04/02/23 09:21 Blood Blood Culture - Final 04/02/23 09:05 Blood Blood Culture - Final 04/07/23 06:15 Stool - Final 04/03/23 02:12 Urine,Clean Catch Urine Culture - Final Laboratory WBC 19.7 X10^3/uL (3.6-10.0) H 04/08/23 05:18 RBC 3.67 X10^6/uL (4.7-6.0) L 04/08/23 05:18 Hgb 9.7 g/dL (13.5-18.0) L 04/08/23 05:18 Hct 29.0 % (42.0-54.0) L 04/08/23 05:18 MCV 79.1 fL (80.0-100.0) L 04/08/23 05:18 MCH 26.4 pg (27.0-34.0) L 04/08/23 05:18 MCHC 33.3 g/dL (33.0-35.0) 04/08/23 05:18 RDW 15.1 % (11.6-16.5) 04/08/23 05:18 Plt Count 486 X10^3/uL (150.0-450.0) H 04/08/23 05:18 MPV 9.5 fL (7.4-11.0) 04/08/23 05:18 Neut % (Auto) 81.0 % (42.0-75.0) H 04/08/23 05:18 Lymph % (Auto) 9.9 % (21.0-51.0) L 04/08/23 05:18 [place] % (Auto) 7.1 % (0.0-13.0) 04/08/23 05:18 Eos % (Auto) 1.1 % (0.9-2.9) 04/08/23 05:18 Baso % (Auto) 0.9 % (0.2-1.0) 04/08/23 05:18 Neut # (Auto) 16.0 x10^3/uL (2.2-4.8) H 04/08/23 05:18 Lymph # (Auto) 2.0 X10^3/uL (1.3-2.9) 04/08/23 05:18 [place] # (Auto) 1.4 x10^3/uL (0.3-0.8) H 04/08/23 05:18 Eos # (Auto) 0.2 x10^3/uL (0.0-0.2) 04/08/23 05:18 Baso # (Auto) 0.2 X10^3/uL (0.0-0.1) H 04/08/23 05:18 Absolute Nucleated RBC 0.0 /100WBC 04/08/23 05:18 Sodium 134 mmol/L (136-145) L 04/08/23 05:18 Corrected Sodium TNP 04/08/23 05:18 Potassium 4.6 mmol/L (3.5-5.1) 04/08/23 05:18 Chloride 102 mmol/L (98-107) 04/08/23 05:18 Carbon Dioxide 27.3 mmol/L (21-32) 04/08/23 05:18 BUN 15 mg/dL (7-18) 04/08/23 05:18 Creatinine 1.01 mg/dL (0.70-1.30) 04/08/23 05:18 Est GFR (MDRD) Af Amer > 60 (>60) 04/08/23 05:18 Est GFR (MDRD) Non-Af > 60 (>60) 04/08/23 05:18 Glucose 103 mg/dL (65-99) H 04/08/23 05:18 POC Glucose (mg/dL) 97 mg/dL (65-99) 04/08/23 05:08 Calcium 13.4 mg/dL (8.5-10.1) H* 04/08/23 05:18 Corrected Calcium 14.9 mg/dL (8.5-10.1) H 04/08/23 05:18 Total Bilirubin 0.40 mg/dL (0.2-1.0) 04/08/23 05:18 AST 30 Units/L (15-37) 04/08/23 05:18 ALT 20 Units/L (12-78) 04/08/23 05:18 Alkaline Phosphatase 85 Units/L (46-116) 04/08/23 05:18 Total Protein 5.7 g/dL (6.4-8.2) L 04/08/23 05:18 Albumin 2.1 g/dL (3.4-5.0) L 04/08/23 05:18 Globulin 3.6 g/dL (2.5-4.5) 04/08/23 05:18 Albumin/Globulin Ratio 0.6 Ratio (1.1-2.1) L 04/08/23 05:18 Lipase 166 Units/L (73-393) 04/01/23 12:50 Specimen Type Clean catch urine 04/01/23 13:41 Urine Color Yellow (YELLOW) 04/01/23 13:41 Urine Appearance Clear (CLEAR) 04/01/23 13:41 Urine pH 6.0 (5.0 - 8.0) 04/01/23 13:41 Ur Specific [place] 1.020 (1.000-1.030) 04/01/23 13:41 Urine Protein 1+ (NEGATIVE) 04/01/23 13:41 Urine Glucose (UA) Negative (NEGATIVE) 04/01/23 13:41 Urine Ketones Negative (NEGATIVE) 04/01/23 13:41 Urine Blood Negative (NEGATIVE) 04/01/23 13:41 Urine Nitrite Negative (NEGATIVE) 04/01/23 13:41 Urine Bilirubin Negative (NEGATIVE) 04/01/23 13:41 Urine Urobilinogen Normal (NORMAL) 04/01/23 13:41 Ur Leukocyte Esterase Negative (NEGATIVE) 04/01/23 13:41 Urine RBC 0-2 /HPF (0-3) 04/01/23 13:41 Urine WBC 0-2 /HPF (0-5) 04/01/23 13:41 Ur Squamous Epith Cells Rare /HPF (NEGATIVE) 04/01/23 13:41 Urine Bacteria Trace /HPF (NEGATIVE) 04/01/23 13:41 Hyaline Casts Rare /LPF (NEGATIVE) 04/01/23 13:41 Ur Culture Indicated? No/not indicated 04/01/23 13:41 Resp Viral Panel (PCR) See scanned report 04/02/23 14:54 SARS CoV-2 RNA Rapid [place] Negative (NEGATIVE) 04/01/23 10:40 - Plan (1) Pneumonia Status: Acute Qualifiers: Pneumonia type: due to unspecified organism Laterality: right Lung location: lower lobe of lung Qualified Code(s): J18.9 - Pneumonia, unspecified organism Plan: NORMAL SALINE AT 125 ML/HR, ALBUMIN 25% IV DAILY, PULMICORT NEBS BID, XOPENEX NEBS TID, FORTAZ 1G IV Q8H, LEVAQUIN 500MG IV DAILY, LASIX 20MG IV BID, AND A NICOTINE PATCH. RESUME HOME MEDS (2) Hypercalcemia Status: Acute (3) Hyponatremia Status: Acute (4) Generalized weakness Status: Acute (5) Mass of right lung Status: Acute (6) BPH (benign prostatic hyperplasia) Status: Chronic Qualifiers: Lower urinary tract symptom presence: unspecified whether lower urinary tract symptoms present Plan: CONTINUE TAMSULOSIN (7) GERD (gastroesophageal reflux disease) Status: Chronic Qualifiers: Esophagitis presence: esophagitis presence not specified Plan: CONTINUE PANTOPRAZOLE (8) Generalized anxiety disorder Status: Chronic Plan: CONTINUE LORAZEPAM (9) CAD (coronary artery disease) Status: Chronic Qualifiers: Coronary Disease-Associated Artery/Lesion type: bypass graft [place] vs. transplanted heart: [place] heart Associated angina: unspecified whether angina present Qualified Code(s): I25.810 - Atherosclerosis of coronary artery bypass graft(s) without angina pectoris Plan: CONTINUE ELIQUIS (10) Gastroparesis Status: Chronic Plan: CONTINUE METOCLOPRAMIDE
[2023-04-08] MEDS: ELIQUIS PO SCH ×2 (08:26→21:06)
[2023-04-08] MEDS: FLOMAX PO SCH (08:26)
[2023-04-08] MEDS: COLACE CAP 100 MG PO SCH ×2 (08:26→21:06)
[2023-04-08] MEDS: ALBUMIN HUMAN 25%- 100 ML 100 ML IV SCH (08:29)
[2023-04-08] MEDS: LEVAQUIN PREMIX IV 500 MG 500 MG/100 ML BAG IV SCH (08:29)
[2023-04-08] MEDS: NICOTINE PATCH TD SCH (08:29)
--- NOTE | 2023-04-08 09:02 | PCM.PROG ---
Progress Note - Progress Note for Day of Date of Exam: 04/08/23 - Subjective Subjective: IS CURRENTLY INPATIENT STATUS. HE IS CURRENTLY BEING TREATED FOR PNEUMONIA, HYPERCALCEMIA, HYPERKALEMIA, HYPONATREMIA, AND NEWLY DIAGNOSED METASTATIC DISEASE. PRIMARY IS IN THE LUNGS. THERE ARE ADRENAL AND RENAL LESIONS. HE HAD AN APPOINTMENT SCHEDULED WITH FOR THIS WEEK, BUT APPOINTMENT WAS RESCHEDULED FOR NEXT THURSDAY. HE HAS A PMH OF COPD, CAD, DYSLIPIDEMIA, GASTROPARESIS, CABG. TODAY, HE IS LYING IN BED WITH EYES CLOSED ON MORNING ROUNDS. HE DOES AWAKEN TO VERBAL STIMULI. HE IS ABLE TO ANSWER QUESTIONS AND FOLLOW COMMANDS APPROPRIATELY THIS MORNING. HE CONTINUES TO COMPLAIN OF WEAKNESS, OCCASIONAL SHORTNESS OF BREATH, DECREASED APPETITE, NAUSEA, AND GENERALIZED PAIN THIS MORNING. HE ONLY REPORTS MILD IMPROVEMENT IN SYMPTOMS SINCE ADMISSION. ON EXAMINATION, HEART IS REGULAR IN RATE AND RHYTHM. BILATERAL LUNGS ARE NOTED WITH DIMINISHED LUNG SOUNDS THROUGHOUT. ABDOMEN IS ROUND, SOFT, AND NON-TENDER WITH HYPERACTIVE BOWEL SOUNDS NOTED IN ALL QUADRANTS. GOOD MOVEM ENT NOTED TO UPPER AND LOWER EXTREMITIES WITH NO EDEMA NOTED. A FREEDMAN CATHETER IS NOTED TO BEDSIDE DRAINAGE. HIS VITALS THIS MORNING ARE: 98.2-93-20-97%-158/70. LABS WERE OBTAINED. WBC 19.7, RBC 3.67, HGB 9.7, PLT COUNT 486, SODIUM 134, POTASSIUM 4.6, CHLORIDE 102, CARBON DIOXIDE 27.3, BUN 15, CREATININE 1.01, GLUCOSE 103, CALCIUM 13.4, AST 30, ALT 20, ALK PHOS 85, TOTAL PROTEIN 5.7, ALBUMIN 2.1. BLOOD AND URINE CULTURES ARE PENDING. RESPIRATORY PANEL IS NEGATIVE. A CHEST XRAY WAS REPEATED THIS MORNING. IT REVEALED: The cardiomediastinal silhouette is stable. Similar post sternotomy changes. Right basilar atelectasis. No acute airspace disease. No pneumothorax or effusion. The bony thorax appears intact. HE IS CURRENTLY RECEIVING NORMAL SALINE AT 125 ML/HR, ALBUMIN 25% IV DAILY, FORTAZ 1G IV Q8H, LEVAQUIN 500MG IV DAILY, XOPENEX NEBS TID, PULMICORT NEBS BID, LASIX 20MG IV BID, TORADOL 30MG IV Q8H, MILK OF MAGNESIA 30ML Q12H, AND A NICOTINE PATCH. HIS HOME MEDICATIONS OF ELIQUIS, NEURONITIN, LACTULOSE, LORAZEPAM, METOCLOPRAMIDE, OXYCODONE, PANTOPRAZOLE, AND TAMSULOSIN WERE RESUMED. WE WILL HAVE PT/OT WORK WITH HIM TODAY. OTHERWISE, WE WILL FOLLOW UP WITH AM LABS AND CONTINUE TO MONITOR. TIME SPENT ON CLINICAL ASSESSMENT, REVIEWING LABS AND IMAGING, DECISION MAKING, AND DOCUMENTATION GREATER THAN 45 MINUTES. - Past Medical Family Social History Past Med/Fam/Surg Hx: No changes since H&P Allergies: Allergies No Known Drug Allergies Allergy (Verified 03/25/23 08:37) - Review of Systems ROS: No change since H&P - Vital Signs and I&O's Vital Signs: Vital Signs Temperature 98.2 F Pulse Rate [Left Radial] 93 Pulse Rate 101 Respiratory Rate 18 Respiratory Rate 18 Respiratory Rate 20 Respiratory Rate 18 Respiratory Rate 20 Respiratory Rate 16 Blood Pressure [Right Arm] 158/70 O2 Sat by Pulse Oximetry 92 O2 Sat by Pulse Oximetry 97 Intake and Output: Intake & Output 04/05/23 04/06/23 04/07/23 04/08/23 11:59 11:59 11:59 11:59 Intake Total 3844 / 3844 5026 / 5026 3684 / 3684 4588 / 4588 Output Total 1700 / 1700 3650 / 3650 700 / 700 2361 / 2361 Balance 2144 / 2144 1376 / 1376 2984 / 2984 2227 / 2227 - Physical Exam Oriented: Normal Eyes: Normal Ear: Normal Nose: Normal Throat: Normal Respiratory: Diminished Cardiovascular: Normal : Normal Auscultation: Bowel Sounds: Normal Tenderness: Normal Skin: Normal Musculoskeletal: Normal Psychiatric: Normal Mood Description: Calm Affect: Normal Speech Pattern: Clear, Appropriate - Laboratory and Diagnostics Result Diagrams: 04/08/23 05:18 04/08/23 05:18 Labs: 04/02/23 09:21 Blood Blood Culture - Final 04/02/23 09:05 Blood Blood Culture - Final 04/07/23 06:15 Stool - Final 04/03/23 02:12 Urine,Clean Catch Urine Culture - Final Laboratory WBC 19.7 X10^3/uL (3.6-10.0) H 04/08/23 05:18 RBC 3.67 X10^6/uL (4.7-6.0) L 04/08/23 05:18 Hgb 9.7 g/dL (13.5-18.0) L 04/08/23 05:18 Hct 29.0 % (42.0-54.0) L 04/08/23 05:18 MCV 79.1 fL (80.0-100.0) L 04/08/23 05:18 MCH 26.4 pg (27.0-34.0) L 04/08/23 05:18 MCHC 33.3 g/dL (33.0-35.0) 04/08/23 05:18 RDW 15.1 % (11.6-16.5) 04/08/23 05:18 Plt Count 486 X10^3/uL (150.0-450.0) H 04/08/23 05:18 MPV 9.5 fL (7.4-11.0) 04/08/23 05:18 Neut % (Auto) 81.0 % (42.0-75.0) H 04/08/23 05:18 Lymph % (Auto) 9.9 % (21.0-51.0) L 04/08/23 05:18 [place] % (Auto) 7.1 % (0.0-13.0) 04/08/23 05:18 Eos % (Auto) 1.1 % (0.9-2.9) 04/08/23 05:18 Baso % (Auto) 0.9 % (0.2-1.0) 04/08/23 05:18 Neut # (Auto) 16.0 x10^3/uL (2.2-4.8) H 04/08/23 05:18 Lymph # (Auto) 2.0 X10^3/uL (1.3-2.9) 04/08/23 05:18 [place] # (Auto) 1.4 x10^3/uL (0.3-0.8) H 04/08/23 05:18 Eos # (Auto) 0.2 x10^3/uL (0.0-0.2) 04/08/23 05:18 Baso # (Auto) 0.2 X10^3/uL (0.0-0.1) H 04/08/23 05:18 Absolute Nucleated RBC 0.0 /100WBC 04/08/23 05:18 Sodium 134 mmol/L (136-145) L 04/08/23 05:18 Corrected Sodium TNP 04/08/23 05:18 Potassium 4.6 mmol/L (3.5-5.1) 04/08/23 05:18 Chloride 102 mmol/L (98-107) 04/08/23 05:18 Carbon Dioxide 27.3 mmol/L (21-32) 04/08/23 05:18 BUN 15 mg/dL (7-18) 04/08/23 05:18 Creatinine 1.01 mg/dL (0.70-1.30) 04/08/23 05:18 Est GFR (MDRD) Af Amer > 60 (>60) 04/08/23 05:18 Est GFR (MDRD) Non-Af > 60 (>60) 04/08/23 05:18 Glucose 103 mg/dL (65-99) H 04/08/23 05:18 POC Glucose (mg/dL) 97 mg/dL (65-99) 04/08/23 05:08 Calcium 13.4 mg/dL (8.5-10.1) H* 04/08/23 05:18 Corrected Calcium 14.9 mg/dL (8.5-10.1) H 04/08/23 05:18 Total Bilirubin 0.40 mg/dL (0.2-1.0) 04/08/23 05:18 AST 30 Units/L (15-37) 04/08/23 05:18 ALT 20 Units/L (12-78) 04/08/23 05:18 Alkaline Phosphatase 85 Units/L (46-116) 04/08/23 05:18 Total Protein 5.7 g/dL (6.4-8.2) L 04/08/23 05:18 Albumin 2.1 g/dL (3.4-5.0) L 04/08/23 05:18 Globulin 3.6 g/dL (2.5-4.5) 04/08/23 05:18 Albumin/Globulin Ratio 0.6 Ratio (1.1-2.1) L 04/08/23 05:18 Lipase 166 Units/L (73-393) 04/01/23 12:50 Specimen Type Clean catch urine 04/01/23 13:41 Urine Color Yellow (YELLOW) 04/01/23 13:41 Urine Appearance Clear (CLEAR) 04/01/23 13:41 Urine pH 6.0 (5.0 - 8.0) 04/01/23 13:41 Ur Specific [place] 1.020 (1.000-1.030) 04/01/23 13:41 Urine Protein 1+ (NEGATIVE) 04/01/23 13:41 Urine Glucose (UA) Negative (NEGATIVE) 04/01/23 13:41 Urine Ketones Negative (NEGATIVE) 04/01/23 13:41 Urine Blood Negative (NEGATIVE) 04/01/23 13:41 Urine Nitrite Negative (NEGATIVE) 04/01/23 13:41 Urine Bilirubin Negative (NEGATIVE) 04/01/23 13:41 Urine Urobilinogen Normal (NORMAL) 04/01/23 13:41 Ur Leukocyte Esterase Negative (NEGATIVE) 04/01/23 13:41 Urine RBC 0-2 /HPF (0-3) 04/01/23 13:41 Urine WBC 0-2 /HPF (0-5) 04/01/23 13:41 Ur Squamous Epith Cells Rare /HPF (NEGATIVE) 04/01/23 13:41 Urine Bacteria Trace /HPF (NEGATIVE) 04/01/23 13:41 Hyaline Casts Rare /LPF (NEGATIVE) 04/01/23 13:41 Ur Culture Indicated? No/not indicated 04/01/23 13:41 Resp Viral Panel (PCR) See scanned report 04/02/23 14:54 SARS CoV-2 RNA Rapid [place] Negative (NEGATIVE) 04/01/23 10:40 - Plan (1) Pneumonia Status: Acute Qualifiers: Pneumonia type: due to unspecified organism Laterality: right Lung location: lower lobe of lung Qualified Code(s): J18.9 - Pneumonia, unspecified organism Plan: NORMAL SALINE AT 125 ML/HR, ALBUMIN 25% IV DAILY, PULMICORT NEBS BID, XOPENEX NEBS TID, FORTAZ 1G IV Q8H, LEVAQUIN 500MG IV DAILY, LASIX 20MG IV BID, AND A NICOTINE PATCH. RESUME HOME MEDS (2) Hypercalcemia Status: Acute (3) Hyponatremia Status: Acute (4) Generalized weakness Status: Acute (5) Mass of right lung Status: Acute (6) BPH (benign prostatic hyperplasia) Status: Chronic Qualifiers: Lower urinary tract symptom presence: unspecified whether lower urinary tract symptoms present Plan: CONTINUE TAMSULOSIN (7) GERD (gastroesophageal reflux disease) Status: Chronic Qualifiers: Esophagitis presence: esophagitis presence not specified Plan: CONTINUE PANTOPRAZOLE (8) Generalized anxiety disorder Status: Chronic Plan: CONTINUE LORAZEPAM (9) CAD (coronary artery disease) Status: Chronic Qualifiers: Coronary Disease-Associated Artery/Lesion type: bypass graft [place] vs. transplanted heart: [place] heart Associated angina: unspecified whether angina present Qualified Code(s): I25.810 - Atherosclerosis of coronary artery bypass graft(s) without angina pectoris Plan: CONTINUE ELIQUIS (10) Gastroparesis Status: Chronic Plan: CONTINUE METOCLOPRAMIDE
[2023-04-08] MEDS: CHECK PATCH XX SCH ×2 (09:30→21:05)
[2023-04-08] MEDS: CHRONULAC PO SCH ×2 (09:31→21:06)
[2023-04-08] MEDS: LASIX IVP SCH ×2 (09:35→18:09)
[2023-04-08] MEDS: PROTONIX TAB 40 MG PO SCH (09:35)
[2023-04-09] MEDS: NS 1,000 ML IV 1,000 ML IV SCH ×2 (01:30→03:20)
[2023-04-09] MEDS: FORTAZ or TAZICEF VIAL INJ 1 G in NS 100 ML IV 100 ML IV SCH (05:39)
[2023-04-09] MEDS: NEURONTIN CAP 400 MG PO SCH (05:39)
[2023-04-09] MEDS: REGLAN TAB 10 MG PO SCH (05:39)
[2023-04-09] MEDS: MILK OF MAGNESIA PO SCH (05:43)
[2023-04-09] MEDS: XOPENEX 1.25 MG/3 ML NEBULE NEB SCH (05:55)
[2023-04-09 06:02] LABS: BASOPHILS # (AUTO) 0.1 X10^3/uL (0.0-0.1); BASOPHILS % (AUTO) 0.7 % (0.2-1.0); EOSINOPHILS # (AUTO) 0.1 x10^3/uL (0.0-0.2); EOSINOPHILS % (AUTO) 0.6 % (0.9-2.9); HEMATOCRIT 28.3 % (42.0-54.0); HEMOGLOBIN 9.2 g/dL (13.5-18.0); LYMPHOCYTES # (AUTO) 1.8 X10^3/uL (1.3-2.9); LYMPHOCYTES % (AUTO) 7.9 % (21.0-51.0); MEAN CORPUSCULAR HEMOGLOBIN 25.9 pg (27.0-34.0); MEAN CORPUSCULAR HGB CONC 32.6 g/dL (33.0-35.0); MEAN CORPUSCULAR VOLUME 79.4 fL (80.0-100.0); MEAN PLATELET VOLUME 9.2 fL (7.4-11.0); MONOCYTES # (AUTO) 1.7 x10^3/uL (0.3-0.8); MONOCYTES % (AUTO) 7.7 % (0.0-13.0); NEUTROPHILS # (AUTO) 18.7 x10^3/uL (2.2-4.8); NEUTROPHILS % (AUTO) 83.1 % (42.0-75.0); PLATELET COUNT 522 X10^3/uL (150.0-450.0); RED BLOOD COUNT 3.56 X10^6/uL (4.7-6.0); RED CELL DISTRIBUTION WIDTH 14.6 % (11.6-16.5); WHITE BLOOD COUNT 22.5 X10^3/uL (3.6-10.0)
--- NOTE | 2023-04-09 06:06 | RAD ---
HISTORYABDOMINAL [id number]/24/2023 br.br.br.br nonobstructive bowel gas pattern. No pathological soft tissue mass or calcification can be observed. The bony structures are grossly intact.IMPRESSIONNo evidence for acute abdominal pathology identified.Electronically signed by: NANCY RINALDI (Apr 09, 2023 06:05:05)
--- NOTE | 2023-04-09 06:07 | RAD ---
HISTORYSOBSTUDYPortable AP chestCOMPARISONAugust 2022FINDINGSHeart size remains normal with sternal wires and clear left lung. There is no change in appearance of the localized airspace density in the medial right lower lobe. The right upper lung is clear.IMPRESSIONNo change or new abnormality noted. Stable right basal density which may reflect a focus of atelectasis or pneumonia. This finding has been noted for a prolonged period of time; consider chest CT for more definitive diagnosis.Electronically signed by: ADAL SUAREZ (Apr 09, 2023 06:06:28)
[2023-04-09 06:12] LABS: ALANINE AMINOTRANSFERASE 23 Units/L (12-78); ALBUMIN 2.3 g/dL (3.4-5.0); ALKALINE PHOSPHATASE 87 Units/L (46-116); ASPARTATE AMINO TRANSFERASE 39 Units/L (15-37); BLOOD UREA NITROGEN 15 mg/dL (7-18); CARBON DIOXIDE 27.9 mmol/L (21-32); CHLORIDE 100 mmol/L (98-107); COR CA(FOR HYPOALB) 15.1 mg/dL (8.5-10.1); COR NA(FOR HYPERGLY) 132 mmol/L (136-145); CREATININE 1.05 mg/dL (0.70-1.30); GLUCOSE 117 mg/dL (65-99); POTASSIUM 4.3 mmol/L (3.5-5.1); SODIUM 132 mmol/L (136-145); eGFR NON BLACK RACES > 60 (>60)
[2023-04-09 06:16] LABS: CALCIUM 13.7 mg/dL (8.5-10.1)
[2023-04-09 06:20] LABS: PLATELET MORPHOLOGY COMMENT NORMAL (NORMAL)
[2023-04-09 06:21] LABS: HYPOCHROMASIA SLIGHT; MICROCYTOSIS SLIGHT
[2023-04-09] MEDS: PULMICORT NEB TX 0.5 MG NEB SCH (08:51)
[2023-04-09] MEDS: ALBUMIN HUMAN 25%- 100 ML 100 ML IV SCH (09:17)
[2023-04-09] MEDS: ELIQUIS PO SCH (09:17)
[2023-04-09] MEDS: LEVAQUIN PREMIX IV 500 MG 500 MG/100 ML BAG IV SCH (09:17)
[2023-04-09] MEDS: COLACE CAP 100 MG PO SCH (09:17)
[2023-04-09] MEDS: PROTONIX TAB 40 MG PO SCH (09:17)
[2023-04-09] MEDS: LASIX IVP SCH (09:17)
[2023-04-09] MEDS: FLOMAX PO SCH (09:17)
[2023-04-09] MEDS: CHECK PATCH XX SCH (09:18)
[2023-04-09] MEDS: CHRONULAC PO SCH (09:18)
[2023-04-09] MEDS: NICOTINE PATCH TD SCH (09:26)
[2023-04-09 09:43] VITALS: RESP 20
[2023-04-09 13:37] VITALS: BP 130/62; PULSE 102; TEMP 98.2; O2SAT 94
== END 2023-04-09 14:00 | disposition home or self-care (01) | DRG 843 ==
LOC: U 09:50 → ER 09:50 → OBSVTOIN 15:57 → U 16:29 → MED/SURG 20:56
PROVIDERS: ADMIT Internal Medicine; ATTEND Internal Medicine